=== PATIENT | female | born 1995 | race Caucasian/White ===

== ENCOUNTER 2019-11-26 15:18 | Emergency (ER) | payer OTHER, SELFPAY ==
--- NOTE | ~2019-11-26 | CT_ITS ---
EXAMINATION: CT abdomen pelvis wo con EXAM DATE: 11/26/2019 19:29 INDICATION: Right-sided abdominal pain, right flank pain radiating to back. TECHNIQUE: Spiral CT of the abdomen and pelvis was performed without contrast. Axial, coronal and sag ittal images were reviewed. The dose-length product (DLP) for this examination was 296.79 mGy-cm. T he exposure was tailored according to patient size (auto mA exposure control), and iterative reconstr uction (ASIR) was used as additional dose reduction technique. There is no prior study for compariso n. FINDINGS: There is no nephrolithiasis or hydronephrosis. The uterus is retroverted and morphologica lly normal. The bladder is unremarkable. The liver, spleen, adrenal glands and pancreas are unrema rkable. Gallbladder is unremarkable. No biliary obstruction. There is no retroperitoneal or pelvic lymphadenopathy. The appendix is normal. The stomach and small bowel are unremarkable. There is moderate amount of c olonic stool. No free intraperitoneal gas. The heart is normal in size. There are no pericardial or pleural effusions. The lung bases are unremarkable. The bones are unremarkable. IMPRESSION: 1. No nephrolithiasis, hydronephrosis or acute intra-abdominal findings. 2. Moderate colonic stool. Reviewed, dictated and finalized at location A.
[2019-11-26 15:46] VITALS: BP 114/74; PULSE 94; RESP 16; TEMP 37; O2SAT 100
[2019-11-26 16:03] LABS: Basophils Percent Auto 0.3 % (0.2-1.2); Eosinophils Absolute Auto 0.1 K/mm3 (0-0.3); Eosinophils Percent Auto 2.2 % (0-4.4); Hemoglobin 12.5 g/dL (12.0-15.0); Lymphocytes Absolute Auto 1.41 K/mm3 (0.9-3.2); Lymphocytes Percent Auto 23.7 % (18.3-44.2); Mean Corpuscular HGB Conc 33.8 g/dl (32-36); Mean Corpuscular Hemoglobin 28.8 pg (26-34); Mean Corpuscular Volume 85.3 fl (80-100); Mean Platelet Volume 11.8 fl (7.4-10.4); Monocytes Absolute Auto 0.5 K/mm3 (0.1-0.6); Monocytes Percent Auto 7.6 % (2.6-8.5); Neutrophils Percent Auto 66.2 % (45.5-73.1); Platelet Count Result 144 k/mm3 (150-375); Red Blood Count 4.34 M/mm3 (4.2-5.4); Red Cell Distribution Width 12.4 % (11.5-14.5)
[2019-11-26 16:14] LABS: Alanine Aminotransferase 15 U/L (4-35); Albumin Level 4.2 g/dL (3.5-5.1); Alkaline Phosphatase 37 U/L (38-126); Anion Gap 7 mmol/L (8-16); Aspartate Amino Transferase 23 U/L (14-36); Bilirubin,Total 0.4 mg/dL (0.2-1.3); Blood Urea Nitrogen 13 mg/dL (7-17); Calcium 8.8 mg/dL (8.4-10.2); Carbon Dioxide 27 mmol/L (22-30); Chloride 101 mmol/L (98-107); Estimated CRCL calculation 103 ml/min; Estimated Glomerular Filt Rate > 60; Glucose 90 mg/dL (65-105); Lipase 114 U/L (23-300); Potassium 3.8 mmol/L (3.4-5.0); Sodium 135 mmol/L (137-145)
[2019-11-26 16:25] LABS: Add Urine Microscopic? YES; Appearance Urine Clear (Clear); Bacteria Urine Trace /hpf; Bilirubin Urine Negative (Negative); Blood Urine Negative (Negative); Color Urine Yellow (Yellow); Glucose Urine UA Negative (Negative); Ketones Urine Negative (Negative); Leukocyte Esterase Ur 2+ LEU/UL (Negative); Mucus Urine Rare /lpf; Nitrate Urine Negative (Negative); Protein Urine Negative (Negative); Specific Grav Ur 1.015 (1.001-1.035); Squamous Epithelial Cell Urine Many /hpf (Few); Urobilinogen Urine Negative mg/dL (<2.0)
--- NOTE | 2019-11-26 18:38 | ED.ABDPAIN ---
HPI - Abdominal Pain General Chief Complaint: Abdominal Pain Stated Complaint: flank pain, on abx for uti Time Seen by Provider: 11/26/19 16:40 Source: patient Mode of arrival: ambulatory Limitations: no limitations History of Present Illness HPI narrative: Patient is a 24-year-old female who presents with right flank pain for the last 2 days as an intermittent aching pain and pressure was having urinary frequency and urgency over the weekend saw her primary care doctor Friday and was started on an antibiotic. Patient notes pain that intensifies throughout the day and resolves. Patient denies fever vomiting diarrhea vaginal complaints. Patient denies similar occurrence in the past and presents in no distress per private vehicle Related Data Home Medications Medication Instructions Recorded Confirmed levothyroxine 100 mcg PO DAILY 11/26/19 montelukast [Singulair] 10 mg PO HS 11/26/19 nitrofurantoin monohyd/m-cryst 100 mg 11/26/19 Allergies Allergy/AdvReac Type Severity Reaction Status Date / Time cefdinir Allergy Mild Hives / Verified 11/26/19 17:50 Red Face Review of Systems Review of Systems: All systems reviewed & are unremarkable except as noted in HPI and below PMFSH Social History Social History (Updated 11/26/19 @ 18:40 by Aly Barton PA-C) Smoking status: Never smoker Gender identity (if verbalized by the patient): Female Exam Narrative: Exam Narrative: GENERAL: Well-appearing, well-nourished, and in no acute distress. HEAD: Normocephalic, atraumatic. EYES: PERRLA and EOMI. ENT: Nares clear, no rhinorrhea or epistaxis. Mucous membranes moist. CHEST: Clear to auscultation. No respiratory distress. No wheezes rales or rhonchi HEART: Regular rate and rhythm. No murmur heard. Normal peripheral pulses. ABDOMEN: Soft, mild tenderness to the right side of the abdomen no rebound or guarding, nondistended EXTREMITIES: Normal range of motion. No edema. SKIN: Warm, dry, no rash. NEURO: No focal deficits. Alert and oriented x3. PSYCH: Normal mood and affect. Course Course Emergency Course: Patient in the room in no distress aware of case findings treatment plan and diagnosis agreeing to follow-up as directed with gynecology and primary care. Vital Signs Vital signs: Vital Signs Temperature 98.6 F 11/26/19 15:46 Pulse Rate 94 11/26/19 15:46 Respiratory Rate 16 11/26/19 15:46 Blood Pressure 114/74 11/26/19 15:46 Pulse Oximetry 100 11/26/19 15:46 Temperature 98.6 F 11/26/19 15:46 Pulse Rate 94 11/26/19 15:46 Respiratory Rate 16 11/26/19 15:46 Blood Pressure 114/74 11/26/19 15:46 Pulse Oximetry 100 11/26/19 15:46 MDM - Abdominal Pain MDM Narrative Medical decision making narrative: Patient with likely urinary tract infection and constipation as the etiology of her discomfort afebrile nontoxic-appearing no distress made aware of case findings treatment plan and diagnosis felt appropriate for outpatient reevaluation Lab Data Result diagrams: 11/26/19 15:53 11/26/19 15:53 Labs: Lab Results 11/26/19 11/26/19 11/26/19 Range/Units 15:53 15:53 16:02 WBC 6.0 (4.5-10.0) K/mm3 RBC 4.34 (4.2-5.4) M/mm3 Hgb 12.5 (12.0-15.0) g/dL Hct 37.0 (37.0-47.0) % MCV 85.3 (80-100) fl MCH 28.8 (26-34) pg MCHC 33.8 (32-36) g/dl RDW 12.4 (11.5-14.5) % Plt Count 144 L (150-375) k/mm3 MPV 11.8 H (7.4-10.4) fl Immature Gran % (Auto) 0.0 (0-0.5) % Neut % (Auto) 66.2 (45.5-73.1) % Lymph % (Auto) 23.7 (18.3-44.2) % [place] % (Auto) 7.6 (2.6-8.5) % Eos % (Auto) 2.2 (0-4.4) % Baso % (Auto) 0.3 (0.2-1.2) % Lymph # (Auto) 1.41 (0.9-3.2) K/mm3 [place] # (Auto) 0.5 (0.1-0.6) K/mm3 Eos # (Auto) 0.1 (0-0.3) K/mm3 Baso # (Auto) 0.0 (0.0-0.1) K/mm3 Abs Immat Gran (auto) 0.00 (0.00-0.031) K/mm3 Absolute Neuts (auto) 4.0 (1.3-6.7) K/mm3 Absolute Nu
[2019-11-26 20:04] VITALS: BP 110/59; PULSE 80; RESP 18; TEMP 36.6; O2SAT 100
== END 2019-11-26 20:05 | disposition home or self-care (01) ==
PROVIDERS: Emergency Provider Emergency Medicine; PCP Nurse Practitioner Adult Health
DX: N39.0 Urinary tract infection, site not specified (principal)
CPT/HCPCS: 36415; 74176; 80053; 81001; 81025; 83690; 85025; 99284

== ENCOUNTER → 2020-07-21 06:58 | Outpatient (CLI) | payer OTHER, SELFPAY ==
[2020-07-21 19:49] LABS: SARS-CoV-2 RNA PCR Negative
== END ==
PROVIDERS: PCP Nurse Practitioner Adult Health; Visit Provider Nurse Practitioner Adult Health
DX: Z20.822 Contact with and (suspected) exposure to COVID-19 (principal)
CPT/HCPCS: C9803; U0003; U0005

== ENCOUNTER → 2020-08-05 06:38 | Outpatient (CLI) | payer OTHER, SELFPAY ==
[2020-08-06 00:41] LABS: SARS-CoV-2 RNA PCR Negative
== END ==
PROVIDERS: PCP Nurse Practitioner Adult Health; Visit Provider Nurse Practitioner Adult Health
DX: Z20.822 Contact with and (suspected) exposure to COVID-19 (principal); R09.81 Nasal congestion
CPT/HCPCS: C9803; U0003; U0005

== ENCOUNTER 2020-09-07 08:54 | Emergency (ER) | payer OTHER, SELFPAY ==
[2020-09-07 08:56] VITALS: BP 109/66; PULSE 75; RESP 19; TEMP 36.3; O2SAT 100
[2020-09-07] MEDS: FAMOTIDINE 20 MG TABLET PO (09:15)
[2020-09-07] MEDS: diphenhydrAMINE HCl CAP 25 MG CAPSULE PO (09:15)
--- NOTE | 2020-09-07 09:47 | ED.ALLEREA ---
HPI - Allergic Reaction General Chief complaint: Allergic Reaction Stated complaint: allergic reaction Time Seen by Provider: 09/07/20 09:06 Source: patient Mode of arrival: ambulatory Limitations: no limitations History of Present Illness HPI narrative: This is a 24-year-old female that presents to the emergency department for itchy rash since this morning. Reports she recently finished nitrofurantoin for urinary tract infection. This was prescribed by her OB. She is currently about 19 weeks . Reports everything has been going well with the . Denies any pelvic cramping or vaginal bleeding currently. She is feeling baby moving. Denies fever, swelling in the mouth or throat, or shortness of breath. Related Data Home Medications Medication Instructions Recorded Confirmed levothyroxine 100 mcg PO DAILY 11/26/19 montelukast [Singulair] 10 mg PO HS 11/26/19 nitrofurantoin monohyd/m-cryst 100 mg 11/26/19 Allergies Allergy/AdvReac Type Severity Reaction Status Date / Time cefdinir Allergy Severe Hives / Verified 09/07/20 09:11 Red Face Review of Systems Review of Systems: Narrative: CONSTITUTIONAL: Denies fever SKIN: Reports rash and itching. All systems reviewed & are unremarkable except as noted in HPI and below PMFSH Past Medical History Medical History (Updated 09/07/20 @ 09:53 by Rose Marie Rdz PA-C) History of hypothyroidism Social History Social History (Updated 11/26/19 @ 18:40 by Aly Barton PA-C) Smoking status: Never smoker Gender identity (if verbalized by the patient): Female Exam Narrative: Exam Narrative: GENERAL: Well-appearing, well-nourished, and in no acute distress. HEAD: Normocephalic, atraumatic. EYES: EOMI. ENT: Nares clear, no rhinorrhea or epistaxis. Mucous membranes moist. Oropharynx without tonsillar hypertrophy exudate or other lesions. Bilateral TMs pearly piña non-bulging NECK: Supple. No adenopathy or masses. CHEST: Clear to auscultation. No respiratory distress. No wheezes rales or rhonchi HEART: Regular rate and rhythm. No murmur heard. Normal peripheral pulses. EXTREMITIES: Normal range of motion. No edema. SKIN: Warm, dry. Red, macular rash present diffusely NEURO: No focal deficits. Alert and oriented x3. PSYCH: Normal mood and affect Course Vital Signs Vital signs: Vital Signs Temperature 97.3 F L 09/07/20 08:56 Pulse Rate 75 09/07/20 08:56 Respiratory Rate 19 09/07/20 08:56 Blood Pressure 109/66 09/07/20 08:56 Pulse Oximetry 100 09/07/20 08:56 Temperature 97.3 F L 09/07/20 08:56 Pulse Rate 75 09/07/20 08:56 Respiratory Rate 19 09/07/20 08:56 Blood Pressure 109/66 09/07/20 08:56 Pulse Oximetry 100 09/07/20 08:56 MDM - Allergic Reaction MDM Narrative Medical decision making narrative: Patient presents the emergency department for itchy rash after recently finishing an antibiotic. Given dose of Decadron, Pepcid and Benadryl in the ED. Will be instructed on antihistamines for home as well. She was instructed to follow-up with her primary doctor. She was given warnings to return to the ER Patient is currently 19 weeks . Denies any problems with the . Is feeling baby moving. Has another follow-up visit next week Critical Care Time Critical Care Time Critical Care Time: No Discharge Plan Discharge Clinical Impression: Allergic reaction Qualifiers: Encounter type: initial encounter Qualified Code(s): T78.40XA - Allergy, unspecified, initial encounter Patient Disposition: Home, Self-Care Condition: Stable Instructions: Urticaria (ED) Additional Instructions: Return to the emergency department if you experience fever, difficulty breathing, trouble swallowing, or any other symptoms that are concerning to you Take a Pepcid and Zyrtec daily. Benadryl as needed for severe itching Follow-up with your primary care doctor and your OB at your next scheduled ap
== END 2020-09-07 10:03 | disposition home or self-care (01) ==
PROVIDERS: Emergency Provider Emergency Medicine; PCP Nurse Practitioner Adult Health
DX: O9A.212 Injury, poisoning and certain other consequences of external causes complicating pregnancy, second trimester (principal); T78.40XA Allergy, unspecified, initial encounter; Z3A.19 19 weeks gestation of pregnancy
CPT/HCPCS: 99283; A9270

== ENCOUNTER 2020-09-08 17:14 | Emergency (ER) | payer OTHER, SELFPAY ==
[2020-09-08 17:18] VITALS: BP 106/60; PULSE 76; RESP 18; TEMP 36.6; O2SAT 100
--- NOTE | 2020-09-08 17:25 | PC.NURSE ---
Patient tells me that she last took zyrtec and pepcid this AM and one benadryl at approximately 1430 today. She reports that hives have been worsening throughout the day and is uncomfortable with the itching at this time. No other concerns are reported by the patient at this time.
[2020-09-08] MEDS: predniSONE 20 MG TABLET 40 MG PO (18:45)
[2020-09-08 18:46] VITALS: BP 102/65; PULSE 88; RESP 19; TEMP 36.9; O2SAT 100
--- NOTE | 2020-09-08 19:04 | ED.GENADULT ---
HPI - General Adult General Chief complaint: Allergic Reaction Stated complaint: allergic reAction Time Seen by Provider: 09/08/20 17:22 Source: patient and RN notes reviewed Mode of arrival: ambulatory Limitations: no limitations History of Present Illness HPI narrative: Patient is a 24-year-old female who presents with recurrence of her hives patient was seen recently for this they began after taking antibiotics was started on antihistamines and had improvement but today had a reoccurrence patient presents noting itching and hives but denies other URI symptoms or complaints was nontoxic-appearing on arrival notes that her URI symptoms have resolved Related Data Home Medications Medication Instructions Recorded Confirmed levothyroxine 100 mcg PO DAILY 11/26/19 montelukast [Singulair] 10 mg PO HS 11/26/19 nitrofurantoin monohyd/m-cryst 100 mg 11/26/19 Allergies Allergy/AdvReac Type Severity Reaction Status Date / Time cefdinir Allergy Severe Hives / Verified 09/08/20 17:34 Red Face Review of Systems Review of Systems: All systems reviewed & are unremarkable except as noted in HPI and below PMFSH Past Medical History Medical History History of hypothyroidism Social History Social History Smoking status: Never smoker Gender identity (if verbalized by the patient): Female Exam Narrative: Exam Narrative: GENERAL: Well-appearing, well-nourished, and in no acute distress. HEAD: Normocephalic, atraumatic. EYES: PERRLA and EOMI. ENT: Nares clear, no rhinorrhea or epistaxis. Mucous membranes moist. Oropharynx without tonsillar hypertrophy exudate or other lesions. No angioedema in the oropharynx NECK: Supple. No adenopathy or masses. Stridor CHEST: Clear to auscultation. No respiratory distress. No wheezes rales or rhonchi HEART: Regular rate and rhythm. No murmur heard. Normal peripheral pulses. EXTREMITIES: Normal range of motion. No edema. SKIN: Warm, dry, patient with a few scattered hives on exam NEURO: No focal deficits. Alert and oriented x3. Cranial nerves II through XII grossly intact PSYCH: Normal mood and affect. Course Course Emergency Course: Patient with a urticaria will be discharged home with continued instructions for antihistamines she has discontinued the antibiotics is afebrile nontoxic-appearing felt appropriate for outpatient reevaluation by primary care Vital Signs Vital signs: Vital Signs Temperature 97.9 F 09/08/20 17:18 Pulse Rate 76 09/08/20 17:18 Respiratory Rate 18 09/08/20 17:18 Blood Pressure 106/60 09/08/20 17:18 Pulse Oximetry 100 09/08/20 17:18 Temperature 98.4 F 09/08/20 18:46 Pulse Rate 88 09/08/20 18:46 Respiratory Rate 19 09/08/20 18:46 Blood Pressure 102/65 09/08/20 18:46 Pulse Oximetry 100 09/08/20 18:46 Medical Decision Making MDM Narrative Medical decision making narrative: Patient in the room no distress aware of case findings treatment plan and diagnosis agreeing to follow-up as instructed or to return if symptoms worsen or concerns patient is afebrile nontoxic-appearing in no distress Vital Signs Vital Signs: Vital Signs Temperature 97.9 F 09/08/20 17:18 Pulse Rate 76 09/08/20 17:18 Respiratory Rate 18 09/08/20 17:18 Blood Pressure 106/60 09/08/20 17:18 Pulse Oximetry 100 09/08/20 17:18 Temperature 98.4 F 09/08/20 18:46 Pulse Rate 88 09/08/20 18:46 Respiratory Rate 19 09/08/20 18:46 Blood Pressure 102/65 09/08/20 18:46 Pulse Oximetry 100 09/08/20 18:46 Discharge Plan Discharge Clinical Impression: Urticaria Patient Disposition: Home, Self-Care Condition: Stable Instructions: Antibiotic Form, Urticaria (ED) Additional Instructions: Follow up with your primary care provider within 5-7 days. Go to ER for shortness of breath, difficulty breathi
[2020-09-08] MEDS: SODIUM CHLORIDE 0.9% IV 1,000 ML 999 ML IV CONT (20:44)
[2020-09-08] MEDS: FAMOTIDINE 20 MG/2 ML VIAL IV PUSH (20:45)
[2020-09-08] MEDS: diphenhydrAMINE HCl INJ 50 MG/ML VIAL 25 MG IV PUSH (20:45)
[2020-09-08 21:56] VITALS: BP 109/66; PULSE 72; RESP 16; TEMP 36.7; O2SAT 98
== END 2020-09-08 21:56 | disposition home or self-care (01) ==
PROVIDERS: Emergency Provider Emergency Medicine; PCP Nurse Practitioner Adult Health
DX: L50.9 Urticaria, unspecified (principal); E03.9 Hypothyroidism, unspecified
CPT/HCPCS: 96361; 96374; 96375; 99284; J1200; J7030; J7512

== ENCOUNTER 2021-04-19 14:51 | Outpatient (CLI) | payer OTHER, SELFPAY ==
--- NOTE | ~2021-04-19 | US_ITS ---
EXAMINATION: US pelvic complete w TV EXAM DATE: 04/19/2021 15:36 INDICATION: Menorrhagia. TECHNIQUE: Pelvic transabdominal and transvaginal sonogram was performed. There are multiple graysca le and Doppler images available for interpretation. There is no prior study for comparison. FINDINGS: Uterus measures 8.0 x 4.6 cm, and is morphologically normal. Endometrial stripe measures 5 mm, within normal limits. There is small free pelvic fluid. Right adnexa: The ovary measures 3.4 x 1.9 x 2.3 cm and is morphologically normal. Ovarian vascular f low confirmed. Left adnexa: The ovary measures 3.0 x 1.6 x 1.7 cm and is morphologically normal. Ovarian vascular fl ow confirmed. IMPRESSION: 1. Unremarkable pelvic ultrasound exam. Reviewed, dictated and finalized at location A. 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
== END 2021-04-19 14:52 | disposition home or self-care (01) ==
PROVIDERS: PCP Nurse Practitioner Adult Health; Visit Provider Nurse Practitioner Adult Health
DX: N92.0 Excessive and frequent menstruation with regular cycle (principal)
CPT/HCPCS: 76830; 76856

== ENCOUNTER → 2021-05-02 01:29 | Outpatient (CLI) | payer OTHER, SELFPAY ==
[2021-05-02 21:10] LABS: SARS-CoV-2 RNA PCR Positive
== END ==
PROVIDERS: PCP Nurse Practitioner Adult Health; Visit Provider Nurse Practitioner Adult Health
DX: U07.1 COVID-19 (principal)
CPT/HCPCS: C9803; U0003; U0005

== ENCOUNTER 2021-09-18 16:57 | Outpatient (CLI) | payer OTHER, SELFPAY ==
[2021-09-18 17:19] LABS: Basophils Percent Auto 0.2 % (0.2-1.2); Eosinophils Absolute Auto 0.2 K/mm3 (0-0.3); Eosinophils Percent Auto 2.4 % (0-4.4); Hematocrit 35.9 % (37.0-47.0); Hemoglobin 12.3 g/dL (12.0-15.0); Immature Granulocyte Absolute 0.02 K/mm3 (0.00-0.031); Immature Granulocyte Percent A 0.3 % (0-0.5); Immature Platelet Fraction Pct 9.1 % (0.9-11.2); Lymphocytes Absolute Auto 1.14 K/mm3 (0.9-3.2); Mean Corpuscular HGB Conc 34.3 g/dl (32-36); Mean Corpuscular Hemoglobin 30.7 pg (26-34); Mean Corpuscular Volume 89.5 fl (80-100); Mean Platelet Volume 11.2 fl (7.4-10.4); Monocytes Absolute Auto 0.5 K/mm3 (0.1-0.6); Monocytes Percent Auto 7.6 % (2.6-8.5); Neutrophils Absolute Auto 4.5 K/mm3 (1.3-6.7); Neutrophils Percent Auto 71.5 % (45.5-73.1); Platelet Count Result 144 k/mm3 (150-375); Red Blood Count 4.01 M/mm3 (4.2-5.4); Red Cell Distribution Width 13.7 % (11.5-14.5); White Blood Count 6.3 K/mm3 (4.5-10.0)
[2021-09-18 18:09] LABS: HIV 1/2 Ab P24 Ag Result Negative (Negative)
[2021-09-18 18:46] LABS: Hepatitis C Virus Antibody Negative (Negative)
[2021-09-18 18:54] LABS: Hepatitis B Surface Antigen Negative (Negative); Rubella IgG Antibody 79.5 IU/ML
[2021-09-20 07:29] LABS: Rapid Plasma Reagin Non-Reactive (NonReactive)
[2021-09-21 16:56] LABS: CMV IgG Antibody <0.60 U/mL (<0.60)
== END 2021-09-18 16:58 | disposition home or self-care (01) ==
LOC: ANHLAB 16:59
PROVIDERS: PCP Nurse Practitioner Adult Health; Visit Provider Obstetrics & Gynecology
DX: O09.891 Supervision of other high risk pregnancies, first trimester (principal); O99.280 Endocrine, nutritional and metabolic diseases complicating pregnancy, unspecified trimester; N94.89 Other specified conditions associated with female genital organs and menstrual cycle; E03.9 Hypothyroidism, unspecified; Z3A.00 Weeks of gestation of pregnancy not specified
CPT/HCPCS: 36415; 82105; 82677; 84443; 84702; 85025; 85055; 86336; 86592; 86644; 86703; 86747; 86762; 86787; 86803; 86850; 86900; 86901; 87086; 87340; G0432

== ENCOUNTER 2022-01-15 10:43 | Observation (INO) | payer OTHER, SELFPAY ==
--- NOTE | 2022-01-15 10:43 | OBADM ---
This patient, Millicent Centeno, admitted to the OB room OB Post [facility] for observation. Patient/family oriented to hospital policies and general routines including ID bracelet, bed and alarms, visiting hours, pain management, procedures, bathroom and other care routines, personal items, smoking policy, room service/diet, and visiting hours. Patient/Family are encouraged to report perceived risks to care and to ask questions if they do not understand what they are told or what they should do.
[2022-01-15 11:00] VITALS: BP 100/62; PULSE 95; BMI 24.8
[2022-01-15 11:01] VITALS: BP 98/61; PULSE 97
[2022-01-15 11:16] VITALS: BP 106/69; PULSE 96
[2022-01-15 11:31] VITALS: BP 104/69; PULSE 84
[2022-01-15 12:11] LABS: Appearance Urine Clear (Clear); Bilirubin Urine Negative (Negative); Blood Urine Negative (Negative); Color Urine Yellow (Yellow); Glucose Urine UA Negative (Negative); Ketones Urine Negative (Negative); Leukocyte Esterase Ur Trace LEU/UL (NEGATIVE); Nitrate Urine Negative (Negative); Protein Urine Negative (Negative)
[2022-01-15 12:55] LABS: Add Urine Microscopic? NO
--- NOTE | 2022-01-16 11:43 | PM.OBTRLD ---
OB - Triage/Final Diagnosis Visit Information Comments/Additional reasons for admission: I have assessed the risk for this patient, Millicent eCnteno, and determined that she would benefit from observation care. Evaluation Laboratory results: Laboratory Tests 01/15/22 11:50 Urine Color Yellow Urine Appearance Clear Urine pH 7.0 Ur Specific Thayer 1.020 Urine Protein Negative Urine Glucose (UA) Negative Urine Ketones Negative Ur Blood (Man) Negative Urine Nitrate Negative Urine Bilirubin Negative Urine Urobilinogen 1.0 Ur Leukocyte Esterase Trace H Final Diagnosis (1) Abdominal pain affecting : Code(s): O26.899 - Other specified related conditions, unspecified trimester; R10.9 - Unspecified abdominal pain Status: Acute
== END 2022-01-15 13:05 | disposition home or self-care (01) ==
PROVIDERS: Admitting Provider Obstetrics & Gynecology; Visit Provider Obstetrics & Gynecology
DX: O47.03 False labor before 37 completed weeks of gestation, third trimester (principal); Z3A.35 35 weeks gestation of pregnancy
CPT/HCPCS: 81003; 87086; G0378; G0379

== ENCOUNTER 2022-02-12 05:14 | Inpatient (IN) | payer OTHER, SELFPAY ==
[2022-02-12] VITALS (92 sets, daily range): BP systolic 82–120; BP diastolic 53–82; PULSE 51–101; RESP 16; TEMP 36.3–36.8; O2SAT 74–100; BMI 25.4
--- OUTSIDE RECORDS SUMMARY | 2022-02-12 05:22 | XMS_ITS ---
:1995 Author Care Team Providers Name Role Phone Valente Hoang Primary Care Provider Unavailable Allergies None recorded. Medications Name Status Start Date Stop Date ? ? Deb-D 24 Hour 180 mg-240 mg tablet,extended release Active ? Not available TAKE 1 TABLET BY MOUTH ONCE DAILY FOR 30 DAYS azithromycin 250 mg tablet Active ? Not a vailable Euthyrox 100 mcg tablet Active ? Not avai lable fluconazole 150 mg tablet Active ? Not av ailable TAKE 1 TABLET BY MOUTH DIRECTED FOR 1 DAY levothyroxine 75 mcg tablet Active ? Not available medroxyprogesterone 150 mg/mL intramuscular suspension Active ? Not available methylprednisolone 4 mg tablets in a dose pack Active ? Not available montelukast 10 mg tablet Active ? Not nicho ilable TAKE 1 TABLET BY MOUTH ONCE DAILY nitrofurantoin monohydrate/macrocrystals 100 mg capsule Active ? Not available TAKE 1 CAPSULE BY MOUTH EVERY 12 HOURS FOR 7 DAYS Problems None recorded. Procedures None recorded. Results Lab Results None recorded. Past Encounters None recorded. Social History None recorded. Vaccine List None recorded. Plan of Care Reminders Provider Appointments None recorded. ? ? Lab None recorded. ? ? Referral None recorded. ? ? Procedures None recorded. ? ? Surgeries None recorded. ? ? Imaging None recorded. ? ? Vitals None recorded.
--- OUTSIDE RECORDS SUMMARY | 2022-02-12 05:22 | XMS_ITS ---
:1995 Author Care Team Providers Name Role Phone JAVIER GARBER NP Primary Care Provider Unavailable Allergies Code Code System Name Reaction Severity Status Onset Omnicef Hives ? Active ? Penicillins ? ? Active ? Medications Name Status Start Date Stop Date ? ? Deb-D 24 Hour 180 mg-240 mg tablet,extended release Complete d ? 10/20/2019 TAKE 1 TABLET BY MOUTH ONCE DAILY FOR 30 DAYS amoxicillin 875 mg-potassium clavulanate 125 mg Unknown ? Not available tablet azithromycin 250 mg tablet Completed ? 04/18 [id number]-dqvbetwr 50 mg-300 Unknown ? Not available mg-40 mg capsule cefuroxime axetil 250 mg tablet Completed ? 08/22/2017 Depo-Provera 150 mg/mL intramuscular suspension Completed ? 08/04/2019 Inject 1 mL every 3 months by intramuscular route. Depo-Provera 150 mg/mL intramuscular syringe Completed ? 02/11/2019 Inject 1 mL every 3 months by intramuscular route. doxycycline hyclate 100 mg capsule Completed ? 09/01/2018 Take 1 capsule twice a day by oral route for 10 days. doxycycline monohydrate 100 mg tablet Completed ? 09/01/2018 Euthyrox 100 mcg tablet Active ? Not avai lable TAKE 1 TABLET BY MOUTH ONCE DAILY fluconazole 150 mg tablet Completed ? 2020 fluticasone propionate 50 mcg/actuation nasal Completed ? 09/15/2018 spray,suspension Kenalog 40 mg/mL suspension for injection Completed ? 09/01/2018 Take 1 mL every day by injection route for 1 day. levofloxacin 500 mg tablet Completed ? 08/22 levothyroxine 25 mcg tablet Unknown ? Not available levothyrox
--- OUTSIDE RECORDS SUMMARY | 2022-02-12 05:22 | XMS_ITS ---
:1995 Author Care Team Providers Name Role Phone JAVIER TALAVERAKP [facility] Primary Care Provider [phone] FLY PEREZ MD Pe Manager [phone] Allergies Code Code System Name Reaction Severity Status Onset 2230 RxNorm Cephalexin Itching ? Active ? Omnicef Hives ? Active ? Penicillins ? ? Active ? Medications Name Status Start Date Stop Date ? ? albuterol sulfate HFA 90 mcg/actuation aerosol inhaler Completed ? 04/03/2021 INHALE 2 PUFFS BY MOUTH EVERY 4 HOURS NEEDED Deb-D 24 Hour 180 mg-240 mg tablet,extended release Active ? Not available TAKE 1 TABLET BY MOUTH ONCE DAILY FOR 30 DAYS amoxicillin 875 mg-potassium clavulanate 125 mg Unknown ? Not available tablet aspirin 81 mg tablet,delayed release Active ? Not available TAKE 1 TABLET BY MOUTH ONCE DAILY azithromycin 250 mg tablet Completed ? 08/29 TAKE 2 TABLETS BY MOUTH ON DAY 1 AND EN TAKE 1 TABLET BY MOUTH ONCE A DAY ON DAY 2 THROUGH DAY 5 BinaxNOW COVID-19 Ag Self Test kit Active ? Not available Use as directed [id number]-[id number]-szjkurnd 50 mg-300 Unknown ? Not available mg-40 [...]
--- NOTE | 2022-02-12 05:50 | LDADM ---
This patient, Millicent Centeno, was admitted to Labor/Delivery/Recovery 103 on 02/12/22 at 05:14. Plans for labor, pain management and were discussed with patient. Patient/family oriented to hospital policies and general routines including ID bracelet, bed and alarms, visiting hours, pain management, procedures, bathroom and other care routines, personal items, smoking policy, room service/diet and guest tray routines, security routines, and visiting hours. Patient/Family are encouraged to report perceived risks to care and to ask questions if they do not understand what they are told or what they should do. See OBIX for further documentation.
[2022-02-12 06:18] LABS: Basophils Percent Auto 0.2 % (0.2-1.2); Eosinophils Absolute Auto 0.2 K/mm3 (0-0.3); Eosinophils Percent Auto 2.5 % (0-4.4); Hematocrit 37.6 % (37.0-47.0); Hemoglobin 12.9 g/dL (12.0-15.0); Immature Granulocyte Absolute 0.03 K/mm3 (0.00-0.031); Immature Granulocyte Percent A 0.5 % (0-0.5); Immature Platelet Fraction Pct 9.6 % (0.9-11.2); Lymphocytes Absolute Auto 1.61 K/mm3 (0.9-3.2); Lymphocytes Percent Auto 26.7 % (18.3-44.2); Mean Corpuscular HGB Conc 34.3 g/dl (32-36); Mean Corpuscular Hemoglobin 31.1 pg (26-34); Mean Corpuscular Volume 90.6 fl (80-100); Mean Platelet Volume 11.6 fl (7.4-10.4); Monocytes Absolute Auto 0.6 K/mm3 (0.1-0.6); Monocytes Percent Auto 9.8 % (2.6-8.5); Neutrophils Absolute Auto 3.6 K/mm3 (1.3-6.7); Neutrophils Percent Auto 60.3 % (45.5-73.1); Platelet Count Result 131 k/mm3 (150-375); Red Blood Count 4.15 M/mm3 (4.2-5.4); Red Cell Distribution Width 13.1 % (11.5-14.5)
[2022-02-12] MEDS: OXYTOCIN 30 UNITS/NS 500 ML 30 UNITS/500 ML BAG IV CONT (06:40)
[2022-02-12] MEDS: LACTATED RINGERS 1,000 ML 125 ML IV CONT ×2 (06:40→07:59)
--- NOTE | 2022-02-12 07:17 | WPDOBADMIT ---
Obstetrics - Admit Note Admission Note: record reviewed. No pertinent additions to the history and/or any subsequent changes in the physical findings that are not consistent with the expected course of the were found. Additions to the history and/or subsequent changes in the physical findings follow. Millicent is a 26yo @ 39.0wks admitted for elective IOL. GBS negative complicated by: - Short interval ; last delivery 03/2021 - Hypothyroidism on levothyroxine - Thrombocytopenia; plts 144 - 119- 141 -125 - 106 - 131 (on admission) - Possible HSV exposure? no outbreaks-- ppx @ 36wks FHT's: 120's/ mod tim/ + accels/ no decels - cat 1 TOCO: ctx's q2-4min Cervix: 4/70/-2 Membranes: AROM, clear 0715 Pitocin: 2mU Pitocin per protocol Continuous monitoring; currently reassuring Anesthesia consult for epidural
--- NOTE | 2022-02-12 07:23 | WPDHPUPDATE1 ---
History and Physical Update Update Date/Time: 02/12/22 07:23 History and Physical has been reviewed, including an updated exam of the patient. There are NO changes in the patient's condition. Risks, benefits, and alternatives have been discussed and questions answered. Patient agrees to proceed with procedure.
--- NOTE | 2022-02-12 07:26 | WPDANESEPP ---
Anes - Eval Pre Procedure Procedure: Labor Epidural Date/Time: 02/12/22 07:26 Surgeon: Brad Preop Diagnosis: Pain during labor Pre Op Diagnosis: IOL Patient Data Age: 26 Gender: F Height: 1.71 m Weight: 75 kg Last Vital Signs Pulse 71 02/12/22 07:15 BP 120/74 02/12/22 07:15 O2 Del Method Room Air 02/12/22 05:50 Allergies Allergy/AdvReac Type Severity Reaction Status Date / Time cefdinir Allergy Severe Hives / Verified 02/12/22 06:03 Red Face Home Medications Medication Instructions Recorded Confirmed Type cetirizine 10 mg capsule (Zyrtec) 10 mg PO DAILY PRN Allergy Symptoms 09/18/21 02/12/22 History vits no.10-ferrous 1 tablet PO DAILY 09/18/21 02/12/22 History fumarate 65 mg iron-folic acid 1 mg tablet levothyroxine 150 mcg capsule 150 mcg PO DAILY #90 caps 01/03/22 02/12/22 Rx Laboratory Tests 02/12/22 02/12/22 02/12/22 06:02 06:02 06:02 WBC 6.0 K/mm3 K/mm3 (4.5-10.0) RBC 4.15 M/mm3 L M/mm3 (4.2-5.4) Hgb 12.9 g/dL g/dL (12.0-15.0) Hct 37.6 % % (37.0-47.0) MCV 90.6 fl fl (80-100) MCH 31.1 pg pg (26-34) MCHC 34.3 g/dl g/dl (32-36) RDW 13.1 % % (11.5-14.5) Plt Count 131 k/mm3 L k/mm3 (150-375) MPV 11.6 fl H fl (7.4-10.4) Immature Gran % (Auto) 0.5 % % (0-0.5) Neut % (Auto) 60.3 % % (45.5-73.1) Lymph % (Auto) 26.7 % % (18.3-44.2) Dale % (Auto) 9.8 % H % (2.6-8.5) Eos % (Auto) 2.5 % % (0-4.4) Baso % (Auto) 0.2 % % (0.2-1.2) Lymph # (Auto) 1.61 K/mm3 K/mm3 (0.9-3.2) Dale # (Auto) 0.6 K/mm3 K/mm3 (0.1-0.6) Eos # (Auto) 0.2 K/mm3 K/mm3 (0-0.3) Baso # (Auto) 0.0 K/mm3 K/mm3 (0.0-0.1) Abs Immat Gran (auto) 0.03 K/mm3 K/mm3 (0.00-0.031) Absolute Neuts (auto) 3.6 K/mm3 K/mm3 (1.3-6.7) Absolute Nucleated RBC 0.0 K/mm3 K/mm3 (0.0-0.012) Nucleated RBC % 0.0 % % (0.0-0.2) % Immature Plt Fraction 9.6 % % (0.9-11.2) RPR Pending Blood Type A Positive Antibody Screen Negative Patient hx anesthesia problems: none Family hx anesthesia problems: none Results Review: All pre-operative results and documents have been reviewed as part of the pre-operative evaluation. [facility] Past Medical History Medical History Encounter for insertion of intrauterine contraceptive device 06/16/2018 Encounter for removal of intrauterine contraceptive device 10/22/2018 Encounter for screening examination for sexually transmitted disease History of hypothyroidism Family History Family History Other Arthritis Social History Social History Smoking status: Never smoker Second hand tobacco smoke exposure: No Alcohol intake: never Substance use: never Has the Lack of Transportation Kept You From Medical Appointments or From Getting Medications?: No Within the Past 12 Months, Were You Worried Whether Your Food Would Run Out Before You Got Money to Buy More?: Never True What is Your Housing Situation Today?: I Have Housing Are You Worried That in the Next 2 Months, You May Not Have Your Own Housing to Live In?: No Do You Have Trouble Paying Your Heating Or Electricity Bill?: No Do You Have Trouble Paying For Medicines?: No Are You Currently Unemployed and Looking for Work?: No Highest Level of Education Completed: High School Diploma/GED Do You Have Trouble With Childcare or the Care of a Family Member?: No Gender identity (if verbalized by the patient): Female Sexual Orientation (if Verbalized by the Patient): Straight or Heterosexual Exam Day of Procedure 02/12/
--- NOTE | 2022-02-12 11:54 | PM.OBPRVD ---
OB - Delivery Note Procedure Delivery date: 02/12/22 Events: Elective Induction of Labor Induction method: Per Pitocin Protocol Delivery augmentation: Rupture of Membranes Delivery monitor: External FHT and External Uterine Route of delivery: Laceration Description: Periurethral Delivery repair: vicryl Quantitative Blood Loss (ml): 350 Anesthesia type: Epidural Disposition: Floor [place] Baby Date of : 02/12/22 Time of : 11:34 Weeks of gestation at delivery: 39 gender: Male Weight (pounds): 9 Weight (ounces): 0 presentation: vertex position: Left Occiput Anterior Placenta delivery description: Expressed Cord Vessel Description: 3 Vessels score one minute: 5 score five minutes: 9 Narrative: Millicent rapidly progressed to complete dilation with strong desire to push. She pushed for approximately 3 contractions with good maternal effort. She delivered the 's head over intact perineum. She easily delivered the infant's shoulders and body without complication. The was immediately placed skin to skin. The umbilical cord was then clamped and cut. A segment of the cord was collected for cord gases. The remaining cord blood was collected for typing. With Pitocin running and gentle downward traction on the cord, the placenta delivered without complications. Brisk bleeding was noted and bimanual massage was performed where mild lower uterine segment atony was noted. The atony resolved with good bimanual massage. However, misoprostol 800 mcg was placed rectally to prevent further atony. She was examined and a periurethral laceration was noted. The laceration was repaired using 3-0 Vicryl in the normal fashion. Good hemostasis was noted. Good fundal tone with minimal bleeding was noted. Sponge, lap, instrument, and needle counts were correct at the end the procedure. Mom and baby were left bonding in the birthing suite in stable condition. [facility] Delivery Billing Delivery Delivery: Delivery Charge
[2022-02-12] MEDS: miSOPROStol 200 MCG TABLET 800 MCG (11:55)
[2022-02-12] MEDS: LORATADINE 10 MG TABLET PO (12:00)
--- NOTE | 2022-02-12 14:34 | PC.NURSE ---
Patient transferred to post room #277 via wheelchair. Support person present. Oriented to unit, room, information board, rooming in, admission packet and security measures. Patient verbalizes understanding.
[2022-02-12] MEDS: DOCUSATE SODIUM 100 MG CAPSULE PO (16:27)
[2022-02-12] MEDS: IBUPROFEN 600 MG TABLET PO (16:27)
[2022-02-12 16:28] LABS: Rapid Plasma Reagin Non-Reactive (NonReactive)
[2022-02-12] MEDS: ACETAMINOPHEN 325 MG TABLET 650 MG PO (20:02)
[2022-02-12] MEDS: SIMETHICONE 80 MG TAB.CHEW PO (20:25)
[2022-02-13 01:15] VITALS: BP 98/58; PULSE 74; RESP 16; TEMP 36.6; O2SAT 98
[2022-02-13] MEDS: IBUPROFEN 600 MG TABLET PO ×4 (01:28→22:37)
[2022-02-13] MEDS: SIMETHICONE 80 MG TAB.CHEW PO ×5 (01:28→22:42)
[2022-02-13 05:00] VITALS: BP 94/58; PULSE 60; RESP 16; TEMP 36.4; O2SAT 98
[2022-02-13] MEDS: LEVOTHYROXINE SODIUM 150 MCG TABLET PO (05:16)
[2022-02-13 06:11] LABS: Hematocrit 32.6 % (37.0-47.0); Mean Corpuscular HGB Conc 33.7 g/dl (32-36); Mean Corpuscular Hemoglobin 30.6 pg (26-34); Mean Corpuscular Volume 90.6 fl (80-100); Mean Platelet Volume 12.3 fl (7.4-10.4); Platelet Count Result 104 k/mm3 (150-375); White Blood Count 7.6 K/mm3 (4.5-10.0)
[2022-02-13 07:25] VITALS: BP 97/54; PULSE 66; RESP 16; TEMP 36.2; O2SAT 98
--- NOTE | 2022-02-13 07:30 | PC.NURSE ---
PT introductions made and plan of care discussed per post , pain management, breast feeding, daily care activities. PT sole recipient of such instructions and no barriers to learning identified at this time. PT received such instructions per one to one discussion, mom baby care guide and demonstrations this shift. PT verbalized understanding of such care.
--- NOTE | 2022-02-13 08:36 | WPDANLDPN2 ---
Anes-Prog Note L&D Date/Time: 02/13/22 08:36 Comfortable throughout: labor and delivery Neuraxial method: epidural Epidural/Spinal procedure site: clean & non-tender Neuro status: Neuro function grossly intact. Cardiovascular status: normal Respiratory status: normal Airway patency: baseline Mental status: baseline Post-Op hydration status: normal Vital Signs: Last Vital Signs Temp 97.1 F L 02/13/22 07:25 Pulse 66 02/13/22 07:25 Resp 16 02/13/22 07:25 BP 97/54 L 02/13/22 07:25 Pulse Ox 98 02/13/22 07:25 O2 Del Method Room Air 02/12/22 21:15 Pain score (VAS): 0 Post-procedural complaints: none Patient feedback: Patient satisfied with anesthetic care.
[2022-02-13 09:00] VITALS: PULSE 66; RESP 16; O2SAT 98
[2022-02-13] MEDS: ACETAMINOPHEN 325 MG TABLET 650 MG PO ×2 (09:01→17:44)
[2022-02-13] MEDS: DOCUSATE SODIUM 100 MG CAPSULE PO ×2 (09:02→17:45)
[2022-02-13] MEDS: MULTIVIT/MIN/PREN/FOL AC/IRON TABLET 1 TAB PO (09:02)
[2022-02-13] MEDS: LORATADINE 10 MG TABLET PO (09:03)
--- NOTE | 2022-02-13 12:13 | PC.NURSE ---
Addendum entered by Melody Rogers RN 02/13/22 12:17: RN also addressed the nipple shield in the room. Mother states she was using it because her intermittently bites instead of sucks like her last baby in 2020. Mother is demonstrating latching infant without the shield at this time to the left breast in a dangling cradle position. Mother denies pain with latching and when she experiences pain she detaches and latches more effectively. Original Note: [id number] Introductions were made, then consulted with patient to assess needs related to . Mother led the conversation with her?plans to feed?her and pumping for a freezer supply. Cautioned over stimulating and mother voiced understanding, then states that is her intention to breastfeed and pump her breast so she can stop but have a supply of breast milk for her . Resources provided for inpatient and outpatient services using a resource guide and mom/baby guide. Mother voiced understanding of information, will call if there is a request for assistance. Reported to primary RN.
--- NOTE | 2022-02-13 12:47 | P.PNOB_ITS ---
OB - PN: Subj Subjective Date/time seen: 02/13/22 11:53 Narrative: PPD#1 Millicent reports doing well today. Her bleeding is light. Her pain is controlled. She is tolerating regular diet, voiding, passing gas, and ambulating without issues. She is breast feeding. She would like her son circumcised. She would like to go home tomorrow. OB - PN: Obj Data Labs CBC & Chem 7: 02/13/22 05:12 Labs: Laboratory Results - last 24 hr 02/12/22 02/13/22 06:02 05:12 WBC 7.6 RBC 3.60 L Hgb 11.0 L Hct 32.6 L MCV 90.6 MCH 30.6 MCHC 33.7 RDW 13.0 Plt Count 104 L MPV 12.3 H RPR Non-reactive OB - PN A/P Assessment and Plan (1) Normal vaginal delivery of third : Code(s): O80 - Encounter for full-term uncomplicated delivery Status: Acute Plan day: 1 Plan: routine care and discharge home (tomorrow) Comments: - Pelvic rest; take meds as prescribed - ER return precautions: fever, n/v/abd pain, bleeding, HTN Time Spent With Patient Time: Total time spent is greater than 50% in coordination of care (as documented) at patient's floor/unit and/or counseling patient: Review of Systems Constitutional: Constitutional: Denies chills, Denies fever(s) and Denies headache(s) Eyes: Eyes: Denies change in vision ENT: Denies dizziness and Denies headache(s) Cardiovascular: Cardiovascular: Denies chest pain, Denies palpitations and Denies dyspnea Respiratory: Respiratory: Denies cough and Denies dyspnea Gastrointestinal: Gastrointestinal: Denies nausea and Denies vomiting Neurologic: Denies dizziness and Denies headache(s) Endocrine: Endocrine: Denies palpitations Exam Const: General: cooperative, comfortable and no acute distress Orie ntation/consciousness: patient oriented x3 Resp: Effort & Inspection: normal respiratory effort Auscultation: clear to auscultation bilaterally Cardio: Rate: regular rate GI: Inspection: non-distended GI Palp: No abdominal tenderness and Yes Soft to palpation Auscultation: normal bowel sounds : Other: fundus firm Skin: General skin exam: normal color Neuro: General: patient oriented x3 Extrem: General: normal to inspection Psych: Appearance: grossly normal Affect: normal affect Attitude: medication coordinator perative
[2022-02-13 20:15] VITALS: BP 95/61; PULSE 68; RESP 16; TEMP 36.6; O2SAT 97
[2022-02-14] MEDS: ACETAMINOPHEN 325 MG TABLET 650 MG PO (03:42)
[2022-02-14 07:40] VITALS: BP 99/51; PULSE 71; RESP 16; TEMP 36.2; O2SAT 99
[2022-02-14] MEDS: LEVOTHYROXINE SODIUM 150 MCG TABLET PO (08:27)
[2022-02-14] MEDS: IBUPROFEN 600 MG TABLET PO (08:27)
[2022-02-14] MEDS: MULTIVIT/MIN/PREN/FOL AC/IRON TABLET 1 TAB PO (08:28)
[2022-02-14] MEDS: DOCUSATE SODIUM 100 MG CAPSULE PO (11:07)
--- NOTE | 2022-02-15 09:41 | PM.OBDSVD ---
DS: Admitting Diagnosis Discharge Date 02/14/22 Admitting Diagnosis Elective induction of labor DS: Discharge Diagnosis Discharge Diagnosis (1) Normal vaginal delivery of third : Code(s): O80 - Encounter for full-term uncomplicated delivery Status: Acute OB - DS: Summary OB Procedures : Ultrasound OB Procedures Intrapartum: Spontaneous Vag Delivery OB Procedures: : None Peripartum Data Infant Delivery Method: Natural Vaginal Laceration Description: Periurethral complications: none 1: Gender: Male Disposition of : home Status at Discharge Functional status at discharge: independent ambulation Overall status at discharge: patient is back to baseline Time Spent with Patient Time attestation: Total time spent providing and/or coordinating discharge services: Time spent: Less than 30 minutes Exam Const: General: cooperative, healthy appearing, comfortable and no acute distress Orientation/consciousness: patient oriented x3 Resp: Effort & Inspection: normal respiratory effort Auscultation: clear to auscultation bilaterally Cardio: Rate: regular rate GI: Inspection: non-distended GI Palp: No abdominal tenderness and Yes Soft to palpation Auscultation: normal bowel sounds : Other: fundus firm Skin: General skin exam: normal color Neuro: General: patient oriented x3 Extrem: General: normal to inspection Psych: Appearance: grossly normal Affect: normal affect Attitude: cooperative Discharge Plan Discharge Attending physician on discharge: Nisha Salinas Discharging Clinician: Nisha Salinas Anticipated Discharge Date/Time: 02/14/22 10:00 Patient Disposition: Home, Self-Care Activity: pelvic rest Diet: regular Discharge Instructions: Education: Mom and Baby Guide Given to: Mother Follow-Up: Call your delivering provider's office for an appointment to be seen in: 4 Weeks Mom and baby should come to the [facility] for the follow-up appointment. Appointment Date/Time: February 15, 2022 at 11:00 am What to expect at your follow-up visit: Physical Assessment Call [phone] if you are unable to keep your appointment time. BREAST CARE: * Wear a snug supportive bra. * For engorgement discomfort: Breast Feeding: * Apply warm moist washcloths * Express milk as needed to relieve engorgement * Wear loose clothing * For sore nipples: * Identify correct latch-on * Apply warm moist washcloths before and after nursing * Air dry nipples after nursing * May apply Lansinoh cream to nipples PERINEAL CARE: * Until bleeding stops, use your marivel bottle after urinating * Change your pad frequently throughout the day * You may take sitz baths several times a day (fill your bathtub with warm water and soak for 20 minutes.) Do NOT bathe in the water * No tub baths until seen by your physician - You may shower ACTIVITY: * Rest as much as possible. * Do not exercise or lift anything heavier than your baby (such as laundry or other children.) * Avoid stairs or driving as much as possible. * Do not put anything into the vagina. No douching, tampons, or sexual activity until seen by physician. NOTIFY PHYSICIAN IF YOU HAVE ANY QUESTIONS OR IF ANY OF THE FOLLOWING SYMPTOMS OCCUR: * If your perineum becomes red, swollen, or more painful than what you have experienced in the hospital. * If your vaginal bleeding becomes foul smelling. * If your vaginal bleeding becomes more heavy than a period or if your bleeding changes from pink to bright red. However, you may pass an occasional walnut-sized clot once or twice for the first week . * If you experience a sharp, shooting pain in you calves. * If you discover a hard, reddened area on your breast or if you experience flu-like symptoms. DIET: * Eat regular, well-balanced meals. * Drink pl
[2022-02-15 11:37] VITALS: BP 112/67; PULSE 98; RESP 20; TEMP 36.7; O2SAT 98
== END 2022-02-14 13:40 | disposition home or self-care (01) | DRG 560 ==
LOC: ANHLDR 05:20 → ANHOB2 14:36
PROVIDERS: Admitting Provider Obstetrics & Gynecology; Visit Provider Obstetrics & Gynecology
DX: O99.284 Endocrine, nutritional and metabolic diseases complicating childbirth (principal); D69.6 Thrombocytopenia, unspecified; Z37.0 Single live birth; Z3A.39 39 weeks gestation of pregnancy; E03.9 Hypothyroidism, unspecified; O99.12 Other diseases of the blood and blood-forming organs and certain disorders involving the immune mechanism complicating childbirth; O71.82 Other specified trauma to perineum and vulva; O75.89 Other specified complications of labor and delivery
CPT/HCPCS: 36415; 85025; 85027; 85055; 86592; 86850; 86900; 86901; A9270; J2590; J2795; J7120

== ENCOUNTER 2022-07-16 16:33 | Outpatient (CLI) | payer OTHER, SELFPAY ==
[2022-07-16 17:28] LABS: Basophils Percent Auto 0.2 % (0.2-1.2); Eosinophils Percent Auto 0.2 % (0-4.4); Hematocrit 41.6 % (37.0-47.0); Hemoglobin 13.8 g/dL (12.0-15.0); Immature Granulocyte Absolute 0.02 K/mm3 (0.00-0.031); Immature Granulocyte Percent A 0.2 % (0-0.5); Lymphocytes Absolute Auto 0.87 K/mm3 (0.9-3.2); Lymphocytes Percent Auto 10.7 % (18.3-44.2); Mean Corpuscular HGB Conc 33.2 g/dl (32-36); Mean Corpuscular Hemoglobin 29.7 pg (26-34); Mean Corpuscular Volume 89.7 fl (80-100); Mean Platelet Volume 11.2 fl (7.4-10.4); Monocytes Absolute Auto 0.2 K/mm3 (0.1-0.6); Monocytes Percent Auto 2.6 % (2.6-8.5); Neutrophils Percent Auto 86.1 % (45.5-73.1); Platelet Count Result 193 k/mm3 (150-375); Red Blood Count 4.64 M/mm3 (4.2-5.4); Red Cell Distribution Width 13.2 % (11.5-14.5); White Blood Count 8.1 K/mm3 (4.5-10.0)
[2022-07-16 17:41] LABS: Alanine Aminotransferase 27 U/L (6-35); Albumin Level 4.6 g/dL (3.5-5.1); Alkaline Phosphatase 54 U/L (38-126); Anion Gap 8 mmol/L (8-16); Aspartate Amino Transferase 23 U/L (14-36); Bilirubin,Total 0.5 mg/dL (0.2-1.3); Blood Urea Nitrogen 18 mg/dL (7-17); Calcium 8.8 mg/dL (8.4-10.2); Carbon Dioxide 28 mmol/L (22-30); Chloride 101 mmol/L (98-107); Cholesterol 194 mg/dL (0-200); Estimated Glomerular Filt Rate > 60; Glucose 115 mg/dL (65-110); HDL Direct 60 mg/dL; Potassium 4.1 mmol/L (3.4-5.0); Sodium 137 mmol/L (137-145); Triglycerides 91 mg/dL (<150)
[2022-07-16 17:53] LABS: LDL Cholesterol Direct 99 mg/dL
[2022-07-16 17:56] LABS: Beta HCG Quantitative < 2.39 mIU/ML
[2022-07-16 18:10] LABS: Free T4 Free Thyroxine 1.29 ng/mL (0.78-2.19); Hemoglobin A1C 5.4 % (<5.7); Vitamin D 25 Hydroxy 40.3 ng/mL
[2022-07-19 02:59] LABS: Thyroid Peroxidase Antibodies 1551 IU/mL (<9)
[2022-07-22 11:28] LABS: Gliadin AB, IgG <1.0 U/mL (<15.0); TTG IGA AB <1.0 U/mL (<15.0)
== END 2022-07-16 16:34 | disposition home or self-care (01) ==
PROVIDERS: Visit Provider Obstetrics & Gynecology
DX: N92.6 Irregular menstruation, unspecified (principal); E03.9 Hypothyroidism, unspecified; Z13.9 Encounter for screening, unspecified; T78.1XXA Other adverse food reactions, not elsewhere classified, initial encounter
CPT/HCPCS: 36415; 80053; 80061; 82306; 83036; 84439; 84443; 84702; 85025; 86003; 86255; 86364; 86376

== ENCOUNTER 2022-11-28 15:50 | Emergency (ER) | payer OTHER, SELFPAY ==
[2022-11-28 15:59] VITALS: BP 110/68; PULSE 79; RESP 18; TEMP 36.6; O2SAT 98
--- NOTE | 2022-11-28 16:05 | ED.FEMALEGU ---
HPI - Female Genitourinary General Chief complaint: Urogenital-Female Stated complaint: Female Urogenital Source: patient and RN notes reviewed Mode of arrival: ambulatory Limitations: no limitations History of Present Illness HPI Narrative: 27-year-old female presenting for concern for yeast infection. Endorses vaginal itching, white discharge and burning with urination. Also reports occasional saw our odor. She has recently changed feminine products. LMP ended about a week ago, but she reports spotting. Denies concern for STD or new sexual partner. She denies hematuria, dysuria, frequency or urgency, nausea vomiting diarrhea, fevers or chills. Related Data Allergies Allergy/AdvReac Type Severity Reaction Status Date / Time cefdinir Allergy Severe Hives / Verified 11/28/22 16:10 Red Face Review of Systems Review of Systems: CONSTITUTIONAL: Denies body aches, fever, chills, or sweats. CARDIOVASCULAR: Denies chest pain, palpitations, or edema. RESPIRATORY: Denies cough or dyspnea. GASTROINTESTINAL: Denies abdominal pain, nausea, vomiting, or diarrhea. GENITOURINARY: Reports vaginal itching denies dysuria, frequency, urgency, hematuria, flank pain SKIN: Denies rash, itching, or wounds. MUSCULOSKELETAL: Denies back pain or myalgia. [facility] Past Medical History Medical History Encounter for insertion of intrauterine contraceptive device 06/16/2018 Encounter for removal of intrauterine contraceptive device 10/22/2018 Encounter for screening examination for sexually transmitted disease History of hypothyroidism Family History Family History Other Arthritis Social History Social History Smoking status: Never smoker Second hand tobacco smoke exposure: No Alcohol intake: never Substance use: never Lack of Transportation: No Lack of Food: Never True Current Housing: I Have Housing Concerned About Future Housing: No Difficulty Paying Gas/Electric Bills: No Difficulty Paying for Meds: No Currently Unemployed: No Education: High School Diploma/GED Difficulty w/ Childcare or Family Care: No Living arrangements: with family Occupation/Education: unemployed Gender identity (if verbalized by the patient): Female Sexual Orientation (if Verbalized by the Patient): Straight or Heterosexual Comments At time of signature, I have reviewed and agree with nursing past medical, surgical, social and family history unless otherwise noted. Please see nursing chart for further information. There is no relevant family history pertinent to the presenting complaint Exam Narrative: GENERAL: Well-appearing and in no acute distress. ENT: Mucous membranes pink and moist. NECK: Normal AROM. Supple. CHEST: No respiratory distress. Clear to auscultation. HEART: Regular rate and rhythm. ABDOMEN: Soft, nontender, nondistended, normal active bowel sounds. No CVA tenderness MUSCULOSKELETAL: No bony tenderness. SKIN: Warm, dry, no rash. NEURO: No focal deficits. Alert and oriented x3. Gait steady. PSYCH: Normal affect. Course Course Emergency Course: Patient is aware of diagnosis, understands and agrees to treatment plan. Anticipatory guidance given. Patient agrees to follow-up as directed and is aware of reasons to seek care at the emergency department. Portions of this record may have been created with voice recognition software Level of Care: Express Care Visit Vital Signs Vital signs: Vital Signs Temperature 97.8 F 11/28/22 15:59 Pulse Rate 79 11/28/22 15:59 Respiratory Rate 18 11/28/22 15:59 Blood Pressure 110/68 11/28/22 15:59 Pulse Oximetry 98 11/28/22 15:59 Oxygen Delivery Room Air 11/28/22 15:59 Temperature 97.8 F 11/28/22 15:59 Pulse Rate 79 11/28/22 15:59 Respirato
== END 2022-11-28 16:40 | disposition home or self-care (01) ==
PROVIDERS: Emergency Provider Nurse Practitioner Family; PCP Nurse Practitioner Family
DX: N76.0 Acute vaginitis (principal); E03.9 Hypothyroidism, unspecified
CPT/HCPCS: 81003; 87086; 87088; 87147; 99213; G0463

== ENCOUNTER 2022-12-04 16:03 | Outpatient (CLI) | payer OTHER, SELFPAY ==
--- NOTE | ~2022-12-04 | CT_ITS ---
EXAMINATION: CT sinus wo con DATE: 12/04/2022 16:23 INDICATION: Sinusitis TECHNIQUE: Computed tomography (CT) of the paranasal sinuses was performed without intravenous contra st. The dose-length product was 339.79 mGy-cm. COMPARISON: None FINDINGS: There is mild mucosal thickening of the left maxillary sinus. No air-fluid levels. No signi ficant mucosal thickening otherwise. No mucoperiosteal reaction. Ostiomeatal units are patent. IMPRESSION: 1. Mild left maxillary sinusitis. Reviewed, dictated and finalized at location L.
== END 2022-12-04 16:04 | disposition home or self-care (01) ==
PROVIDERS: PCP Nurse Practitioner Family; Visit Provider Otolaryngology
DX: J32.4 Chronic pansinusitis (principal); J01.00 Acute maxillary sinusitis, unspecified
CPT/HCPCS: 70486

== ENCOUNTER 2022-12-06 12:02 | Outpatient (CLI) | payer OTHER, SELFPAY | END 2022-12-06 12:03 | disposition home or self-care (01) | LOC: ANHLAB 12:04 | PROVIDERS: PCP Nurse Practitioner Family; Visit Provider Student in an Organized Health Care Education/Training Program | DX: R10.2 Pelvic and perineal pain (principal) | CPT/HCPCS: 87086; 87088; 87147 ==

== ENCOUNTER 2023-02-19 16:46 | Outpatient (CLI) | payer OTHER, SELFPAY ==
[2023-02-19 19:11] LABS: Hepatitis B Surface Antigen Negative (Negative)
[2023-02-19 19:16] LABS: HAV RESULT Negative (Negative); Hepatitis B Core IgM Result Negative (Negative)
[2023-02-19 19:28] LABS: Hepatitis C Virus Antibody Negative (Negative)
[2023-02-20 14:27] LABS: Rapid Plasma Reagin Non-Reactive (NonReactive)
[2023-02-21 11:32] LABS: HIV 1 2 Ag Ab 4th Gen w Rflxs Nonreactive (Nonreactive)
== END 2023-02-19 16:47 | disposition home or self-care (01) ==
LOC: ANHLAB 16:47
PROVIDERS: PCP Nurse Practitioner Family; Visit Provider Student in an Organized Health Care Education/Training Program
DX: Z11.3 Encounter for screening for infections with a predominantly sexual mode of transmission (principal)
CPT/HCPCS: 36415; 80074; 86592; 86695; 86696; 87389

== ENCOUNTER 2023-02-20 16:48 | Emergency (ER) | payer OTHER, SELFPAY ==
--- NOTE | 2023-02-20 16:56 | ED.URI ---
HPI - URI/Sore Throat General Chief Complaint: Upper Respiratory Infection Stated Complaint: SORE THROAT/STOMACH Time Seen by Provider: 02/20/23 17:00 History of Present Illness HPI Narrative: 27 y/o female presented for c/o sore throat since yesterday, and lower abdominal pain for one week. Reports painful swallow, stating it makes her feel nauseated. Pt was seen by OBgyn today regarding low abdominal pain, std testing was performed, awaiting results. States strep is going around her son's class. Denies cough, sob, wheezing, fever. Related Data Home Medications Medication Instructions Recorded Confirmed levothyroxine 125 mcg tablet 125 mcg PO DAILY 01/06/23 02/20/23 Allergies Allergy/AdvReac Type Severity Reaction Status Date / Time cefdinir Allergy Severe Hives / Verified 02/20/23 16:55 Red Face cephalexin Allergy Intermediate Itching Verified 02/20/23 16:55 Penicillins Allergy Intermediate Nausea Verified 02/20/23 16:55 Review of Systems Review of Systems: CONSTITUTIONAL: Denies body aches, fever, chills, or sweats. EYES: Denies visual changes, redness, or discharge. ENT: reports sore throat Denies rhinorrhea, congestion, or otalgia. CARDIOVASCULAR: Denies chest pain, palpitations, or edema. RESPIRATORY: Denies dyspnea. GASTROINTESTINAL: Reports abdominal pain, nausea, Denies vomiting, or diarrhea. SKIN: Denies rash, itching, or wounds. MUSCULOSKELETAL: Denies back pain, joint pain, or myalgia. NEUROLOGIC: Denies headache PMFSH Past Medical History Medical History Encounter for insertion of intrauterine contraceptive device 06/16/2018 Encounter for removal of intrauterine contraceptive device 10/22/2018 Encounter for screening examination for sexually transmitted disease History of hypothyroidism Vaginal discharge Family History Family History Other Arthritis Social History Social History Smoking status: Never smoker Second hand tobacco smoke exposure: No Alcohol intake: never Substance use: never Lack of Transportation: No Lack of Food: Never True Current Housing: I Have Housing Concerned About Future Housing: No Difficulty Paying Gas/Electric Bills: No Difficulty Paying for Meds: No Currently Unemployed: No Education: High School Diploma/GED Difficulty w/ Childcare or Family Care: No Living arrangements: with family Occupation/Education: unemployed Gender identity (if verbalized by the patient): Female Sexual Orientation (if Verbalized by the Patient): Straight or Heterosexual Exam Narrative: GENERAL: mildly Ill-appearing, no acute distress. EYES: conjunctivae clear ENT: Mucous membranes moist. TMs pearly piña with normal light reflex bilaterally; no tragal tenderness. Oropharynx severely erythematous Tonsils enlarged and without exudate. No drooling, no hoarseness, no trismus, uvula midline. No tripod positioning, hot potato voice, or soft palate swelling. NECK: Supple. No lymphadenopathy CHEST: Clear to auscultation, breath sounds equal. No respiratory distress, speaks in full sentences. ABD: soft flat nontender HEART: Regular rate and rhythm. No murmur heard. SKIN: Warm, dry, no rash. NEURO: Alert and oriented x3. Course Course Emergency Course: Patient is aware of diagnosis, understands and agrees to treatment plan. Anticipatory guidance given. Patient agrees to follow-up as directed and is aware of reasons to seek care at the emergency department. Portions of this record may have been created with voice recognition software Level of Care: Express Care Visit MDM - URI/Sore Throat MDM Narrative Medical decision making narrative: POS strep result reviewed with pt. PCN allergy Advise supportive treatments and s/s to go to the ER. Patient is appropriate for outpati
[2023-02-20 17:03] VITALS: BP 118/74; PULSE 89; RESP 16; TEMP 37.1; O2SAT 99
== END 2023-02-20 17:18 | disposition home or self-care (01) ==
PROVIDERS: Emergency Provider Nurse Practitioner Family
DX: J02.0 Streptococcal pharyngitis (principal); E03.9 Hypothyroidism, unspecified
CPT/HCPCS: 87880; 99213; G0463

== ENCOUNTER 2023-03-03 11:59 | Emergency (ER) | payer OTHER, SELFPAY ==
[2023-03-03 12:11] VITALS: BP 99/61; PULSE 88; RESP 18; TEMP 36.6; O2SAT 97
--- NOTE | 2023-03-03 12:24 | ED.SKABFB ---
HPI - Skin/Abscess/Foreign Bdy General Chief complaint: Skin/Abscess/Foreign Body Stated complaint: RASH S/P + STREP Time Seen by Provider: 03/03/23 12:11 Source: patient, RN notes reviewed and old records reviewed Mode of arrival: ambulatory Limitations: no limitations History of Present Illness HPI narrative: Patient presents today complaining of a pruritic rash to the face, neck, hands that started 2 days ago. She has been applying topical castor oil with some improvement. Patient was started on clindamycin 10 days ago for strep throat and took her last dose yesterday at 3:00 p.m. she denies shortness of breath, difficulty swallowing, swelling in her mouth her tongue. Related Data Home Medications Medication Instructions Recorded Confirmed levothyroxine 125 mcg tablet 125 mcg PO DAILY 01/06/23 03/03/23 Allergies Allergy/AdvReac Type Severity Reaction Status Date / Time cefdinir Allergy Severe Hives / Verified 03/03/23 12:12 Red Face cephalexin Allergy Intermediate Itching Verified 03/03/23 12:12 Penicillins Allergy Intermediate Nausea Verified 03/03/23 12:12 clindamycin Allergy Rash Verified 03/03/23 12:24 Review of Systems Review of Systems: CONSTITUTIONAL: Denies body aches, fever, chills, or sweats. EYES: Denies visual changes, redness, or discharge. ENT: Denies rhinorrhea, congestion, sore throat, or otalgia. CARDIOVASCULAR: Denies chest pain, palpitations, or edema. RESPIRATORY: Denies cough or dyspnea. GASTROINTESTINAL: Denies abdominal pain, nausea, vomiting, or diarrhea. GENITOURINARY: Denies dysuria or hematuria. SKIN: + pruritic rash MUSCULOSKELETAL: Denies back pain, joint pain, or myalgia. NEUROLOGIC: Denies headache, numbness, tingling, or weakness. PSYCH: Denies depression or anxiety. [facility] Past Medical History Medical History Encounter for insertion of intrauterine contraceptive device 06/16/2018 Encounter for removal of intrauterine contraceptive device 10/22/2018 Encounter for screening examination for sexually transmitted disease History of hypothyroidism Vaginal discharge Family History Family History Other Arthritis Social History Social History Smoking status: Never smoker Second hand tobacco smoke exposure: No Alcohol intake: never Substance use: never Lack of Transportation: No Lack of Food: Never True Current Housing: I Have Housing Concerned About Future Housing: No Difficulty Paying Gas/Electric Bills: No Difficulty Paying for Meds: No Currently Unemployed: No Education: High School Diploma/GED Difficulty w/ Childcare or Family Care: No Living arrangements: with family Occupation/Education: unemployed Gender identity (if verbalized by the patient): Female Sexual Orientation (if Verbalized by the Patient): Straight or Heterosexual Comments At time of signature, I have reviewed and agree with nursing past medical, surgical, social and family history unless otherwise noted. Please see nursing chart for further information. There is no relevant family history pertinent to the presenting complaint Exam Narrative: GENERAL: Well-appearing, well-nourished, and in no acute distress. HEAD: Normocephalic, atraumatic. EYES: EOMI. No redness or drainage. Conjunctivae normal. ENT: Mucous membranes pink and moist. Nares clear. No rhinorrhea. Throat normal. Uvula midline. No swelling of the face NECK: Normal AROM. CHEST: No respiratory distress. Clear to auscultation. HEART: Regular rate and rhythm. No murmur appreciated. EXTREMITIES: Normal range of motion. No edema. SKIN: Warm, dry. Capillary refill normal. Normal skin turgor. Erythematous papular rash to the face, neck, chest, and dorsums of the hands. NEURO: No focal deficits. Alert and oriented x3
== END 2023-03-03 12:27 | disposition home or self-care (01) ==
PROVIDERS: Emergency Provider Nurse Practitioner
DX: L27.0 Generalized skin eruption due to drugs and medicaments taken internally (principal); T36.8X5A Adverse effect of other systemic antibiotics, initial encounter; E03.9 Hypothyroidism, unspecified; Z79.899 Other long term (current) drug therapy
CPT/HCPCS: 99211; G0463

== ENCOUNTER 2023-04-24 13:36 | Outpatient (CLI) | payer OTHER, SELFPAY ==
[2023-04-24 17:42] LABS: Hepatitis B Surface Antigen Negative (Negative)
[2023-04-24 17:48] LABS: HAV RESULT Negative (Negative); Hepatitis B Core IgM Result Negative (Negative)
[2023-04-24 17:51] LABS: HIV 1/2 Ab P24 Ag Result Negative (Negative)
[2023-04-24 18:00] LABS: Hepatitis C Virus Antibody Negative (Negative)
[2023-04-25 10:59] LABS: Rapid Plasma Reagin Non-Reactive (NonReactive)
== END 2023-04-24 13:37 | disposition home or self-care (01) ==
LOC: ANHLAB 13:38
PROVIDERS: Visit Provider Student in an Organized Health Care Education/Training Program
DX: Z11.3 Encounter for screening for infections with a predominantly sexual mode of transmission (principal)
CPT/HCPCS: 36415; 80074; 86592; 86695; 86696; 86703; G0432

== ENCOUNTER 2023-04-26 11:08 | Emergency (ER) | payer OTHER, SELFPAY ==
[2023-04-26 11:20] VITALS: BP 111/70; PULSE 117; RESP 16; TEMP 36.8; O2SAT 100
--- NOTE | 2023-04-26 11:41 | ED.URI ---
HPI - URI/Sore Throat General Chief Complaint: Upper Respiratory Infection Stated Complaint: SOB/RUNNY NOSE/COUGH/CONGESTIONFLU EXPOSURE Time Seen by Provider: 04/26/23 11:35 Source: patient and RN notes reviewed Mode of arrival: ambulatory Limitations: no limitations History of Present Illness HPI Narrative: Patient presents today complaining of cough, body aches, congestion, rhinorrhea since yesterday. She also reports some shortness of breath symptoms when she is out in the cold. Denies known fever. Child is home with influenza A. She has been taking Tylenol cold and flu with some relief. Related Data Home Medications Medication Instructions Recorded Confirmed levothyroxine 125 mcg tablet 125 mcg PO DAILY 01/06/23 04/26/23 Allergies Allergy/AdvReac Type Severity Reaction Status Date / Time cefdinir Allergy Severe Hives / Verified 04/26/23 11:16 Red Face cephalexin Allergy Intermediate Itching Verified 04/26/23 11:16 Penicillins Allergy Intermediate Nausea Verified 04/26/23 11:16 clindamycin Allergy Rash Verified 04/26/23 11:16 Review of Systems Review of Systems: CONSTITUTIONAL: Denies fever, chills, or sweats.+ body aches EYES: Denies visual changes, redness, or discharge. ENT: Denies sore throat, or otalgia.+ congestion, rhinorrhea CARDIOVASCULAR: Denies chest pain, palpitations, or edema. RESPIRATORY: + cough, shortness of breath GASTROINTESTINAL: Denies abdominal pain, nausea, vomiting, or diarrhea. GENITOURINARY: Denies dysuria or hematuria. SKIN: Denies rash, itching, or wounds. MUSCULOSKELETAL: Denies back pain, joint pain, or myalgia. NEUROLOGIC: Denies headache, numbness, tingling, or weakness. PSYCH: Denies depression or anxiety. [facility] Past Medical History Medical History Encounter for insertion of intrauterine contraceptive device 06/16/2018 Encounter for removal of intrauterine contraceptive device 10/22/2018 Encounter for screening examination for sexually transmitted disease History of hypothyroidism Vaginal discharge Family History Family History Other Arthritis Social History Social History Smoking status: Never smoker Second hand tobacco smoke exposure: No Alcohol intake: never Substance use: never Lack of Transportation: No Lack of Food: Never True Current Housing: I Have Housing Concerned About Future Housing: No Difficulty Paying Gas/Electric Bills: No Difficulty Paying for Meds: No Currently Unemployed: No Education: High School Diploma/GED Difficulty w/ Childcare or Family Care: No Living arrangements: with family Occupation/Education: unemployed Gender identity (if verbalized by the patient): Female Sexual Orientation (if Verbalized by the Patient): Straight or Heterosexual Comments At time of signature, I have reviewed and agree with nursing past medical, surgical, social and family history unless otherwise noted. Please see nursing chart for further information. There is no relevant family history pertinent to the presenting complaint Exam Narrative: GENERAL: Mildly ill-appearing, well-nourished, and in no acute distress. HEAD: Normocephalic, atraumatic. EYES: EOMI. No redness or drainage. Conjunctivae normal. ENT: Mucous membranes pink and moist. Nares clear. No rhinorrhea. TMs normal bilaterally. Throat normal. Uvula midline. NECK: Normal AROM. Supple. No lymphadenopathy. CHEST: No respiratory distress. Clear to auscultation. HEART: Regular rate and rhythm. No murmur appreciated. EXTREMITIES: Normal range of motion. No edema. SKIN: Warm, dry, no rash. Capillary refill normal. Normal skin turgor. NEURO: No focal deficits. Alert and oriented x3. Gait steady. PSYCH: Normal affect. No signs of depression or anxiety. Course C
== END 2023-04-26 11:55 | disposition home or self-care (01) ==
PROVIDERS: Emergency Provider Nurse Practitioner
DX: J10.1 Influenza due to other identified influenza virus with other respiratory manifestations (principal); Z20.822 Contact with and (suspected) exposure to COVID-19; E03.9 Hypothyroidism, unspecified
CPT/HCPCS: 87426; 87804; 99213; G0463

== ENCOUNTER 2023-04-29 10:41 | Emergency (ER) | payer OTHER, SELFPAY ==
[2023-04-29 10:47] VITALS: BP 102/73; PULSE 93; RESP 16; TEMP 36.6; O2SAT 99
--- NOTE | 2023-04-29 10:53 | ED.URI ---
HPI - URI/Sore Throat General Chief Complaint: Upper Respiratory Infection Stated Complaint: Eye probelms;Sore throat;Ear pain Time Seen by Provider: 04/29/23 10:48 Source: patient Mode of arrival: ambulatory Limitations: no limitations History of Present Illness HPI Narrative: Millicent is a 27-year-old female patient presenting to the clinic today with complaints left eye drainage, sore throat, cough,ear pain, and sinus pressure. She reports she is blowing out some brown nasal discharge. Denies any fever or chills. MD elicited complaint: sore throat and nasal congestion Related Data Home Medications Medication Instructions Recorded Confirmed levothyroxine 125 mcg tablet 125 mcg PO DAILY 01/06/23 04/26/23 Allergies Allergy/AdvReac Type Severity Reaction Status Date / Time cefdinir Allergy Severe Hives / Verified 04/29/23 10:53 Red Face cephalexin Allergy Intermediate Itching Verified 04/29/23 10:53 Penicillins Allergy Intermediate Nausea Verified 04/29/23 10:53 clindamycin Allergy Rash Verified 04/29/23 10:53 Review of Systems Review of Systems: Pertinent positives per HPI. Patient denies any fever, chills, rash, headache, visual changes, dizziness, shortness of breath, chest pain, palpitations, nausea, vomiting, diarrhea, constipation, abdominal pain, or any urinary issues. [facility] Past Medical History Medical History Encounter for insertion of intrauterine contraceptive device 06/16/2018 Encounter for removal of intrauterine contraceptive device 10/22/2018 Encounter for screening examination for sexually transmitted disease History of hypothyroidism Vaginal discharge Family History Family History Other Arthritis Social History Social History Smoking status: Never smoker Second hand tobacco smoke exposure: No Alcohol intake: never Substance use: never Lack of Transportation: No Lack of Food: Never True Current Housing: I Have Housing Concerned About Future Housing: No Difficulty Paying Gas/Electric Bills: No Difficulty Paying for Meds: No Currently Unemployed: No Education: High School Diploma/GED Difficulty w/ Childcare or Family Care: No Living arrangements: with family Occupation/Education: unemployed Gender identity (if verbalized by the patient): Female Sexual Orientation (if Verbalized by the Patient): Straight or Heterosexual Comments At the time of my signature, I reviewed and agree with the nursing past medical, surgical, social, and family history. There is no relevant family history pertinent to the patient complaint. Exam Narrative: General: Well-developed, well nourished, in no apparent distress Head: Normocephalic, atraumatic Eyes: Pupils equally round and reactive to light bilaterally, EOM intact, sclera and conjunctive clear, no discharge, lids normal Ears: TMs intact and congested, ear canals clear, no drainage, grossly hearing normal. Nose: Nares patent, brown nasal discharge, moderate inflammation, ethmoid, maxillary, and frontal sinus tenderness. Mouth: Oral pharynx without lesions or masses, good dentition, MMM. Postnasal drip Neck: Supple, trachea midline, no enlargement of anterior or posterior cervical nodes, no thyroid masses or goiter palpable. Cardio: Regular rate and rhythm, s1 and s2 normal, no murmur appreciated. Resp: Clear to auscultation bilaterally, no rhonchi, rales, wheezing or rubs Course Course Emergency Course: Portions of this record may have been created with voice recognition software. Level of Care: Express Care Visit Vital Signs Vital signs: Vital Signs Temperature 36.6 C 04/29/23 10:47 Pulse Rate 93 04/29/23 10:47 Respiratory Rate 16 04/29/23 10:47 Blood Pressure 102/73 04/29/23 10:47 Pulse Oximetry
== END 2023-04-29 11:00 | disposition home or self-care (01) ==
PROVIDERS: Emergency Provider Nurse Practitioner Family
DX: J01.90 Acute sinusitis, unspecified (principal); H10.32 Unspecified acute conjunctivitis, left eye; E03.9 Hypothyroidism, unspecified
CPT/HCPCS: 99213; G0463

== ENCOUNTER 2023-05-11 12:34 | Emergency (ER) | payer OTHER, SELFPAY ==
--- NOTE | 2023-05-11 12:40 | ED.URI ---
HPI - URI/Sore Throat General Chief Complaint: Upper Respiratory Infection Stated Complaint: SORE THROAT/HEADACHE/SINUS Time Seen by Provider: 05/11/23 13:12 Source: patient and RN notes reviewed Mode of arrival: ambulatory Limitations: no limitations History of Present Illness HPI Narrative: 27-year-old female presents concern for sore throat, headache, sinus congestion. She reports symptoms started in Thanksgiving. Reports since then she has been on 2 rounds of antibiotics and steroids. She reports she has an appointment with a new primary doctor in 2 weeks. She reports she has been taking Mucinex cold medicine without relief. She denies fever. MD elicited complaint: sore throat and nasal congestion Related Data Home Medications Medication Instructions Recorded Confirmed levothyroxine 125 mcg tablet 125 mcg PO DAILY 01/06/23 05/11/23 Allergies Allergy/AdvReac Type Severity Reaction Status Date / Time cefdinir Allergy Severe Hives / Verified 05/11/23 12:50 Red Face cephalexin Allergy Intermediate Itching Verified 05/11/23 12:50 Penicillins Allergy Intermediate Nausea Verified 05/11/23 12:50 clindamycin Allergy Rash Verified 05/11/23 12:50 Review of Systems Review of Systems: CONSTITUTIONAL: Denies malaise, chills, sweats, or fever. EYES: Denies visual changes, redness, or discharge. ENT: Reports rhinorrhea, congestion, and sore throat. CARDIOVASCULAR: Denies chest pain, palpitations, or edema. RESPIRATORY: Denies cough. Denies dyspnea. GASTROINTESTINAL: Denies abdominal pain, nausea, vomiting, diarrhea SKIN: Denies rash or itching. MUSCULOSKELETAL: Denies myalgia. NEUROLOGIC: Reports headache. All systems reviewed & are unremarkable except as noted in HPI and below PMFSH Past Medical History Medical History Encounter for insertion of intrauterine contraceptive device 06/16/2018 Encounter for removal of intrauterine contraceptive device 10/22/2018 Encounter for screening examination for sexually transmitted disease History of hypothyroidism Vaginal discharge Family History Family History Other Arthritis Social History Social History Smoking status: Never smoker Second hand tobacco smoke exposure: No Alcohol intake: never Substance use: never Lack of Transportation: No Lack of Food: Never True Current Housing: I Have Housing Concerned About Future Housing: No Difficulty Paying Gas/Electric Bills: No Difficulty Paying for Meds: No Currently Unemployed: No Education: High School Diploma/GED Difficulty w/ Childcare or Family Care: No Living arrangements: with family Occupation/Education: unemployed Gender identity (if verbalized by the patient): Female Sexual Orientation (if Verbalized by the Patient): Straight or Heterosexual Comments At time of signature, agree with nursing past medical, surgical, social and family history. There is no relevant family history pertinent to the presenting complaint Exam Narrative: GENERAL: Well-appearing, well-nourished, and in no acute distress. HEAD: Normocephalic EYES: PERRLA, conjunctivae clear ENT: Nares clear, turbinates edematous and erythematous. Mucous membranes moist. TM pearly piña with sharp light reflex bilaterally; no tragal tenderness. Oropharynx not erythematous without lesions. Tonsils not enlarged and without exudate, no drooling, no hoarseness, no trismus, uvula midline. NECK: Supple. No lymphadenopathy CHEST: Clear to auscultation, breath sounds equal. No wheezing, rhonchi, rales, or stridor. No respiratory distress, speaks in full sentences. HEART: Regular rate and rhythm. No murmur heard. SKIN: Warm, dry, no rash. NEURO: Alert and oriented x3. PSYCH: Normal mood and affect Course Course Emergency Course: Patient
[2023-05-11 13:01] VITALS: BP 99/71; PULSE 81; RESP 16; TEMP 36.8; O2SAT 100
== END 2023-05-11 13:35 | disposition home or self-care (01) ==
PROVIDERS: Emergency Provider Nurse Practitioner
DX: J01.90 Acute sinusitis, unspecified (principal); E03.9 Hypothyroidism, unspecified
CPT/HCPCS: 87081; 87880; 99213; G0463

== ENCOUNTER 2023-05-20 17:36 | Emergency (ER) | payer OTHER, SELFPAY ==
--- NOTE | 2023-05-20 17:46 | ED.URI ---
HPI - URI/Sore Throat General Chief Complaint: Upper Respiratory Infection Stated Complaint: WHITE SPOTS ON THROAT Time Seen by Provider: 05/20/23 17:46 Source: patient Mode of arrival: ambulatory Limitations: no limitations History of Present Illness HPI Narrative: Cecille is a 27-year-old female patient presenting to the clinic today with complaints of white spots on her throat for the past few days. She reports no known fever or chills. Son was positive for strep on May 10 MD elicited complaint: sore throat and nasal congestion Related Data Home Medications Medication Instructions Recorded Confirmed levothyroxine 125 mcg tablet 125 mcg PO DAILY 01/06/23 05/20/23 Allergies Allergy/AdvReac Type Severity Reaction Status Date / Time cefdinir Allergy Severe Hives / Verified 05/20/23 17:50 Red Face cephalexin Allergy Intermediate Itching Verified 05/20/23 17:50 Penicillins Allergy Intermediate Nausea Verified 05/20/23 17:50 clindamycin Allergy Rash Verified 05/20/23 17:50 Review of Systems Review of Systems: Pertinent positives per HPI. Patient denies any fever, chills, rash, headache, visual changes, dizziness, cough, runny nose,shortness of breath, chest pain, palpitations, nausea, vomiting, diarrhea, constipation, abdominal pain, or any urinary issues. [facility] Past Medical History Medical History Encounter for insertion of intrauterine contraceptive device 06/16/2018 Encounter for removal of intrauterine contraceptive device 10/22/2018 Encounter for screening examination for sexually transmitted disease History of hypothyroidism Vaginal discharge Family History Family History Other Arthritis Social History Social History Smoking status: Never smoker Second hand tobacco smoke exposure: No Alcohol intake: never Substance use: never Lack of Transportation: No Lack of Food: Never True Current Housing: I Have Housing Concerned About Future Housing: No Difficulty Paying Gas/Electric Bills: No Difficulty Paying for Meds: No Currently Unemployed: No Education: High School Diploma/GED Difficulty w/ Childcare or Family Care: No Living arrangements: with family Occupation/Education: unemployed Gender identity (if verbalized by the patient): Female Sexual Orientation (if Verbalized by the Patient): Straight or Heterosexual Comments At the time of my signature, I reviewed and agree with the nursing past medical, surgical, social, and family history. There is no relevant family history pertinent to the patient complaint. Exam Narrative: General: Well-developed, well nourished, in no apparent distress Head: Normocephalic, atraumatic Eyes: Pupils equally round and reactive to light bilaterally, EOM intact, sclera and conjunctive clear, no discharge, lids normal Ears: TMs intact and clear, ear canals clear, no drainage, grossly hearing normal. Nose: Nares patent, no discharge, no inflammation, no sinus tenderness. Mouth: Oropharynx red without lesions or masses, good dentition, MMM. Neck: Supple, trachea midline, no enlargement of anterior or posterior cervical nodes, no thyroid masses or goiter palpable. Cardio: Regular rate and rhythm, s1 and s2 normal, no murmur appreciated. Resp: Clear to auscultation bilaterally anteriorly and posteriorly, no rhonchi, rales, wheezing or rubs Course Course Emergency Course: Portions of this record may have been created with voice recognition software. Level of Care: Express Care Visit Vital Signs Vital signs: Vital signs reviewed MDM - URI/Sore Throat MDM Narrative Medical decision making narrative: At the time of visit patient is resting comfortably on the exam table. Patient appears to be nontoxic. Labs: Strep test was negative in t
[2023-05-20 17:51] VITALS: BP 99/81; PULSE 96; RESP 18; TEMP 36.9; O2SAT 100
== END 2023-05-20 18:11 | disposition home or self-care (01) ==
PROVIDERS: Emergency Provider Nurse Practitioner Family; PCP Family Medicine
DX: J02.9 Acute pharyngitis, unspecified (principal); E03.9 Hypothyroidism, unspecified
CPT/HCPCS: 87081; 87880; 99213; G0463

== ENCOUNTER 2023-06-17 11:27 | Outpatient (CLI) | payer OTHER, SELFPAY | END 2023-06-17 11:28 | disposition home or self-care (01) | PROVIDERS: PCP Family Medicine | DX: E03.9 Hypothyroidism, unspecified (principal) | CPT/HCPCS: 36415; 84443 ==

== ENCOUNTER 2023-07-28 11:29 | Emergency (ER) | payer OTHER, SELFPAY ==
[2023-07-28 11:38] VITALS: BP 113/77; PULSE 87; RESP 18; TEMP 36.7; O2SAT 100
--- NOTE | 2023-07-28 11:53 | ED.URI ---
HPI - URI/Sore Throat General Chief Complaint: Upper Respiratory Infection Stated Complaint: Cold Symptoms Time Seen by Provider: 07/28/23 11:53 Source: patient, RN notes reviewed and old records reviewed Mode of arrival: ambulatory Limitations: no limitations History of Present Illness HPI Narrative: 27-year-old female presents to the [facility] with complaints of sinus congestion and a runny nose since yesterday. Patient states that she took 1 Deb D today. Onset (ago): day(s) (1) Related Data Home Medications Medication Instructions Recorded Confirmed levothyroxine 125 mcg tablet 125 mcg PO DAILY 01/06/23 07/21/23 fexofenadine 60 mg tablet (Deb 60 mg PO Q12H 06/27/23 07/21/23 Allergy) Allergies Allergy/AdvReac Type Severity Reaction Status Date / Time cefdinir Allergy Severe Hives / Verified 07/21/23 14:40 Red Face cephalexin Allergy Intermediate Itching Verified 07/21/23 14:40 Penicillins Allergy Intermediate Nausea Verified 07/21/23 14:40 clindamycin Allergy Rash Verified 07/21/23 14:40 Review of Systems Review of Systems: All systems reviewed & are unremarkable except as noted in HPI and below Constitutional: Constitutional: Reports no additional constitutional complaints Eyes: Eyes: Reports no additional eye complaints ENT: Reports as per HPI, Reports nasal congestion and Reports nasal discharge Cardiovascular: Cardiovascular: Reports no additional cardiovascular complaints, Denies chest pain and Denies dyspnea Respiratory: Respiratory: Reports no additional respiratory complaints, Denies chest congestion, Denies cough and Denies dyspnea Gastrointestinal: Gastrointestinal: Reports no additional gastrointestinal complaints, Denies abdominal pain, Denies nausea and Denies vomiting Musculoskeletal: Musculoskeletal: Reports no additional musculoskeletal complaints Integumentary/Breasts: Skin/Breast: Reports system reviewed and no additional complaints, except as docu Neurologic: Reports system reviewed and no additional complaints, except as documented Psychiatric: Psychiatric: Reports no additional psychiatric complaints Allergic/Immunologic: Allergic/Immunologic: Reports no additional allergic/immunologic complaints PMFSH Past Medical History Medical History Encounter for insertion of intrauterine contraceptive device 06/16/2018 Encounter for removal of intrauterine contraceptive device 10/22/2018 Encounter for screening examination for sexually transmitted disease History of hypothyroidism Vaginal discharge Family History Family History Other Arthritis Social History Social History Smoking status: Never smoker Second hand tobacco smoke exposure: No Alcohol intake: never Substance use: never Lack of Transportation: No Lack of Food: Never True Current Housing: I Have Housing Concerned About Future Housing: No Difficulty Paying Gas/Electric Bills: No Difficulty Paying for Meds: No Currently Unemployed: No Education: High School Diploma/GED Difficulty w/ Childcare or Family Care: No Living arrangements: with family Occupation/Education: unemployed Gender identity (if verbalized by the patient): Female Sexual Orientation (if Verbalized by the Patient): Straight or Heterosexual Comments At the time of my signature, I reviewed and agree with the nursing past medical, surgical, social, and family history. There is no relevant family history pertinent to the patient complaint. Exam Const: General: cooperative, healthy appearing, comfortable, no acute distress, well developed, alert and well nourished Nutritional Appearance: well nourished Orientation/consciousness: patient oriented x3 Limitations: no limitations HENMT: Head: normal to inspection Ears: hearing grossly normal bilate
== END 2023-07-28 12:33 | disposition home or self-care (01) ==
PROVIDERS: Emergency Provider Nurse Practitioner
DX: J06.9 Acute upper respiratory infection, unspecified (principal); J34.89 Other specified disorders of nose and nasal sinuses; Z20.822 Contact with and (suspected) exposure to COVID-19; E03.9 Hypothyroidism, unspecified
CPT/HCPCS: 87426; 87804; 99213; G0463

== ENCOUNTER 2023-09-24 00:25 | Emergency (ER) | payer OTHER, SELFPAY ==
--- NOTE | ~2023-09-24 | CT_ITS ---
Non-contrast CT scan of the Abdomen and Pelvis Clinical indication: Left flank pain Technique: 2.5 mm axial scans were obtained through the abdomen and pelvis without intravenous or or al contrast. Dose reduction technique was used on this scan by utilizing automated exposure control a nd iterative reconstruction technique. The dose-length product (DLP) was 329.17 mGy-cm. COMPARISON: 11/26/2019 Findings: Images through the lung bases reveal no abnormalities. There is no evidence of renal or ureteral calculi. The kidneys and the ureters are nondilated. The liver, spleen, pancreas, gallbladder, and adrenals appear normal. There is no aortic aneurysm. There is no evidence of bowel obstruction. Images through the pelvis were performed. There is no evidence of ascites or lymphadenopathy. Urinary bladder unremarkable. Probable 3.5 cm adnexal cyst. Impression: Probable 3.5 cm left ovarian cyst. No other significant findings. Reviewed, dictated and finalized at [facility]. Impression: Probable 3.5 cm left ovarian cyst. No other significant findings.
[2023-09-24 00:34] VITALS: BP 116/80; PULSE 79; RESP 17; TEMP 36.9; O2SAT 100
[2023-09-24 00:44] VITALS: BP 116/80; PULSE 84; RESP 20; O2SAT 100
--- NOTE | 2023-09-24 00:45 | ED.ABDPAIN ---
HPI - Abdominal Pain General Chief Complaint: Abdominal Pain Stated Complaint: abd pain Time Seen by Provider: 09/24/23 00:27 Source: patient Mode of arrival: ambulatory Limitations: no limitations History of Present Illness HPI narrative: This is a 28-year-old female, with history of hypothyroidism, who presents emergency department complaining of abdominal pain for the past day. The patient states yesterday, she with loose stools, myalgias and subjective fevers consistent with viral infection. Today, she felt cramping suprapubic abdominal pain, left flank pain and abdominal fullness, rated 5-6/10. Patient states her symptoms worsened approximately 30 minutes prior to arrival, prompting her evaluation here today. She states her symptoms are associated with increased urinary frequency. She has no other complaints at this time. Related Data Home Medications Medication Instructions Recorded Confirmed levothyroxine 125 mcg tablet 125 mcg PO DAILY 01/06/23 09/03/23 Allergies Allergy/AdvReac Type Severity Reaction Status Date / Time cefdinir Allergy Severe Hives / Verified 09/24/23 00:44 Red Face cephalexin Allergy Intermediate Itching Verified 09/24/23 00:44 Penicillins Allergy Intermediate Nausea Verified 09/24/23 00:44 clindamycin Allergy Rash Verified 09/24/23 00:44 Review of Systems Review of Systems: Last menstrual period 5 weeks ago All systems reviewed & are unremarkable except as noted in HPI and below PMFSH Past Medical History Medical History Encounter for insertion of intrauterine contraceptive device 06/16/2018 Encounter for removal of intrauterine contraceptive device 10/22/2018 Encounter for screening examination for sexually transmitted disease History of hypothyroidism Vaginal discharge Family History Family History Other Arthritis Social History Social History Smoking status: Never smoker Second hand tobacco smoke exposure: No Alcohol intake: never Substance use: never Lack of Transportation: No Lack of Food: Never True Current Housing: I Have Housing Concerned About Future Housing: No Difficulty Paying Gas/Electric Bills: No Difficulty Paying for Meds: No Currently Unemployed: No Education: High School Diploma/GED Difficulty w/ Childcare or Family Care: No Living arrangements: with family Occupation/Education: unemployed Gender identity (if verbalized by the patient): Female Sexual Orientation (if Verbalized by the Patient): Straight or Heterosexual Exam Narrative: GENERAL: Well-developed, well-nourished, and in no acute distress. HEAD: Normocephalic, atraumatic. EYES: PERRLA and EOMI. CHEST: Clear to auscultation. No respiratory distress. No wheezes rales or rhonchi HEART: Regular rate and rhythm. No murmur heard. Normal peripheral pulses. ABDOMEN: Soft, mild tenderness to palpation in the suprapubic region without rebound or guarding, nondistended, normal active bowel sounds. No CVA tenderness. EXTREMITIES: Normal range of motion. No edema. SKIN: Warm, dry, no rash. NEURO: Alert and oriented x3. No focal deficit. Moving all 4 limbs spontaneously PSYCH: Normal mood and affect. Course Course Emergency Course: 02:48 - CBC demonstrates mild anemia with hemoglobin 11.9 and thrombocytopenia with platelets of 115 (the patient has been thrombocytopenic to 109 previously). Chemistries unremarkable. UA demonstrates 2+ leukocyte esterase and 11-20 wbc's. Stat rad interpretation of CT abdomen pelvis demonstrates ?normal appendix, no acute bowel findings, no hydronephrosis or nephrolithiasis, bladder is unremarkable, 4.2 cm left ovarian cyst. Trace pelvic free fluid recommend ultrasound. ? The patient's pain improved with GI cocktail. I have a low suspicion for ovarian torsion. I s
[2023-09-24] MEDS: BELLADONNA ALK/PHENOB ELIX 10 ML, MAG HYDROX/ALUMINUM HYD/SIMETH 30 ML, LIDOCAINE HCL 2... PO (00:55)
[2023-09-24 00:56] LABS: Appearance Urine Clear (Clear); Bacteria Urine None Seen /hpf; Bilirubin Urine Negative (Negative); Blood Urine Negative (Negative); Color Urine Yellow (Yellow); Glucose Urine UA Negative (Negative); Ketones Urine Negative (Negative); Leukocyte Esterase Ur 2+ LEU/UL (Negative); Nitrate Urine Negative (Negative); Non Pathogenic Casts 0-2; Protein Urine Negative (Negative); RBC Urine 0-2 /hpf (0-2); Specific Grav Ur 1.005 (1.001-1.035); Squamous Epithelial Cell Urine Few /hpf (Few); Urobilinogen Urine 0.2 mg/dL (<2.0)
[2023-09-24 01:00] LABS: Add Urine Microscopic? YES
[2023-09-24 01:25] LABS: Alanine Aminotransferase 16 U/L (6-35); Albumin Level 4.2 g/dL (3.5-5.1); Alkaline Phosphatase 42 U/L (38-126); Anion Gap 7 mmol/L (4-12); Aspartate Amino Transferase 28 U/L (14-36); Bilirubin,Total 0.5 mg/dL (0.2-1.3); Blood Urea Nitrogen 13 mg/dL (7-17); Carbon Dioxide 27 mmol/L (22-30); Chloride 102 mmol/L (98-107); Estimated CRCL calculation 88 ml/min; Estimated Glomerular Filt Rate > 60; Glucose 110 mg/dL (65-110); Lipase 138 U/L (23-300); Potassium 3.8 mmol/L (3.4-5.0); Sodium 136 mmol/L (137-145)
[2023-09-24 01:29] LABS: Basophils Percent Auto 0.2 % (0.2-1.2); Eosinophils Absolute Auto 0.2 K/mm3 (0-0.3); Eosinophils Percent Auto 3.9 % (0-4.4); Hematocrit 35.9 % (37.0-47.0); Hemoglobin 11.9 g/dL (12.0-15.0); Immature Granulocyte Absolute 0.01 K/mm3 (0.00-0.031); Immature Granulocyte Percent A 0.2 % (0-0.5); Immature Platelet Fraction Pct 11.5 % (0.9-11.2); Lymphocytes Absolute Auto 1.32 K/mm3 (0.9-3.2); Lymphocytes Percent Auto 21.2 % (18.3-44.2); Mean Corpuscular HGB Conc 33.1 g/dl (32-36); Mean Corpuscular Hemoglobin 28.4 pg (26-34); Mean Corpuscular Volume 85.7 fl (80-100); Mean Platelet Volume 12.4 fl (7.4-10.4); Monocytes Absolute Auto 0.6 K/mm3 (0.1-0.6); Monocytes Percent Auto 9.6 % (2.6-8.5); Neutrophils Absolute Auto 4.1 K/mm3 (1.3-6.7); Neutrophils Percent Auto 64.9 % (45.5-73.1); Platelet Count Result 115 k/mm3 (150-375); Red Blood Count 4.19 M/mm3 (4.2-5.4); White Blood Count 6.2 K/mm3 (4.5-10.0)
[2023-09-24] MEDS: NITROFURANTOIN MONOHYD MACROCR 100 MG CAP PO (01:40)
[2023-09-24 02:49] VITALS: BP 122/86; PULSE 60; RESP 18; O2SAT 100
== END 2023-09-24 03:00 | disposition home or self-care (01) ==
PROVIDERS: Emergency Provider Preventive Medicine Aerospace Medicine
DX: N39.0 Urinary tract infection, site not specified (principal); K29.70 Gastritis, unspecified, without bleeding; N83.202 Unspecified ovarian cyst, left side; E03.9 Hypothyroidism, unspecified; Z79.899 Other long term (current) drug therapy; Z79.3 Long term (current) use of hormonal contraceptives
CPT/HCPCS: 36415; 74176; 80053; 80074; 81001; 81025; 83690; 85025; 85055; 86592; 86695; 86696; 86703; 87086; 99284; A9270; G0432

== ENCOUNTER 2023-09-24 12:33 | Outpatient (CLI) | payer OTHER, SELFPAY ==
[2023-09-24 14:13] LABS: Hepatitis B Surface Antigen Negative (Negative)
[2023-09-24 14:17] LABS: HIV 1/2 Ab P24 Ag Result Negative (Negative)
[2023-09-24 14:18] LABS: HAV RESULT Negative (Negative); Hepatitis B Core IgM Result Negative (Negative)
[2023-09-24 14:30] LABS: Hepatitis C Virus Antibody Negative (Negative)
[2023-09-25 13:15] LABS: Rapid Plasma Reagin Non-Reactive (NonReactive)
== END 2023-09-24 12:34 | disposition home or self-care (01) ==
LOC: ANHLAB 12:34
PROVIDERS: Visit Provider Student in an Organized Health Care Education/Training Program
DX: Z11.3 Encounter for screening for infections with a predominantly sexual mode of transmission (principal)
CPT/HCPCS: 36415; 80074; 86592; 86695; 86696; 86703; G0432

== ENCOUNTER 2023-09-30 08:04 | Emergency (ER) | payer OTHER, SELFPAY ==
--- NOTE | 2023-09-30 08:07 | ED.URI ---
HPI - URI/Sore Throat General Chief Complaint: Upper Respiratory Infection Stated Complaint: Strep Symptoms Time Seen by Provider: 09/30/23 08:07 Source: patient Mode of arrival: ambulatory Limitations: no limitations History of Present Illness HPI Narrative: Patient is a 28-year-old female who presents with 2 days of sore throat. Patient took allergy medicine thinking it was allergies with no relief. Has not taken anything else for symptoms. Denies any fever, chills, nausea, vomiting, diarrhea. Finished Macrobid today. Related Data Home Medications Medication Instructions Recorded Confirmed levothyroxine 125 mcg tablet 125 mcg PO DAILY 01/06/23 09/30/23 Allergies Allergy/AdvReac Type Severity Reaction Status Date / Time cefdinir Allergy Severe Hives / Verified 09/30/23 08:18 Red Face cephalexin Allergy Intermediate Itching Verified 09/30/23 08:18 Penicillins Allergy Intermediate Nausea Verified 09/30/23 08:18 clindamycin Allergy Rash Verified 09/30/23 08:18 Review of Systems Review of Systems: All systems reviewed & are unremarkable except as noted in HPI and below Constitutional: Constitutional: Denies body ache(s), Denies fever(s), Denies headache(s), Denies malaise and Denies weakness Eyes: Eyes: Denies loss of vision ENT: Denies otalgia, Denies headache(s), Denies nasal congestion, Denies sinus pain and Reports sore throat Cardiovascular: Cardiovascular: Denies chest pain, Denies irregular heart rhythm and Denies dyspnea Respiratory: Respiratory: Denies cough and Denies dyspnea Gastrointestinal: Gastrointestinal: Denies abdominal pain, Denies melena, Denies hematochezia, Denies diarrhea, Denies nausea and Denies vomiting Musculoskeletal: Musculoskeletal: Denies back pain, Denies myalgias and Denies arthralgias Integumentary/Breasts: Skin/Breast: Denies pruritus and Denies rash Neurologic: Denies headache(s), Denies loss of vision and Denies weakness Psychiatric: Psychiatric: Reports no additional psychiatric complaints PMFSH Past Medical History Medical History Encounter for insertion of intrauterine contraceptive device 06/16/2018 Encounter for removal of intrauterine contraceptive device 10/22/2018 Encounter for screening examination for sexually transmitted disease History of hypothyroidism Vaginal discharge Family History Family History Other Arthritis Social History Social History Smoking status: Never smoker Second hand tobacco smoke exposure: No Alcohol intake: never Substance use: never Lack of Transportation: No Lack of Food: Never True Current Housing: I Have Housing Concerned About Future Housing: No Difficulty Paying Gas/Electric Bills: No Difficulty Paying for Meds: No Currently Unemployed: No Education: High School Diploma/GED Difficulty w/ Childcare or Family Care: No Living arrangements: with family Occupation/Education: unemployed Gender identity (if verbalized by the patient): Female Sexual Orientation (if Verbalized by the Patient): Straight or Heterosexual Comments At time of signature, agree with nursing past medical, surgical, social and family history. There is no relevant family history pertinent to the presenting complaint. Exam Const: General: cooperative, healthy appearing, comfortable, no acute distress and well nourished Nutritional Appearance: well nourished Orientation/consciousness: patient oriented x3 Limitations: no limitations HENMT: Head: normal to inspection, normocephalic and atraumatic Ears: hearing grossly normal bilaterally, external ears normal, TM's normal bilaterally and EAC's normal Face/Nose/Sinus: Normal external nose present, Normal nares present, Normal nasal mucous membranes and turbinates present, Normal septum present, normal fa
[2023-09-30 08:18] VITALS: BP 102/64; PULSE 87; RESP 16; TEMP 36.8; O2SAT 100
[2023-09-30 08:19] VITALS: BP 102/64; PULSE 87; RESP 16; TEMP 36.8; O2SAT 100
== END 2023-09-30 09:02 | disposition home or self-care (01) ==
PROVIDERS: Emergency Provider Nurse Practitioner Family
DX: J02.0 Streptococcal pharyngitis (principal); E03.9 Hypothyroidism, unspecified
CPT/HCPCS: 87880; 99213; G0463

== ENCOUNTER 2023-11-18 17:32 | Emergency (ER) | payer OTHER, SELFPAY ==
--- NOTE | 2023-11-18 17:36 | ED.URI ---
HPI - URI/Sore Throat General Chief Complaint: Upper Respiratory Infection Stated Complaint: poss strep Time Seen by Provider: 11/18/23 18:00 Source: patient Mode of arrival: ambulatory Limitations: no limitations History of Present Illness HPI Narrative: Millicent is a 28-year-old female patient presenting to the clinic today with complaints of sore throat. She reports that she thinks she may have strep. Symptoms started yesterday. She reports she was right ear pain yesterday with some nasal congestion and mild cough. She denies any fever or chills. MD elicited complaint: cough, sore throat and nasal congestion Related Data Home Medications Medication Instructions Recorded Confirmed levothyroxine 125 mcg tablet 125 mcg PO DAILY 01/06/23 09/30/23 Allergies Allergy/AdvReac Type Severity Reaction Status Date / Time cefdinir Allergy Severe Hives / Verified 09/30/23 08:18 Red Face cephalexin Allergy Intermediate Itching Verified 09/30/23 08:18 Penicillins Allergy Intermediate Nausea Verified 09/30/23 08:18 clindamycin Allergy Rash Verified 09/30/23 08:18 Review of Systems Review of Systems: Pertinent positives per HPI. Patient denies any fever, chills, rash, headache, visual changes, dizziness, cough, shortness of breath, chest pain, palpitations, nausea, vomiting, diarrhea, constipation, abdominal pain, or any urinary issues. [facility] Past Medical History Medical History Encounter for insertion of intrauterine contraceptive device 06/16/2018 Encounter for removal of intrauterine contraceptive device 10/22/2018 Encounter for screening examination for sexually transmitted disease History of hypothyroidism Vaginal discharge Family History Family History Other Arthritis Social History Social History Smoking status: Never smoker Second hand tobacco smoke exposure: No Alcohol intake: never Substance use: never Lack of Transportation: No Lack of Food: Never True Current Housing: I Have Housing Concerned About Future Housing: No Difficulty Paying Gas/Electric Bills: No Difficulty Paying for Meds: No Currently Unemployed: No Education: High School Diploma/GED Difficulty w/ Childcare or Family Care: No Living arrangements: with family Occupation/Education: unemployed Gender identity (if verbalized by the patient): Female Sexual Orientation (if Verbalized by the Patient): Straight or Heterosexual Comments At the time of my signature, I reviewed and agree with the nursing past medical, surgical, social, and family history. There is no relevant family history pertinent to the patient complaint. Exam Narrative: General: Well-developed, well nourished, in no apparent distress Head: Normocephalic, atraumatic Eyes: Pupils equally round and reactive to light bilaterally, EOM intact, sclera and conjunctive clear, no discharge, lids normal Ears: Left TMs intact and clear, right TM intact, bulging, red, ear canals clear, no drainage, grossly hearing normal. Nose: Nares patent, clear nasal discharge, no inflammation, no sinus tenderness. Mouth: Oral pharynx red without lesions or masses, good dentition, MMM. Neck: Supple, trachea midline, no enlargement of anterior or posterior cervical nodes, no thyroid masses or goiter palpable. Cardio: Regular rate and rhythm, s1 and s2 normal, no murmur appreciated. Resp: Clear to auscultation bilaterally, no rhonchi, rales, wheezing or rubs Course Course Emergency Course: Portions of this record may have been created with voice recognition software. Level of Care: Express Care Visit Vital Signs Vital signs: Vital Signs Temperature 36.8 C 11/18/23 17:52 Pulse Rate 74 11/18/23 17:52 Respiratory Rate 16 11/18/23 17:52 Blood Pressure 105/68
[2023-11-18 17:52] VITALS: BP 105/68; PULSE 74; RESP 16; TEMP 36.8; O2SAT 100
[2023-11-18 18:07] LABS: EDSTREPNEGPOS1 Presumptive Negative
== END 2023-11-18 18:33 | disposition home or self-care (01) ==
PROVIDERS: Emergency Provider Nurse Practitioner Family
DX: H66.91 Otitis media, unspecified, right ear (principal); J06.9 Acute upper respiratory infection, unspecified; J02.9 Acute pharyngitis, unspecified; E03.9 Hypothyroidism, unspecified
CPT/HCPCS: 87081; 87880; 99213; G0463

== ENCOUNTER 2024-01-28 15:42 | Emergency (ER) | payer OTHER, SELFPAY ==
[2024-01-28 15:51] VITALS: BP 129/87; PULSE 85; RESP 16; TEMP 36.6; O2SAT 100
--- NOTE | 2024-01-28 16:08 | ED.URI ---
HPI - URI/Sore Throat General Chief Complaint: Upper Respiratory Infection Stated Complaint: congestion,cough Time Seen by Provider: 01/28/24 16:02 Source: patient, RN notes reviewed and old records reviewed Mode of arrival: ambulatory Limitations: no limitations History of Present Illness HPI Narrative: 28 year old female presents to [facility] care with complaints of 2 week duration of sinus pressure, drainage and congestion with some cough which has increased this week. Patient reports that she has some nausea but denies any vomiting or diarrhea, Patient reports no known fevers, chills or sweats, denies any body aches. Patient reports since pressure and some headache discomfort. Patient has been taking Deb and Deb D for her symptoms. Patient reports past history of sinus infections. MD elicited complaint: cough, rhinorrhea, nasal congestion, sinus pain and other (headache) Onset (ago): week(s) (2) Pain scale (0-10): 5 Able to tolerate fluids by mouth: Yes Treatments prior to arrival: other (Deb, and Deb D) Related Data Home Medications Medication Instructions Recorded Confirmed levothyroxine 125 mcg tablet 125 mcg PO DAILY 01/06/23 01/28/24 Allergies Allergy/AdvReac Type Severity Reaction Status Date / Time cefdinir Allergy Severe Hives / Verified 01/28/24 16:06 Red Face cephalexin Allergy Intermediate Itching Verified 01/28/24 16:06 Penicillins Allergy Intermediate Nausea Verified 01/28/24 16:06 clindamycin Allergy Rash Verified 01/28/24 16:06 Review of Systems Review of Systems: CONSTITUTIONAL: Reports malaise, no chills, sweats, or fever. EYES: Denies visual changes, redness, or discharge. ENT: Reports rhinorrhea, congestion, sinus pain, no otalgia and no sore throat. CARDIOVASCULAR: Denies chest pain, palpitations, or edema. RESPIRATORY: Reports cough.? Denies dyspnea. GASTROINTESTINAL: Denies abdominal pain, reports some nausea, no vomiting, diarrhea SKIN: Denies rash or itching. MUSCULOSKELETAL: Denies myalgia. NEUROLOGIC: reports headache. All systems reviewed & are unremarkable except as noted in HPI and below PMFSH Past Medical History Medical History Encounter for insertion of intrauterine contraceptive device 06/16/2018 Encounter for removal of intrauterine contraceptive device 10/22/2018 Encounter for screening examination for sexually transmitted disease History of hypothyroidism Vaginal discharge Family History Family History Other Arthritis Social History Social History Smoking status: Never smoker Second hand tobacco smoke exposure: No Alcohol intake: never Substance use: never Lack of Transportation: No Lack of Food: Never True Current Housing: I Have Housing Concerned About Future Housing: No Difficulty Paying Gas/Electric Bills: No Difficulty Paying for Meds: No Currently Unemployed: No Education: High School Diploma/GED Difficulty w/ Childcare or Family Care: No Living arrangements: with family Occupation/Education: unemployed Gender identity (if verbalized by the patient): Female Sexual Orientation (if Verbalized by the Patient): Straight or Heterosexual Comments At time of signature, agree with nursing past medical, surgical, social and family history. There is no relevant family history pertinent to the presenting complaint Exam Narrative: GENERAL: Well-appearing, well-nourished, and in no acute distress. HEAD: Normocephalic EYES: PERRLA, conjunctivae clear ENT: Nares clear, turbinates edematous and erythematous, clear discharge, sinus pressure and headache discomfort.. Mucous membranes moist. TM pearly piña with dull light reflex bilaterally; no tragal tenderness. Oropharynx erythematous without lesions. Tonsils not enlarged and withou
== END 2024-01-28 16:24 | disposition home or self-care (01) ==
PROVIDERS: Emergency Provider Registered Nurse
DX: J32.9 Chronic sinusitis, unspecified (principal); R05.9 Cough, unspecified; E03.9 Hypothyroidism, unspecified
CPT/HCPCS: 99213; G0463

== ENCOUNTER 2024-03-19 11:34 | Outpatient (CLI) | payer OTHER, SELFPAY ==
[2024-03-19 12:12] LABS: Basophils Percent Auto 0.2 % (0.2-1.2); Eosinophils Absolute Auto 0.1 K/mm3 (0-0.3); Eosinophils Percent Auto 1.9 % (0-4.4); Hematocrit 36.7 % (37.0-47.0); Hemoglobin 12.2 g/dL (12.0-15.0); Immature Granulocyte Absolute 0.01 K/mm3 (0.00-0.031); Immature Granulocyte Percent A 0.2 % (0-0.5); Lymphocytes Absolute Auto 0.99 K/mm3 (0.9-3.2); Mean Corpuscular HGB Conc 33.2 g/dl (32-36); Mean Corpuscular Hemoglobin 29.5 pg (26-34); Mean Corpuscular Volume 88.6 fl (80-100); Mean Platelet Volume 11.8 fl (7.4-10.4); Monocytes Absolute Auto 0.4 K/mm3 (0.1-0.6); Monocytes Percent Auto 6.7 % (2.6-8.5); Neutrophils Absolute Auto 4.3 K/mm3 (1.3-6.7); Platelet Count Result 123 k/mm3 (150-375); Red Blood Count 4.14 M/mm3 (4.2-5.4); White Blood Count 5.8 K/mm3 (4.5-10.0)
[2024-03-19 13:03] LABS: HIV 1/2 Ab P24 Ag Result Negative (Negative); T4 Thyroxine 8.39 ug/dL (5.53-11.0)
[2024-03-19 13:19] LABS: Hepatitis B Surface Antigen Negative (Negative)
[2024-03-19 13:31] LABS: Rapid Plasma Reagin Non-Reactive (NonReactive)
[2024-03-19 13:48] LABS: Rubella IgG Antibody > 110.0 IU/ML
[2024-03-23 09:14] LABS: CMV IgG Antibody <0.60 U/mL
== END 2024-03-19 11:35 | disposition home or self-care (01) ==
LOC: ANHLAB 11:36
PROVIDERS: Visit Provider Student in an Organized Health Care Education/Training Program
DX: O99.280 Endocrine, nutritional and metabolic diseases complicating pregnancy, unspecified trimester (principal); E03.9 Hypothyroidism, unspecified
CPT/HCPCS: 36415; 84436; 84443; 84702; 85025; 85055; 86592; 86644; 86703; 86747; 86762; 86787; 86850; 86900; 86901; 87086; 87340; G0432

== ENCOUNTER 2024-06-08 19:30 | Emergency (ER) | payer MEDICAID, SELFPAY ==
[2024-06-08 19:38] VITALS: BP 112/73; PULSE 110; RESP 16; TEMP 37.3; O2SAT 100
--- NOTE | 2024-06-08 19:45 | ED_ITS ---
HPI - URI/Sore Throat General Chief Complaint: Upper Respiratory Infection Stated Complaint: Flu Symptoms Source: patient and RN notes reviewed Mode of arrival: ambulatory Limitations: no limitations History of Present Illness HPI Narrative: 28 year old female presented for complaint of headache, body aches, sinus pressure/congestion, cough, fever/chills. Onset yesterday. Says cough is productive. Also reports left ear pain. Taking ibuprofen and Deb for symptoms. Denies sob, wheezing, n/v/d. MD elicited complaint: cough Related Data Home Medications ?Medication ?Instructions ?Recorded ?Confirmed ?Last Taken ?Type levothyroxine 125 mcg tablet 125 mcg PO DAILY 01/06/23 05/25/24 Unknown History Allergies Allergy/AdvReac Type Severity Reaction Status Date / Time cefdinir Allergy Severe Hives / Verified 06/08/24 19:44 Red Face cephalexin Allergy Intermediate Itching Verified 06/08/24 19:44 Penicillins Allergy Intermediate Nausea Verified 06/08/24 19:44 clindamycin Allergy Rash Verified 06/08/24 19:44 Review of Systems Review of Systems: Per [facility] Past Medical History Medical History Vaginal discharge Encounter for screening examination for sexually transmitted disease Encounter for removal of intrauterine contraceptive device 10/22/2018 Encounter for insertion of intrauterine contraceptive device 06/16/2018 History of hypothyroidism Family History Family History Other Arthritis Social History Social History Smoking status: Never smoker Second hand tobacco smoke exposure: No Alcohol intake: never Substance use: never Do You Feel Safe in your Home?: Yes Lack of Transportation: No Lack of Food: Sometimes True Current Housing: I Have Housing Concerned About Future Housing: No Difficulty Paying Gas/Electric Bills: YES Difficulty Paying for Meds: No Currently Unemployed: No Education: High School Diploma/GED Difficulty w/ Childcare or Family Care: No Living arrangements: with family Occupation/Education: unemployed Gender identity (if verbalized by the patient): Female Sexual Orientation (if Verbalized by the Patient): Straight or Heterosexual Exam Narrative: GENERAL: Ill-appearing, nontoxic no acute distress. EYES: PERRLA, conjunctivae clear ENT: Mucous membranes moist. Right TM pearly piña with dull light reflex left hand slightly erythematous with dull light reflex and clear effusion; no tragal tenderness. Oropharynx erythematous without lesions or exudate, no drooling, no hoarseness, no trismus, uvula midline. No tripod positioning, muffled voice, soft palate or pharyngeal wall bulging NECK: Supple. No lymphadenopathy CHEST: Clear to auscultation, breath sounds equal. No wheezing, rhonchi, rales, or stridor. No respiratory distress, speaks in full sentences. HEART: Regular rate and rhythm. No murmur heard. SKIN: Warm, dry, no rash. NEURO: Alert and oriented x3. PSYCH: Normal mood and affect Course Course Emergency Course: Patient is aware of diagnosis, understands and agrees to treatment plan. Anticipatory guidance given. Patient agrees to follow-up as directed and is aware of reasons to seek care at the emergency department. Portions of this record may have been created with voice recognition software Level of Care: Express Care Visit Vital Signs Vital signs: Vital Signs Temperature 99.1 F 06/08/24 19:38 Pulse Rate 110 H 06/08/24 19:38 Respiratory Rate 16 06/08/24 19:38 Blood Pressure 112/73 06/08/24 19:38 Pulse Oximetry 100 06/08/24 19:38 Temperature 99.1 F 06/08/24 19:38 Pulse Rate 110 H 06/08/24 19:38 Respiratory Rate 16 06/08/24 19:38 Blood Pressure 112/73 06/08/24 19:38 Pulse Oximetry 100 06/08/24 19:38 reviewed MDM - URI/Sore Throat MDM Narrative Medical decision making narrative: Positive flu Discussed physical exam findings. Will start abx for left ear if pain persists. Advised supportive measures and signs/symptoms to go to the ER. Pt is appropriate for outpt treatment and f/u. Differential Diagnosis Differential diagnosis: Likely upper respiratory infection, sinusitis, viral infection, bronchitis, influenza and pharyngitis Discharge Plan Discharge Clinical Impression: Influenza Patient Disposition: Home, Self-Care Condition: Stable Instructions: Influenza (ED) Additional Instructions: Influenza positive You should avoid crowds until you are fever free for 24 hours without the use of fever reducing medications, or the symptoms are improved Rest. Drink plenty of fluids. Tylenol 1000mg every 8 hours as needed for pain/fever Flonase spray and Zyrtec (or Claritin/Deb) for sinus pressure/congestion over the counter Cough syrup may cause drowsiness; avoid driving or take it at night time. Talk with your Obgyn before starting any over the counter medication. Follow up with your primary care provider as needed Go to the ER for worsening symptoms or concerns Patient Language: [place]anian Prescriptions: New azithromycin [Zithromax Z-Ryan] 250 mg tablet See Rx Instructions .ROUTE .COMPLEX Qty: 6 0RF Rx Instructions: For 250 mg dose pack: take 500 mg today (day 1), then 250 mg for 4 days (days 2-5) No Action levothyroxine 125 mcg tablet 125 mcg PO DAILY Classic 28 mg iron- 800 mcg tablet 1 tablet PO DAILY Qty: 60 2RF Rx Instructions: any vitamin covered by insurance is ok to fill Follow-up/Referrals: PHYSICIAN,TRAVEL DIRECTOR [Primary Care Provider] - Stand Alone Forms: Work/School Release IP Time of Disposition: 19:54
[2024-06-08 19:58] LABS: EDCOVIDSCREEN Negative (Negative); EDINFLUASCREEN Positive (Negative); EDINFLUBSCREEN Negative (Negative)
== END 2024-06-08 19:55 | disposition home or self-care (01) ==
PROVIDERS: Emergency Provider Nurse Practitioner Family
DX: J10.1 Influenza due to other identified influenza virus with other respiratory manifestations (principal); Z20.822 Contact with and (suspected) exposure to COVID-19
CPT/HCPCS: 87426; 87804; 99213; G0463

== ENCOUNTER 2024-06-30 12:04 | Outpatient (CLI) | payer MEDICAID, SELFPAY ==
[2024-06-30 13:17] LABS: Free T4 Free Thyroxine 1.59 ng/dL (0.78-2.19)
--- OUTSIDE RECORDS SUMMARY | 2024-06-30 13:38 | XMS_ITS | Clinical Summary ---
Author Organization [facility] [employer] Address [address] [place] [address] Care Team Providers Care Switchboard Wirer Name Role Phone Shelbi Perez MD Primary Care Provider [phone] Source Comments [facility],non-Critical access hospitalates and Associated Physician Practices is amultiple site organization consisting of ambulatory clinics and hospital sitesin [place], [place], [place] and [place]. This disclosure is being madepursuant to the Care Everywhere program and may not contain all information available regarding this patient. Last updated 18.[facility] [employer] Allergies Active Allergy Reactions Criticality Noted Date Comments Cefdinir Rash,Other Low 05/07/2012 Cephalexin Itching 01/01/2021 Penicillins Urticaria Medium 08/23/2020 Medications * Be aware that medications may not be up to date on this document. Alwaysverify current medications with the patient. Medication Sig Dispensed Refills Start Date End Date Status fluticasone propionate (FLONASE) 50 MCG/ACT nasal sprayIndications:Nasa l Signs and Symptoms [place] 2 (two) sprays into each nostril once daily Reasons: Signs and Symptoms of Nose Diseases Active Vit-Fe Fumarate-FA ( VITAMIN) 28-0.8 MG tabletIndications:Pre gnancy Take 1 (one) tablet by mouth once daily Reasons: Active fexofenadine-pseudoep hedrine ER 12hr (Deb-D) 60-120 MG tablet Take 1 (one) tablet by mouth 2 times daily Active albuterol HFA (ProAir HFA) 108 (90 Base) MCG/ACT inhalerIndications:Mi ld intermittent reactive airway disease (HCC) Inhale 2 (two) puffs by mouth every 4 hours as needed for Shortness of Breath or Wheezing 8.5 g 3 05/29/2023 Active Additional Information Patient not taking.Reported on 05/12/2024 levothyroxine (Synthroid) 125 MCG tabletIndications:Acq uired hypothyroidism Take 1 (one) tablet by mouth once daily 30 tablet 3 03/24/2024 Active Active Problems Problem Noted Date Diagnosed Date Indigestion 05/12/2024 Joint pain 05/12/2024 Low back pain 05/12/2024 Mass of left breast 05/12/2024 Numbness 05/12/2024 Shoulder pain 05/12/2024 Suppression of menstruation 05/12/2024 Urinary tract obstruction 05/12/2024 Vaginal discharge 05/12/2024 Normocytic anemia 09/20/2023 Papular rash, localized 06/01/2023 Acne vulgaris 06/01/2023 Primary thrombocytopenia 10/03/2022 Chronic recurrent sinusitis 09/30/2022 COVID-19 05/02/2021 Drug reaction 11/27/2020 Mild intermittent reactive airway disease 2020 Chronic rhinitis 11/27/2020 Abnormal ultrasound 11/15/2020 Overview (11/29/2020): Mild dilation of bowel noted 11/15. Patient has not had CF screening. AGA growth today. Analyte screening: CF screen: negative for 32 mutations screened. SMA screen: negative Fragile X: negative Assessment & Plan (11/15/2020 11:15 AM CDT): Mild dilation of bowel noted 11/15. Patient has not had CF screening. AGA growth today. [facility] recommendations: 1. Ultrasound results reviewed with patient by Dr. Weaver today at office visit including recommendations for patient to [facility] which we will help to coordinate today. Questions answered and patient denied concerns. 2. Sent today with lab req.for CF screen. 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 Recommendations 1. Referral to Physical Therapy for assessment 2. medicated heat strip to the back as needed Hypothyroidism 07/25/2020 Overview (11/27/2020): (06/16/20) TSH: 5.020 (08/04/20) TSH: 5.85; FT3: 2.5; FT4: 1.1 (09/12/20) TSH 1.91, FT4 1.3,Thyroid Peroxidase Antibodies 684 (10/18/20) TSH 1.63; FT4 1.2 (11/27/20) TSH: 1.68, FT4: 1.1 Assessment & Plan (11/15/2020 11:14 AM CDT): Clinically euthyroid, last checked 10/18. Elevated TPO ab may confer risk of flare of thyroid dysfunction. [facility] Recommendations: 1. Continue levothyroxine at dose of 150 mcg daily 2. Continue aspirin 3. Repeat thyroid studies--requisition provided again; if again stable can re- check late in the 3rd trimester 4. Serial growth every 4 weeks 5. Warrants evaluation by Ems Driver or PCP in first 3 months ; scheduled with endocrinology 11/28. Reviewed this with patient today. Assessment & Plan (10/18/2020 3:03 PM CDT): Clinically euthyroid. Elevated TPO ab may confer risk of flare of thyroid dysfunction. Recommendations: 1. Continue levothyroxine at dose of 150 mcg daily 1. No recent lab results to review 2. Continue aspirin 3. Repeat thyroid studies--requisition provided again 4. Serial growth every 4 weeks 5. Warrants evaluation by Ems Driver or PCP in first 3 months Assessment & Plan (09/20/2020 3:11 PM CDT): Euthyroid. Elevated TPO ab may confer risk of flare of thyroid dysfunction. She did not report whether she had a visit with an Ems Driver today--previously initiated attempts to refer her. Recommendations: 1. Continue levothyroxine at dose of 150 mcg daily 2. Continue aspirin 3. Repeat thyroid studies in 4 weeks--requisition provided 4. Serial growth every 4 weeks 5. Warrants evaluation by Ems Driver or PCP in first 3 months Assessment & Plan (08/23/2020 5:07 PM CDT): Millicent does not believe she has ever seen an Ems Driver. Her primary care physician is managing her thyroid disorder. Untreated hypothyroidism is associated with an increased risk of preeclampsia, placental abruption, nonreassuring heart rate tracings, delivery, delivery, post- hemorrhage and childhood cognitive impairment. Neuropsychological impairment has also been observed in the children of women with subclinical hypothyroidism. Levothyroxine requirements increase 30 to 45%, on average, beginning as early as 5 weeks gestation, with almost all of the increase by 20 weeks'gestation. The goal of treatment is normalization of the TSH level with free T4 in the upper normal range. The last TSH reflects a need for increased levothyroxine replacement. Maternal Medicine recommendations: 1. increase levothyroxine by 25 micrograms daily (new total daily dose 150 mcg daily)--prescription provided 2. repeat TSH and free T4--to be drawn prior to the next follow-up consultation 3. labs also given for thyroid peroxidase antibodies--to be performed prior to our next follow-up consultation 4. Referral to Endocrinology I increased the levothyroxine to History of prior with IUGR Assessment & Plan (11/15/2020 11:14 AM CDT): AGA growth with completed anatomy. At increased risk for recurrent growth restriction. Maternal Medicine recommendations: 1. continue aspirin for hypertensive disorder risk reduction 2. serial growth every 4 weeks after 20 to 24 weeks Assessment & Plan (10/18/2020 3:00 PM CDT): At increased risk for recurrent growth restriction. Maternal Medicine recommendations: 1. continue aspirin for hypertensive disorder risk reduction 2. serial growth every 4 weeks after 20 to 24 weeks Assessment & Plan (08/23/2020 5:08 PM CDT): At increased risk for recurrent growth restriction. Maternal Medicine recommendations: 1. continue aspirin for hypertensive disorder risk reduction 2. serial growth every 4 weeks after 20 to 24 weeks 06/22/2020 Neuropathy Overview (09/20/2020): affecting legs and feet but sometimes the hands--improves with rest. Diagnosed with EMG. Assessment & Plan (10/18/2020 3:00 PM CDT): Still having lower extremity neuropathy. Recommendations 1. Referral to Neurology--assistance provided today Assessment & Plan (09/20/2020 3:08 PM CDT): Recommendations 1. Encouraged to contact her Neurologist for reevaluation Resolved Problems Problem Noted Date Diagnosed Date Resolved Date Acute urinary tract infection 05/12/2024 05/26/2024 Upper respiratory infection 07/10/2022 05/26/2024 Depression screening-Initial 12/04/2020 12/04/2020 01/26/2021 Overview (01/01/2021): 12/04/2020 Millicent Centeno was screened for depression using the [place] Depression Scale (EPDS) at her [facility] initial evaluation on 12/04/2020. Her initial score at baseline was 0. Based off of her score of 0, Millicent does not warrant follow up. Patient will continue to be screened throughout , at intervals no closer than two weeks, for continued surveillance and early identification of depression until delivery. Patient reports mental health history. Diagnoses includes depression. 01/01/2021-Follow up EPDS score=0. [facility], abnormality in pr egnancy, bowel dilation 11/22/2020 01/26/2021 Overview (01/03/2021): Images from the original note were not included. [facility] PATIENT--PLEASE CALL [phone] (ex 2) IF TRIAGED OR ADMITTED Care Provider: Dr. Nisha Salinas [facility] consultants involved: Nurse coordinator-Alem Tee; [facility]-Drs. Montana/Owen; Neonatology-Dr. Hager; Pediatric Surgery-Alem Garcia APRN-[employer]ER Diagnosis: Bowel dilation Planned surveillance: Routine OB care; Weekly BPP/NST; Released from [facility] on 01/01/2021 Delivery location: [facility] Delivery mode: No contraindication to vaginal delivery Desired Delivery GA: [id number] scheduled for January 22 at 9:00 am follow up: Per neonatology on 01/01/2021: Recommend evaluation after delivery for abdominal distention and obstructive series. If exam and x-ray are unremarkable, would allow to breast feed ad brianna demand and monitor tolerance. may be able to stay in mother's room in this case. If initial exam or films are abnormal, or if not tolerating feeds, would admit to NICU for IVF and abdominal ultrasound. We discussed the possibility of needing transfer to for further radiologic evaluation (ie LGI), or for surgical evaluation if concerns for obstruction. [place]: Undecided as of 01/01/2021 Autopsy indicated: Genetics note: [employer] Concerns: 12/04/2020-Patient reports a history of depression-no medications Care plan based on evaluation and is subject to change based on assessment. See Images or Cardiac under Chart Review for US/ ECHO/ MRI reports. Frequent headaches 09/20/2020 Assessment & Plan (11/15/2020 11:17 AM CDT): Returned over the past month, improve with snacking. Has a prescription for Magnesium that she has not picked up. Normotensive. [facility] recommendations: 1. Encouraged to tow picker magnesium and take daily, discussed it works as a preventative. 2. Alert OB if headache unrelieved with intervention. We reviewed preeclampsia symptoms in detail, patient aware her blood pressure is low-normal and without proteinuria at this time. 3. Encouraged adequate hydration. Assessment & Plan (10/18/2020 3:00 PM CDT): Resolved spontaneously. Has a prescription for Magnesium that she has not picked up. Assessment & Plan (09/20/2020 3:09 PM CDT): Recommendations: 1. approved the use of Claritin or Zyrtec for allergy component 2. Magnesium for headache prevention--prescription provided Supervision of high-risk pre gnancy of young multigravida 07/25/2020 01/25/2021 Assessment & Plan (11/15/2020 11:19 AM CDT): Reports prior to pre-syncopal episodes. Denies any with her . Reports continued sciatica, has referral for PT with OB that she has not picked up. Has done some yoga. [facility] recommendations: 1. I encouraged her to alert us or OB if occur during . I further instructed her to follow up with her primary medical doctor should they begin to occur again following delivery. 2. We reviewed PTL warnings and kick counts. 3. I encouraged her to tow picker her PT referral from her primary OB. I also reviewed home interventions for sciatica to try for relief. Encounters Date Type Department Care Team Description 06/17/2024 Telephone [facility] - Centralized Scheduling [address] [place] [id number] Jack Johnson MD Appointment (06/17--Spoke to patient-aware of Taha's 5/1 EOV appt- reach out to patient when there is [id number]) 06/17/2024 Telephone [facility] - Centralized Scheduling [address] [place] [phone] Jack Johnson MD Reschedule Appointment (06/17-Spoke to patient-aware of [facility]'s 5/1 EOV cancellatiion-advised of no availability-telephon e encounter to the Dept to reach out. [id number]) 05/28/2024 Orders Only [facility] - Endocrinology [address] [place] [phone] Ian Castillo MD Hypothyroidism, unspecified type 05/12/2024 9:30 AM DIRECTOR TRANSLATION Office Visit [facility] - Internal Med [address] [place] [phone] Papular rash, localized (Primary Dx) 05/12/2024 Travel 05/12/2024 Orders Only [facility] INTERNAL MED [address] [place] [phone] Jack Johnson MD Hypothyroidism, unspecified type 05/11/2024 Telephone [facility] - Internal Med [address] [place] [address] Alfred Blackburn MD Referral 05/11/2024 Travel 04/02/2024 Orders Only [facility] - Endocrinology [address] [facility] [place] [address] Ian Castillo MD Hypothyroidism, unspecified type from Last 3 Months Immunizations Name Administration Dates Next Due Covid Pfizer primary monoval ent 12+ yr 0.3mL Purple cap 01/22/2021(Deferred: Patient Condition - pt may take it PP) MMR 01/24/2021(Deferred: See Comments - patient is documented in H&P as being rubella IMMUNE) TDAP (7yrs+) 01/24/2021 Family History Medical History Relation Name Comments Diabetes; unknown type Father Hypertension Father Arrhthymia Mother Cancer - Breast Paternal Grandmother Relation Name Status Comments Father Alive Maternal Grandfather Maternal Grandmother Alive Mother Alive Paternal Grandfather Paternal Grandmother Social History Tobacco Use Types Packs/Day Years Used Date Smoking Tobacco: Never Smokeless Tobacco: Never Tobacco Cessation:Counseling Given: Not Answered Alcohol Use Standard Drinks/Week Comments Not Currently 0 (1 standard drink = 0.6 oz pur e alcohol) PHQ-2 Answer Date Recorded Patient Health Questionnaire-2 Score 0 09/18/2023 Sex and Gender Information Value Date Recorded Sex Assigned at Female 10/08/2022 8:13 AM CDT Gender Identity Female 10/08/2022 8:13 AM CDT Sexual Orientation Not on file Last Filed Vital Signs Vital Sign Reading Time Taken Comments Blood Pressure 100/54 05/12/2024 9:30 AM DIRECTOR TRANSLATION Pulse 91 05/12/2024 9:30 AM DIRECTOR TRANSLATION Temperature 36.6 C (97.8 F) 09/18/2023 3:07 PM CDT Respiratory Rate 16 05/29/2023 3:26 PM DIRECTOR TRANSLATION Oxygen Saturation 96% 05/12/2024 9:30 AM DIRECTOR TRANSLATION Inhaled Oxygen Concentration - - Weight 68 kg (150 lb) 05/12/2024 9:30 AM DIRECTOR TRANSLATION Height 170.2 cm (5' 7 ) 05/12/2024 9:30 AM DIRECTOR TRANSLATION Body Mass Index 23.49 05/12/2024 9:30 AM DIRECTOR TRANSLATION Plan of Treatment Upcoming Encounters Date Type Department Care Team (Late st Contact Info) Description 08/03/2024 8:20 AM CDT Office Visit [facility] - Endocrinology [address] [facility] [place] [address] Ian Castillo MD [address] [place] [phone] Health Maintenance Due Date Last Done Comments HEPATITIS B VACCINE (1 of 3 - 19+ 3-dose series) 2013 PNEUMOCOCCAL VACCINE (1 of 2 - PCV) 2013 COVID-19 VACCINE (1 - 2023-2 5 season) 2023 INFLUENZA VACCINE (#1) 2023 03/14/2017 PAP SMEAR 03/13/2024 03/13/2021 (Done Outside Per Patient) DEPRESSION SCREENING 04/14/2024 05/29/2023 DTAP/TDAP/TD VACCINES (2 - T d or Tdap) 01/24/2031 01/24/2021 ZOSTER VACCINE (1 of 2) 2044 HEPATITIS C SCREENING Completed 05/14/2022 (Done Outside Per Report) HIV SCREENING Completed 05/23/2022 (Done Outside Per Report) HIB VACCINE Aged Out No longer eligi ble based on patient's age to complete this topic HPV VACCINE Aged Out No longer eligi ble based on patient's age to complete this topic MENINGOCOCCAL (Group B) VACCINE SHARED DECISION-MAKING Aged Out No longer eligible based on patient's age to complete this topic MENINGOCOCCAL GROUPS A/C/Y/W VACCINE Aged Out No longer eligible based on patient's age to complete this topic Advance Directives * Full Code (Latest Code Status on File) Date Activated Date Inactivated Comments 01/22/2021 10:29 AM 01/25/2021 2:48 PM Care Teams Switchboard Wirer Relationship Specialty Start Date End Date Shelbi Perez MD [address] [facility] [place] [id number] PCP - General Internal Medicine 06/21/24
[2024-06-30 18:18] LABS: Free T3 2.89 pg/mL (2.32-6.09)
== END 2024-06-30 12:05 | disposition home or self-care (01) ==
LOC: ANHLAB 12:06
PROVIDERS: Visit Provider Obstetrics & Gynecology
DX: O99.281 Endocrine, nutritional and metabolic diseases complicating pregnancy, first trimester (principal); E03.9 Hypothyroidism, unspecified
CPT/HCPCS: 36415; 84439; 84443; 84481

== ENCOUNTER 2024-08-10 11:41 | Outpatient (CLI) | payer OTHER, SELFPAY ==
--- OUTSIDE RECORDS SUMMARY | 2024-08-10 13:04 | XMS_ITS | Clinical Summary ---
Author Organization [facility] [employer] Address [address] [place] [address] Care Team Providers Care Quantitative Strategy Analyst Name Role Phone Shelbi Perez MD Primary Care Provider [phone] [facility],non-Replaced by [facility] and Associated Physician Practices is amultiple site organization consisting of ambulatory clinics and hospital sitesin [place], [place], [place] and [place]. This disclosure is being madepursuant to the Care Everywhere program and may not contain all information available regarding this patient. Last updated 18.[facility] [employer] Allergies Active Allergy Reactions Criticality Noted Date Comments Cefdinir Rash,Other Low 05/07/2012 Cephalexin Itching 01/01/2021 Penicillins Urticaria Medium 08/23/2020 Medications * Be aware that medications may not be up to date on this document. Alwaysverify current medications with the patient. Vit-Fe Fumarate-FA ( VITAMIN) 28-0.8 MG tabletIndications: Take 1 (one) tablet by mouth once daily Reasons: Active levothyroxine (Synthroid) 150 MCG tabletIndications: Acquired hypothyroidism Take 1 (one) tablet by mouth once daily Double the dose every Friday 35 tablet 11 08/04/19 25 Active fluticasone propionate (FLONASE) 50 MCG/ACT nasal sprayIndications:N zelalem Signs and Symptoms Senatobia 2 (two) sprays into each nostril once daily Reasons: Signs and Symptoms of Nose Diseases 025 Discontin ued(List Clean-Up) fexofenadine-pseud oephedrine ER 12hr (Deb-D) 60-120 MG tablet Take 1 (one) tablet by mouth 2 times daily 025 Discontin ued(List Clean-Up) albuterol HFA (ProAir HFA) 108 (90 Base) MCG/ACT inhalerIndications :Mild intermittent reactive airway disease (HCC) Inhale 2 (two) puffs by mouth every 4 hours as needed for Shortness of Breath or Wheezing 8.5 g 3 05/29/19 24 025 Discontin ued(List Clean-Up) levothyroxine (Synthroid) 125 MCG tabletIndications: Acquired hypothyroidism Take 1 (one) tablet by mouth once daily 30 tablet 3 03/24/20 24 025 Discontin ued(Reord er) levothyroxine (Synthroid) 125 MCG tabletIndications: Acquired hypothyroidism Take 1 (one) tablet by mouth once daily 30 tablet 11 07/31/19 25 025 Discontin ued(Reord er) Active Problems Problem Noted Date Diagnosed Date [...] not had CF screening. AGA growth today. [facility] recommendations: 1. Ultrasound results reviewed with patient [...] confer risk of flare of thyroid dysfunction. [facility] Recommendations: 1. Continue levothyroxine at dose of 150 mcg daily 2. Continue aspirin 3. Repeat thyroid studies--requisition provided again; if again stable can re- check late in the 3rd trimester 4. Serial growth every 4 weeks 5. Warrants evaluation by Burnisher or PCP in first 3 months ; [...] every 4 weeks 5. Warrants evaluation by Burnisher or PCP in first 3 months Assessment & Plan (09/20/2020 3:11 PM CDT): Euthyroid. Elevated TPO ab may confer risk of flare of thyroid dysfunction. She did not report whether she had a visit with an Burnisher today--previously initiated attempts to refer her. Recommendations: 1. Continue levothyroxine at dose of 150 mcg daily 2. Continue aspirin 3. Repeat thyroid studies in 4 weeks--requisition provided 4. Serial growth every 4 weeks 5. Warrants evaluation by Burnisher or PCP in first 3 months Assessment & Plan (08/23/2020 5:07 PM CDT): Millicent does not believe she has ever seen an Burnisher. Her primary care physician is managing her [...] 12/04/2020 12/04/2020 01/26/2021 Overview (01/01/2021): 12/04/2020 Millicent Fernando was screened for depression using the [place] Depression Scale (EPDS) at her [facility] initial evaluation on 12/04/2020. Her initial score at baseline was 0. Based off of her score of 0, Millicent does not warrant follow up. Patient will continue to be screened throughout , at intervals no closer than two weeks, for continued surveillance and early identification of depression until delivery. Patient reports mental health history. Diagnoses includes depression. 01/01/2021-Follow up EPDS score=0. [facility], abnormality in pr egnancy, bowel dilation 11/22/2020 01/26/2021 Overview (01/03/2021): Images from the original note were not included. [facility] PATIENT--PLEASE CALL [phone] (ex 2) IF TRIAGED OR ADMITTED Care Provider: Dr. Nisha Salinas [facility] [place] consultants involved: Nurse coordinator-Alem Tee; MFM-Drs. Montana/Owen; Neonatology-Dr. Hager; Pediatric Surgery-Alem Garcia APRN-SHIPPING TECHNICIAN Diagnosis: Bowel dilation Planned surveillance: Routine OB care; Weekly BPP/NST; Released from [facility] on 01/01/2021 Delivery location: [facility] Delivery mode: No contraindication to vaginal delivery Desired Delivery GA: [id number] scheduled for January 22 at 9:00 am follow up: Per neonatology on 01/01/2021: Recommend evaluation after delivery for abdominal distention and obstructive series. If exam and x-ray are unremarkable, would allow to breast feed ad brianna demand and monitor tolerance. Infant may be able to stay in mother's room in this case. If initial exam or films are abnormal, or if not tolerating feeds, would admit to NICU for IVF and abdominal ultrasound. We discussed the possibility of needing transfer to for further radiologic evaluation (ie LGI), or for surgical evaluation if concerns for obstruction. Table Saw Operator: Undecided as of 01/01/2021 Autopsy indicated: Genetics note: Regulatory Leader Concerns: 12/04/2020-Patient reports a history of depression-no medications Care plan based on evaluation and is subject to change based on assessment. See Images or Cardiac under Chart Review for US/ ECHO/ MRI reports. Frequent headaches 09/20/2020 Assessment & Plan (11/15/2020 11:17 AM CDT): Returned over the past month, improve with snacking. Has a prescription for Magnesium that she has not picked up. Normotensive. [facility] recommendations: 1. Encouraged to picker/puller magnesium and take daily, discussed it works [...] not picked up. Has done some yoga. [facility] recommendations: 1. I encouraged her to alert us or OB if occur during . I further instructed her to follow up with her primary medical doctor should they begin to occur again following delivery. 2. We reviewed PTL warnings and kick counts. 3. I encouraged her to picker/puller her PT referral from her primary OB. I also reviewed home interventions for sciatica to try for relief. Encounters Date Type Department Care Team Description 08/03/2024 9:42 AM CDT - 08/03/2024 11:59 PM CDT Hospital Encounter [facility] LAB OP DRAW STATION [address] [place] [address] Discharge Disposition: Home or Self Care 08/03/2024 8:20 AM CDT Office Visit [facility] - Endocrinology [address] [place] [phone] Ian Castillo MD Hypothyroidism, unspecified type (Primary Dx); Acquired hypothyroidism 08/03/2024 Travel 07/27/2024 Refill [facility] - Endocrinology [address] [place] [phone] Ian Castillo MD MEDICATION REFILL 06/17/2024 Telephone [facility] - Centralized Scheduling [facility] [place] [phone] Jack Johnson MD Appointment (06/17--Spoke to patient-aware of Taha's 08/12 EOV appt- reach out to patient when there is [id number]) 06/17/2024 Telephone [facility] - Centralized Scheduling [address] [place] [address] Jack Johnson MD Reschedule Appointment (06/17-Spoke to patient-aware of [facility]'s 08/12 EOV cancellatiion-advised of no availability-telephone encounter to the Dept to reach out. [id number]) 05/28/2024 Orders Only [facility] - Endocrinology [address] [place] [phone] Ian Castillo MD Hypothyroidism, unspecified type 05/12/2024 9:30 AM COOK CHILL TECHNICIAN Office Visit [facility] - Internal Med [address] [place] [phone] Papular rash, localized (Primary Dx) 05/12/2024 Travel 05/12/2024 Orders Only [facility] INTERNAL MED [address] [place] [address] Jack Johnson MD Hypothyroidism, unspecified type from Last 3 Months Immunizations Immunization Administration Dates Next Due Covid Pfizer primary [...] Date Recorded Patient Health Questionnaire-2 Score 0 08/03/2024 Comments No Sex and Gender Information Value Date Recorded Sex Assigned at Female 10/08/2022 8:13 AM CDT Legal Sex Female 4:29 PM COOK CHILL TECHNICIAN Gender Identity Female 10/08/2022 8:13 AM CDT Sexual Orientation Not on file Occupation Industry Job Start Date Job End Date Not on file Not on file Not on file Not on file Last Filed Vital Signs Vital Sign Reading Time Taken Comments Blood Pressure 98/63 08/03/2024 8:43 AM CDT Pulse 88 08/03/2024 8:43 AM CDT Temperature 36.6 C (97.8 F) 09/18/2023 3:07 PM CDT Respiratory Rate 16 05/29/2023 3:26 PM COOK CHILL TECHNICIAN Oxygen Saturation 98% 08/03/2024 8:43 AM CDT Inhaled Oxygen Concentration - - Weight 73 kg (161 lb) 08/03/2024 8:43 AM CDT Height 170.2 cm (5' 7 ) 05/12/2024 9:30 AM COOK CHILL TECHNICIAN Body Mass Index 25.22 05/12/2024 9:30 AM COOK CHILL TECHNICIAN Plan of Treatment Upcoming Encounters Date Type Department Care Team (Late st Contact Info) Description 12/14/2024 9:00 AM CDT Office Visit [facility] - Endocrinology [address] [place] [address], [facility] [place] [address] Ian Castillo MD [address] [place] [address] [place] [phone] Health Maintenance Due Date Last Done Comments HEPATITIS B VACCINE (1 of 3 - 19+ 3-dose series) 2013 PNEUMOCOCCAL VACCINE (1 of 2 - PCV) 2013 COVID-19 VACCINE (1 - 2023-2 5 season) 2023 PAP SMEAR 03/13/2024 03/13/2021 (Done Outside Per Patient) INFLUENZA VACCINE (Season Ended) 2024 03/14/2017 DTAP/TDAP/TD VACCINES (2 - T d or Tdap) 01/24/2031 01/24/2021 ZOSTER VACCINE (1 of 2) 2044 HEPATITIS C SCREENING Completed 05/14/2022 (Done Outside Per Report) HIV SCREENING Completed 05/23/2022 (Done Outside Per Report) DEPRESSION SCREENING Completed 08/03/2024, 05/29/19 24 HIB VACCINE Aged Out No longer eligi [...] on patient's age to complete this topic Procedures Procedure Name Priority Date/Time Associated Diagnosis Comments T4 TOTAL Routine 08/03/2024 11:02 AM CDT Hypothyroidism, unspecified type TSH Routine 08/03/2024 11:02 AM CDT Hypothyroidism, unspecified type from Last 3 Months Results * (ABNORMAL) TSH (08/03/2024 11:02 AM CDT) TSH 7.348(H) 0.350 - 4.940 uIU/mL 08/03/2024 12:31 PM CDT [facility] Blood BLOOD SPECIMEN / Unknown Lab Venipuncture / Unknown 08/03/2024 11:02 AM CDT 08/03/2024 11:21 AM CDT Ian Castillo MD LAB - CHEMISTRY ORDERABLES Final Result Performing Organization Address [facility]/State/ZIP Co de Phone Number [address] [address], [facility] [phone] * T4 TOTAL (08/03/2024 11:02 AM CDT) T4 Total 11.50 4.50 - 11.70 ug/dL 08/05/2024 6:01 PM CDT [employer] ([facility]) Comment: Performed By: [employer] [address] [place] [id number] Pneumatic Tester Mechanic: Ricco Thompson MD, PhD CLIA Number: [id number] Blood BLOOD SPECIMEN / Unknown Lab Venipuncture / Unknown 08/03/2024 11:02 AM CDT 08/03/2024 11:09 AM CDT Ian Castillo MD LAB - CHEMISTRY ORDERABLES Final Result JANINE ALVARADO ([facility]) [address] [place] [address], [facility] from Last 3 Months Insurance [facility] Advance Directives * Full Code (Latest Code Status on File) Date Activated Date Inactivated Comments 01/22/2021 10:29 AM 01/25/2021 2:48 PM Care Teams Quantitative Strategy Analyst Relationship Specialty Start Date End Date Shelbi Perez MD [address] [facility] INT MED [place] [phone] PCP - General Internal Medicine 06/21/24
[2024-08-10 13:40] LABS: Glucose 1 Hour PP 50gm Dose 111 mg/dL
[2024-08-10 13:47] LABS: Hematocrit 36.5 % (37.0-47.0); Hemoglobin 11.7 g/dL (12.0-15.0); Mean Corpuscular HGB Conc 32.1 g/dl (32-36); Mean Corpuscular Hemoglobin 29.5 pg (26-34); Mean Corpuscular Volume 92.2 fl (80-100); Mean Platelet Volume 11.8 fl (7.4-10.4); Platelet Count Result 122 k/mm3 (150-375); Red Blood Count 3.96 M/mm3 (4.2-5.4); Red Cell Distribution Width 13.2 % (11.5-14.5); White Blood Count 6.2 K/mm3 (4.5-10.0)
[2024-08-10 14:08] LABS: Syphilis IgG/IgM Antibody Negative (Negative)
[2024-08-10 14:19] LABS: HIV 1/2 Ab P24 Ag Result Negative (Negative)
== END 2024-08-10 11:42 | disposition home or self-care (01) ==
LOC: ANHLAB 11:43
PROVIDERS: Visit Provider Student in an Organized Health Care Education/Training Program
DX: O99.281 Endocrine, nutritional and metabolic diseases complicating pregnancy, first trimester (principal); E03.9 Hypothyroidism, unspecified; Z3A.00 Weeks of gestation of pregnancy not specified
CPT/HCPCS: 36415; 82947; 84443; 85027; 86593; 86703; G0432

== ENCOUNTER 2024-09-28 13:43 | Outpatient (CLI) | payer OTHER, SELFPAY ==
--- OUTSIDE RECORDS SUMMARY | 2024-09-28 14:28 | XMS_ITS | Encounter Summary ---
Author Organization [facility] Address [address] [facility] [place] [address] Care Team Providers Care Health Therapist Name Role Phone Shelbi Perez MD Primary Care Provider Encounter Details Date Type Department Care Team (Late st Contact Info) Description 09/24/2024 Orders Only [facility] - Endocrinology [address] [place] [address], [place] [address] Ian Castillo MD [address] [place] [address] [place] [phone] Hypothyroidism, unspecified type Social History Tobacco Use Types Packs/Day Years Used Date Smoking Tobacco: Never Smokeless Tobacco: Never Alcohol Use Standard Drinks/Week Comments Not Currently 0 (1 standard drink = 0.6 oz pur e alcohol) PHQ-2 Answer Date Recorded Patient Health Questionnaire-2 Score 0 08/03/2024 Comments No Sex and Gender Information Value Date Recorded Sex Assigned at Female 10/08/2022 8:13 AM CDT Legal Sex Female 4:29 PM MANAGER SMALL BUSINESS Gender Identity Female 10/08/2022 8:13 AM CDT Sexual Orientation Not on file Occupation Industry Job Start Date Job End Date Not on file Not on file Not on file Not on file documented as of this encounter Functional Status * Is person deaf or have serious hearing difficulty? Answer Date of Assessment Author No 01/23/2021 2:15 AM CDT Nisha Myrick RN * Is person blind or have serious difficulty seeing? Answer Date of Assessment Author No 01/23/2021 2:15 AM CDT Nisha Myrick RN * Does person have serious difficulty walking/climbing stairs? Answer Date of Assessment Author No 01/23/2021 2:15 AM CDT Nisha Myrick RN * Does person have difficulty dressing/bathing? Answer Date of Assessment Author No 01/23/2021 2:15 AM CDT Nisha Myrick RN * Does person have difficulty doing errands alone? Answer Date of Assessment Author No 01/23/2021 2:15 AM CDT Nisha Myrick RN documented as of this encounter Mental Status * Does person have difficulty concentrating/remembering/making decisions? Answer Entry Date Author No 01/23/2021 2:15 AM CDT Nisha Myrick RN documented in this encounter Plan of Treatment Upcoming Encounters Date Type Department Care Team (Late st Contact Info) Description 12/14/2024 9:00 AM CDT Office Visit [facility] - Endocrinology [address] [facility], [place] [phone] Ian Castillo MD [address] [place] [address] [address] [place] [phone] documented as of this encounter Visit Diagnoses Diagnosis Hypothyroidism, unspecified type documented in this encounter Care Teams Health Therapist Relationship Specialty Start Date End Date Shelbi Perez MD [address] [facility] DIV OF INT MED [address] [place] [phone] PCP - General Internal Medicine 06/21/24 documented as of this encounter
--- OUTSIDE RECORDS SUMMARY | 2024-09-28 14:28 | XMS_ITS | Clinical Summary ---
Author Organization [facility] [employer] Address [address] [facility] [place] [address] Care Team Providers Care Husbandry Technician Name Role Phone Shelbi Perez MD Primary Care Provider [phone] Source Comments [facility] and Associated Physician Practices is amultiple site organization consisting of ambulatory clinics and hospital sitesin [place], [place], [place] and [place]. This disclosure is being madepursuant to the Care Everywhere program and may not contain all information available regarding this patient. Last updated 18.[facility] [employer] Allergies Active Allergy Reactions Criticality Noted Date [...] the dose every Friday 35 tablet 11 Active Active Problems Problem Noted Date Diagnosed [...] not had CF screening. AGA growth today. [facility] recommendations: 1. Ultrasound results reviewed with patient [...] risk of flare of thyroid dysfunction. [facility] Recommendations: 1. Continue levothyroxine at dose of 150 mcg daily 2. Continue aspirin 3. Repeat thyroid studies--requisition provided again; if again stable can re- check late in the 3rd trimester 4. Serial growth every 4 weeks 5. Warrants evaluation by Eye Care Professional or PCP in first 3 months ; [...] every 4 weeks 5. Warrants evaluation by Eye Care Professional or PCP in first 3 months Assessment & Plan (09/20/2020 3:11 PM CDT): Euthyroid. Elevated TPO ab may confer risk of flare of thyroid dysfunction. She did not report whether she had a visit with an Eye Care Professional today--previously initiated attempts to refer her. Recommendations: 1. Continue levothyroxine at dose of 150 mcg daily 2. Continue aspirin 3. Repeat thyroid studies in 4 weeks--requisition provided 4. Serial growth every 4 weeks 5. Warrants evaluation by Eye Care Professional or PCP in first 3 months Assessment & Plan (08/23/2020 5:07 PM CDT): Millicent does not believe she has ever seen an Eye Care Professional. Her primary care physician is managing her [...] Fernando was screened for depression using the [place] Depression Scale (EPDS) at her [facility] initial evaluation on 12/04/2020. Her initial score at baseline was 0. Based off of her score of 0, Millicent does not warrant follow up. Patient will continue to be screened throughout , at intervals no closer than two weeks, for continued surveillance and early identification of depression until delivery. Patient reports mental health history. Diagnoses includes depression. 01/01/2021-Follow up EPDS score=0. [facility], abnormality in pr egnancy, bowel dilation 11/22/2020 01/26/2021 Overview (01/03/2021): Images from the original note were not included. [facility] PATIENT--PLEASE CALL [phone] (ex 2) IF TRIAGED OR ADMITTED Care Provider: Dr. Nisha Salinas [facility] consultants involved: Nurse coordinator-Alem Tee; [facility]-Drs. Montana/Owen; Neonatology-Dr. Hager; Pediatric Surgery-Alem Garcia APRN-LUCIE Diagnosis: Bowel dilation Planned surveillance: Routine OB care; Weekly BPP/NST; Released from [facility] on 01/01/2021 Delivery location: [facility] Delivery mode: No contraindication to vaginal delivery Desired Delivery GA: [id number] scheduled for Friday, January 22 at 9:00 am follow up: [...] for surgical evaluation if concerns for obstruction. Senior Architectural Designer: Undecided as of 01/01/2021 Autopsy indicated: Genetics note: Sword Swallower Concerns: 12/04/2020-Patient reports a history of depression-no [...] she has not picked up. Normotensive. [facility] recommendations: 1. Encouraged to sampler pickup magnesium and take daily, discussed it works [...] picked up. Has done some yoga. [facility] recommendations: 1. I encouraged her to alert us or OB if occur during . I further instructed her to follow up with her primary medical doctor should they begin to occur again following delivery. 2. We reviewed PTL warnings and kick counts. 3. I encouraged her to sampler pickup her PT referral from her primary OB. I also reviewed home interventions for sciatica to try for relief. Encounters Date Type Department Care Team Description 09/24/2024 Orders Only [facility] - Endocrinology [address] [place] [address], [place] [address] Ian Castillo MD Hypothyroidism, unspecified type 08/27/2024 Orders Only [facility] - Endocrinology [address] [place] [phone] Ian Castillo MD Hypothyroidism, unspecified type 08/03/2024 9:42 AM CDT - 08/03/2024 11:59 PM CDT Hospital Encounter [facility] LAB OP DRAW STATION [address] [place] [address] Discharge Disposition: Home or Self Care 08/03/2024 8:20 AM CDT Office Visit [facility] - Endocrinology [address] [place] [phone] Ian Castillo MD Hypothyroidism, unspecified type (Primary Dx); Acquired hypothyroidism 08/03/2024 Travel 07/27/2024 Refill [facility] - Endocrinology [address] [place] [phone] Ian Castillo MD MEDICATION REFILL from Last 3 Months Immunizations Immunization Administration Dates Next Due [employer] primary monoval ent 12+ yr 0.3mL Purple [...] AM CDT Legal Sex Female 4:29 PM CONTINUOUS IMPROVEMENT ENGINEER Gender Identity Female 10/08/2022 8:13 AM CDT [...] CDT Respiratory Rate 16 05/29/2023 3:26 PM CONTINUOUS IMPROVEMENT ENGINEER Oxygen Saturation 98% 08/03/2024 8:43 AM CDT Inhaled Oxygen Concentration - - Weight 73 kg (161 lb) 08/03/2024 8:43 AM CDT Height 170.2 cm (5' 7) 05/12/2024 9:30 AM CONTINUOUS IMPROVEMENT ENGINEER Body Mass Index 25.22 05/12/2024 9:30 AM CONTINUOUS IMPROVEMENT ENGINEER Plan of Treatment Upcoming Encounters Date Type Department Care Team (Late st Contact Info) Description 12/14/2024 9:00 AM CDT Office Visit [facility] - Endocrinology [address] [place] [address], [place] [address] Ian Castillo MD [address] [place] [address] [place] [phone] Health Maintenance Due Date Last Done Comments [...] - 4.940 uIU/mL 08/03/2024 12:31 PM CDT [facility] Blood BLOOD SPECIMEN / Unknown Lab Venipuncture / Unknown 08/03/2024 11:02 AM CDT 08/03/2024 11:21 AM CDT us Ian Castillo MD LAB - CHEMISTRY ORDERABLES Final Result Performing Organization Address [facility]/State/ZIP Co de Phone Number [address] [address], [facility] [phone] * T4 TOTAL (08/03/2024 11:02 AM CDT) T4 Total 11.50 4.50 - 11.70 ug/dL 08/05/2024 6:01 PM CDT [employer] ([facility]) Comment: Performed By: [employer] [address] [place] [address] Criminal Justice Social Worker: Ricco Thompson MD, PhD CLIA Number: [id number] Blood BLOOD SPECIMEN / Unknown Lab Venipuncture / Unknown 08/03/2024 11:02 AM CDT 08/03/2024 11:09 AM CDT us Ian Castillo MD LAB - CHEMISTRY ORDERABLES Final Result JANINE ALVARADO ([facility]) [place] [address], [facility] from Last 3 Months Insurance [facility] Advance Directives * Full Code (Latest Code Status on File) Date Activated Date Inactivated Comments 01/22/2021 10:29 AM 01/25/2021 2:48 PM Care Teams Husbandry Technician Relationship Specialty Start Date End Date Shelbi Perez MD [address] [place] [phone] PCP - General Internal Medicine 06/21/24
[2024-09-28 14:53] LABS: Basophils Percent Auto 0.3 % (0.2-1.2); Eosinophils Absolute Auto 0.1 K/mm3 (0-0.3); Eosinophils Percent Auto 1.4 % (0-4.4); Hematocrit 38.2 % (37.0-47.0); Hemoglobin 12.8 g/dL (12.0-15.0); Immature Granulocyte Absolute 0.02 K/mm3 (0.00-0.031); Immature Granulocyte Percent A 0.3 % (0-0.5); Lymphocytes Absolute Auto 1.34 K/mm3 (0.9-3.2); Lymphocytes Percent Auto 20.4 % (18.3-44.2); Mean Corpuscular HGB Conc 33.5 g/dl (32-36); Mean Corpuscular Hemoglobin 29.4 pg (26-34); Mean Corpuscular Volume 87.8 fl (80-100); Mean Platelet Volume 12.4 fl (7.4-10.4); Monocytes Absolute Auto 0.7 K/mm3 (0.1-0.6); Monocytes Percent Auto 10.6 % (2.6-8.5); Neutrophils Absolute Auto 4.4 K/mm3 (1.3-6.7); Platelet Count Result 129 k/mm3 (150-375); Red Blood Count 4.35 M/mm3 (4.2-5.4); Red Cell Distribution Width 13.4 % (11.5-14.5); White Blood Count 6.6 K/mm3 (4.5-10.0)
== END 2024-09-28 13:44 | disposition home or self-care (01) ==
PROVIDERS: Visit Provider Obstetrics & Gynecology
DX: Z34.90 Encounter for supervision of normal pregnancy, unspecified, unspecified trimester (principal)
CPT/HCPCS: 36415; 85025

== ENCOUNTER 2024-10-07 18:25 | Outpatient (CLI) | payer OTHER, SELFPAY ==
[2024-10-07 18:45] VITALS: BP 112/80; PULSE 80
[2024-10-07 19:00] VITALS: BP 118/68; PULSE 71
[2024-10-07 19:15] VITALS: BP 113/77; PULSE 84
[2024-10-07 19:30] VITALS: BP 107/71; PULSE 84
[2024-10-07 19:45] VITALS: BP 108/76; PULSE 81
== END 2024-10-07 20:15 | disposition home or self-care (01) ==
LOC: ANHOBOP 19:53 → ANHLDR 19:54
PROVIDERS: Visit Provider Obstetrics & Gynecology
DX: Z34.90 Encounter for supervision of normal pregnancy, unspecified, unspecified trimester (principal); Z3A.00 Weeks of gestation of pregnancy not specified
CPT/HCPCS: 99199

== ENCOUNTER 2024-10-22 06:16 | Inpatient (IN) | payer OTHER, SELFPAY ==
[2024-10-22] VITALS (140 sets, daily range): BP systolic 95–135; BP diastolic 46–94; PULSE 36–81; RESP 18; TEMP 36.1–36.7; O2SAT 89–100; BMI 22.1
--- OUTSIDE RECORDS SUMMARY | 2024-10-22 06:21 | XMS_ITS | Encounter Summary ---
Author Organization [facility] Address [address] [facility] [place] [address] Care Team Providers Care Casting Machine Operator Automatic Name Role Phone Shelbi Perez MD Primary Care Provider [phone] Encounter Details Date Type Department Care Team (Late st Contact Info) Description 10/22/2024 Orders Only [facility] - Endocrinology [address] [place] [address], [place] [address] Ian Castillo MD [address] [place] [address] [place] [phone] Hypothyroidism, unspecified type Social History Tobacco Use [...] AM CDT Legal Sex Female 4:29 PM EPIDEMIOLOGIST Gender Identity Female 10/08/2022 8:13 AM CDT [...] Visit [facility] - Endocrinology [address] [facility], [place] [phone] Ian Castillo MD [address] [place] [address] 2L [place] [phone] documented as of this encounter Visit Diagnoses Diagnosis Hypothyroidism, unspecified type documented in this encounter Care Teams Casting Machine Operator Automatic Relationship Specialty Start Date End Date Shelbi Perez MD [address] [facility] DIV OF INT MED [address] [place] [phone] PCP - General Internal Medicine 06/21/24 documented as of this encounter
--- OUTSIDE RECORDS SUMMARY | 2024-10-22 06:21 | XMS_ITS | Clinical Summary ---
Author Organization [facility] Address [address] [facility] [place] [address] Care Team Providers Care Manager Transition Name Role Phone Shelbi Perez MD Primary Care Provider [phone] Source Comments [facility] and Associated [facility]ician Practices is amultiple site organization consisting of ambulatory clinics and hospital sitesin [place], [place], [place] and [place]. This disclosure is being madepursuant to the Care Everywhere program and may not contain all information available regarding this patient. Last updated 18.[facility] Allergies Active Allergy Reactions Criticality Noted Date [...] not had CF screening. AGA growth today. [facility] recommendations: 1. Ultrasound results reviewed with [...] confer risk of flare of thyroid dysfunction. [facility] Recommendations: 1. Continue levothyroxine at dose of 150 mcg daily 2. Continue aspirin 3. Repeat thyroid studies--requisition provided again; if again stable can re- check late in the 3rd trimester 4. Serial growth every 4 weeks 5. Warrants evaluation by Sales Special Agent or PCP in first 3 months ; [...] every 4 weeks 5. Warrants evaluation by Sales Special Agent or PCP in first 3 months Assessment & Plan (09/20/2020 3:11 PM CDT): Euthyroid. Elevated TPO ab may confer risk of flare of thyroid dysfunction. She did not report whether she had a visit with an Sales Special Agent today--previously initiated attempts to refer her. Recommendations: 1. Continue levothyroxine at dose of 150 mcg daily 2. Continue aspirin 3. Repeat thyroid studies in 4 weeks--requisition provided 4. Serial growth every 4 weeks 5. Warrants evaluation by Sales Special Agent or PCP in first 3 months Assessment & Plan (08/23/2020 5:07 PM CDT): Millicent does not believe she has ever seen an Sales Special Agent. Her primary care physician is managing her [...] Fernando was screened for depression using the [place] Depression Scale (EPDS) at her [facility] initial evaluation on 12/04/2020. Her initial score at baseline was 0. Based off of her score of 0, Millicent does not warrant follow up. Patient will continue to be screened throughout , at intervals no closer than two weeks, for continued surveillance and early identification of depression until delivery. Patient reports mental health history. Diagnoses includes depression. 01/01/2021-Follow up EPDS score=0. [facility], abnormality in pr egnancy, bowel dilation 11/22/2020 01/26/2021 Overview (01/03/2021): Images from the original note were not included. [facility] PATIENT--PLEASE CALL [phone] (ex 2) IF TRIAGED OR ADMITTED Care Provider: Dr. Nisha Salinas [facility] consultants involved: Nurse coordinator-Alem Tee; [facility]-Drs. Montana/Owen; Neonatology-Dr. Hager; Pediatric Surgery-Alem Garcia APRN-LUCIE Diagnosis: Bowel dilation Planned surveillance: Routine OB care; Weekly BPP/NST; Released from [facility] on 01/01/2021 Delivery location: [facility] Delivery mode: No contraindication to vaginal delivery Desired Delivery GA: [id number] scheduled for Friday, January 22 at 9:00 [...] for surgical evaluation if concerns for obstruction. 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 See Images or Cardiac under Chart Review for US/ ECHO/ MRI reports. Frequent headaches 09/20/2020 Assessment & Plan (11/15/2020 11:17 AM CDT): Returned over the past month, improve with snacking. Has a prescription for Magnesium that she has not picked up. Normotensive. [facility] recommendations: 1. Encouraged to filler picker magnesium and take daily, discussed it [...] not picked up. Has done some yoga. [facility] recommendations: 1. I encouraged her to alert us or OB if occur during . I further instructed her to follow up with her primary medical doctor should they begin to occur again following delivery. 2. We reviewed PTL warnings and kick counts. 3. I encouraged her to filler picker her PT referral from her primary OB. I also reviewed home interventions for sciatica to try for relief. Encounters Date Type Department Care Team Description 10/22/2024 Orders Only [facility] - Endocrinology [address] [place] [phone] Ian Castillo MD Hypothyroidism, unspecified type 09/24/2024 Orders Only [facility] - Endocrinology [address] [place] [phone] aIn Castillo MD Hypothyroidism, unspecified type 08/27/2024 Orders Only [facility] - Endocrinology [address] [place] [phone] Ian Castillo MD Hypothyroidism, unspecified type 08/03/2024 9:42 AM CDT - 08/03/2024 11:59 PM CDT Hospital Encounter [facility] OP [facility]RAW [facility]ATION [address] [place] [address] Discharge Disposition: Home or Self Care 08/03/2024 8:20 AM CDT Office Visit [facility] - Endocrinology [address] [place] [phone] Ian Castillo MD Hypothyroidism, unspecified type (Primary Dx); Acquired hypothyroidism 08/03/2024 Travel 07/27/2024 Refill [facility] - Endocrinology [address] [place] [phone] Ian Castillo MD MEDICATION REFILL from Last 3 Months Immunizations Immunization Administration Dates Next Due [employer] 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 Gender Identity Female 10/08/2022 8:13 AM CDT [...] CDT Respiratory Rate 16 05/29/2023 3:26 PM TROLLEY COLLECTOR Oxygen Saturation 98% 08/03/2024 8:43 AM CDT Inhaled Oxygen Concentration - - Weight 73 kg (161 lb) 08/03/2024 8:43 AM CDT Height 170.2 cm (5' 7) 05/12/2024 9:30 AM TROLLEY COLLECTOR Body Mass Index 25.22 05/12/2024 9:30 AM TROLLEY COLLECTOR Plan of Treatment Upcoming Encounters Date Type Department Care Team (Late st Contact Info) Description 12/14/2024 9:00 AM CDT Office Visit [facility] - Endocrinology [address] [place] [address], [place] [phone] Ian Castillo MD [address] [place] [address] [place] [phone] Health Maintenance Due Date Last Done Comments HEPATITIS B VACCINE (1 of 3 - 19+ 3-dose series) 2013 PNEUMOCOCCAL VACCINE (1 of 2 - PCV) 2013 HPV VACCINE (1 - 3-dose SCDM series) 2021 COVID-19 VACCINE (1 - 2023-2 5 season) 2023 PAP SMEAR 03/13/2024 03/13/2021 (Done Outside Per Patient) INFLUENZA VACCINE (#1) 2024 03/14/2017 DTAP/TDAP/TD VACCINES (2 - T d or Tdap) 01/24/2031 01/24/2021 ZOSTER VACCINE (1 of 2) 2044 HEPATITIS C SCREENING Completed 05/14/2022 (Done Outside Per Report) HIV SCREENING Completed 05/23/2022 (Done Outside Per Report) DEPRESSION SCREENING Completed 08/03/2024, 05/29/19 HIB VACCINE Aged Out No longer eligi [...] - 4.940 uIU/mL 08/03/2024 12:31 PM CDT [facility] Blood BLOOD SPECIMEN / Unknown Lab Venipuncture / Unknown 08/03/2024 11:02 AM CDT 08/03/2024 11:21 AM CDT us Ian Castillo MD LAB - CHEMISTRY ORDERABLES Final Result [facility] [address] [place] [phone], [facility] [phone] * T4 TOTAL (08/03/2024 11:02 AM CDT) T4 Total 11.50 4.50 - 11.70 ug/dL 08/05/2024 6:01 PM CDT [employer] ([facility]) Comment: Performed By: [employer] [address] [place] [id number] Sports Photographer: Ricco Thompson MD, PhD CLIA Number: [id number] Blood BLOOD SPECIMEN / Unknown Lab Venipuncture / Unknown 08/03/2024 11:02 AM CDT 08/03/2024 11:09 AM CDT Ian Castillo MD LAB - CHEMISTRY ORDERABLES Final Result [facility] [employer] ([facility]) [address] [place] [address], [facility] from Last 3 Months Insurance [facility] Advance Directives * Full Code (Latest Code Status on File) Date Activated Date Inactivated Comments 01/22/2021 10:29 AM 01/25/2021 2:48 PM Care Teams Manager Transition Relationship Specialty Start Date End Date Shelbi Perez MD [address] [facility] INT [facility] [place] [phone] PCP - General Internal Medicine 06/21/24
--- NOTE | 2024-10-22 06:38 | P.PNAN_ITS ---
Anes - Eval Pre Procedure Procedure: labor epidural Date/Time: 10/22/24 06:38 Surgeon: bridgette Preop Diagnosis: pain during labor Pre Op Diagnosis: IOL Patient Data Age: 29 Gender: F Height: Weight: Last Vital Signs Pulse 65 10/22/24 06:36 BP 114/83 10/22/24 06:36 Allergies Allergy/AdvReac Type Severity Reaction Status Date / Time cefdinir Allergy Severe Hives / Verified 10/20/24 11:08 Red Face cephalexin Allergy Intermediate Itching Verified 10/20/24 11:08 Penicillins Allergy Intermediate Nausea Verified 10/20/24 11:08 clindamycin Allergy Rash Verified 10/20/24 11:08 Home Medications ?Medication ?Instructions ?Recorded ?Confirmed ?Type levothyroxine 125 mcg tablet 125 mcg PO DAILY #30 tabs 07/29/24 10/20/24 Rx vits no.126-ferrous fum 1 tablet PO DAILY #60 tabs 10/05/24 10/20/24 Rx 28 mg iron-folic acid 800 mcg tablet (Classic ) Patient hx anesthesia problems: none Family hx anesthesia problems: none Results Review: All pre-operative results and documents have been reviewed as part of the pre- operative evaluation. [facility] Past Medical History Medical History (Updated 10/22/24 @ 06:40 by Zoe Aviles CRNA) hemorrhage Arthritis Neuropathy Depression Anxiety Hypoglycemia Vaginal discharge Encounter for screening examination for sexually transmitted disease Encounter for removal of intrauterine contraceptive device 10/22/2018 Encounter for insertion of intrauterine contraceptive device 06/16/2018 History of hypothyroidism Family History Family History Father Hypertension Grandparent Marfan syndrome Social History Social History Smoking status: Never smoker Second hand tobacco smoke exposure: No Alcohol intake: never Substance use: never Do You Feel Safe in your Home?: Yes Lack of Transportation: No Lack of Food: Sometimes True Current Housing: Decline to Answer Concerned About Future Housing: Decline to Answer Difficulty Paying Gas/Electric Bills: Decline to Answer Difficulty Paying for Meds: Decline to Answer Currently Unemployed: Decline to Answer Education: Decline to Answer Difficulty w/ Childcare or Family Care: Decline to Answer Living arrangements: with family Occupation/Education: unemployed Gender identity (if verbalized by the patient): Female Sexual Orientation (if Verbalized by the Patient): Straight or Heterosexual Spiritual care concerns: No Exam Day of Procedure 10/22/24 06:38
[2024-10-22 07:07] LABS: Hematocrit 37.9 % (37.0-47.0); Hemoglobin 12.9 g/dL (12.0-15.0); Immature Granulocyte Percent A 0.4 % (0-0.5); Lymphocytes Absolute Auto 1.61 K/mm3 (0.9-3.2); Mean Corpuscular HGB Conc 34.0 g/dl (32-36); Mean Corpuscular Hemoglobin 29.6 pg (26-34); Mean Corpuscular Volume 86.9 fl (80-100); Nucleated Red Blood Cells Absolute Auto 0.000 K/mm3 (0.0-0.012); Nucleated Red Blood Cells Perc 0.0 % (0.0-0.2); Platelet Count Result 113 k/mm3 (150-375); Red Blood Count 4.36 M/mm3 (4.2-5.4); White Blood Count 5.6 K/mm3 (4.5-10.0)
--- NOTE | 2024-10-22 07:13 | P.HP_ITS ---
H&P: HPI History of Present Illness Date/Time: 10/22/24 07:30 Chief Complaint: elective IOL Narrative: Millicent is a 29yo @ 39.1wks who presents for elective IOL. She has had regular care. She has been having occasional contractions. No VB or LOF. Her is complicated by: - hypothyroid- levothyroxine... Checked Q trimester - gestational thrombocytopenia; 122k --> 129k - GBS positive Review of Systems Constitutional: Constitutional: Denies chills, Denies fever(s) and Denies hea dache(s) Eyes: Eyes: Denies change in vision ENT: Denies headache(s) Cardiovascular: Cardiovascular: Denies chest pain and Denies dyspnea Respiratory: Respiratory: Denies dyspnea Genitourinary: Genitourinary: Denies abnormal vaginal bleeding and Denies vaginal discharge Neurologic: Denies headache(s) Psychiatric: Psychiatric: Denies anxiety and Denies depression [facility] Past Medical History Medical History (Updated 10/22/24 @ 06:40 by Zoe Aviles CRNA) hemorrhage Arthritis Neuropathy Depression Anxiety Hypoglycemia Vaginal discharge Encounter for screening examination for sexually transmitted disease Encounter for removal of intrauterine contraceptive device 10/22/2018 Encounter for insertion of intrauterine contraceptive device 06/16/2018 History of hypothyroidism Family History Family History Father Hypertension Grandparent Marfan syndrome Social History Social History Smoking status: Never smoker Second hand tobacco smoke exposure: No Alcohol intake: never Substance use: never Do You Feel Safe in your Home?: Yes Lack of Transportation: No Lack of Food: Never True Current Housing: I Have Housing Concerned About Future Housing: No Difficulty Paying Gas/Electric Bills: YES Difficulty Paying for Meds: No Currently Unemployed: No Education: High School Diploma/GED Difficulty w/ Childcare or Family Care: No Living arrangements: with family Occupation/Education: unemployed Gender identity (if verbalized by the patient): Female Sexual Orientation (if Verbalized by the Patient): Straight or Heterosexual Spiritual care concerns: No Meds Home Medications and Allergies Home Medications ?Medication ?Instructions ?Recorded ?Confirmed ?Type levothyroxine 125 mcg tablet 125 mcg PO DAILY #30 tabs 07/29/24 10/20/24 Rx vits no.126-ferrous fum 1 tablet PO DAILY #60 tabs 10/05/24 10/20/24 Rx 28 mg iron-folic acid 800 mcg tablet (Classic ) Allergies Allergy/AdvReac Type Severity Reaction Status Date / Time cefdinir Allergy Severe Hives / Verified 10/20/24 11:08 Red Face cephalexin Allergy Intermediate Itching Verified 10/20/24 11:08 Penicillins Allergy Intermediate Nausea Verified 10/20/24 11:08 clindamycin Allergy Rash Verified 10/20/24 11:08 Exam Const: General: cooperative, healthy appearing, comfortable and no acute distress Orientation/consciousness: patient oriented x3 Resp: Effort & Inspection: normal respiratory effort Cardio: Rate: regular rate GI: GI Palp: No abdominal tenderness : Other: FHT's: 1_0's/ mod tim/ + accels/ no decels - cat 1 TOCO: ctxs q_min Cervix: Membranes: intact Presentation: cephalic Skin: General skin exam: normal color Neuro: General: patient oriented x3 Extrem: General: normal to inspection Psych: Appearance: grossly normal Affect: normal affect Attitude: cooperative Assessment and Plan Assessment and plan (1) Encounter for elective induction of labor: Code(s): Z34.90 - Encounter for supervision of normal , unspecified, unspecified trimester Status: Acute Plan - Admitted for induction of labor; risks and benefits discussed - Cervix favorable - Low dose pitocin per protocol - Will plan for AROM after epidural/antibiotics - Continuous monitoring - GBS positive; ampicillin - Anesthesia consult PRN pain
[2024-10-22 07:53] LABS: Syphilis IgG/IgM Antibody Non-Reactive (Nonreactive)
[2024-10-22] MEDS: OXYTOCIN 30 UNITS/NS 500 ML 30 UNITS/500 ML BAG IV CONT (08:04)
[2024-10-22] MEDS: LACTATED RINGERS 1,000 ML 125 ML IV CONT (08:05)
[2024-10-22] MEDS: VANCOMYCIN 1,250 MG/NS 250 ML 1,250 MG/250 ML BAG 166.67 MG IVPB (08:05)
--- NOTE | 2024-10-22 12:31 | PM.OBPNLAB ---
Pain Control Date/time seen: 10/22/24 12:31 Pain control: epidural Pelvic Exam Dilation (cm): 4 (.5) Effacement (%): 70 station: -2 Amniotic membrane status: Ruptured (clear 1230) Contractions Monitor mode: External Contraction frequency: 2 (-3) Status status: Category l Assessment and Plan Pitocin rate (mU/min): 8 Assessment: induction ongoing Plan: continuous present management
--- NOTE | 2024-10-22 16:26 | PM.OBPRVD ---
OB - Vaginal Delivery Note Procedure Delivery date: 10/22/24 Events: Positive Group B Strep (GBS) and Other (hypothyroidism, gestational thrombocytopenia) Induction method: Per Pitocin Protocol Delivery augmentation: Rupture of Membranes Delivery monitor: External FHT and Internal Uterine Route of delivery: Episiotomy description: None Laceration Description: Periurethral (bilateral) Delivery repair: vicryl Specimen: No Quantitative Blood Loss (ml): 150 Anesthesia type: Epidural Disposition: Floor Complications: No immediate complications [place] Baby Date of : 10/22/24 Time of : 14:12 Gestational Age by Date: 39 (1) Infant gender: Male presentation: vertex Placenta delivery description: Expressed Cord Vessel Description: 3 Vessels score one minute: 8 score five minutes: 9 Narrative: Millicent progressed to complete dilation with strong desire to push. She pushed for approximately 3-4 contractions with good maternal effort. She delivered the head over intact perineum. No nuchal cord was palpated. She easily delivered the infant's shoulders and body without complication. The infant was immediately placed skin to skin and had spontaneous cry. Delayed cord clamping was performed. The umbilical cord was then doubly clamped and cut. Segment of the cord was collected for cord gases. The remaining cord blood was collected for typing. With Pitocin running and gentle downward traction on the cord, the placenta delivered without complications. Bimanual massage was performed and good uterine tone with minimal bleeding was noted. She was examined and bilateral periurethral lacerations were identified and hemostasis was noted. They were repaired in the normal fashion using 3-0 Vicryl. Sponge, lap, instrument, and needle counts were correct at the end of the procedure. Mom and baby were left bonding in the birthing suite in stable condition.
[2024-10-22] MEDS: OXYTOCIN 30 UNITS/NS 500 ML 30 UNITS/500 ML BAG 125 UNITS IV CONT (16:48)
[2024-10-22] MEDS: LORATADINE 10 MG TABLET PO (17:30)
--- NOTE | 2024-10-22 19:03 | OBPPTRN ---
Patient transferred to post room #280 via wheelchair. Support person present. Oriented to unit, room, information board, rooming in, admission packet and security measures. Patient verbalizes understanding.
[2024-10-22] MEDS: IBUPROFEN 600 MG TABLET PO (21:00)
[2024-10-22] MEDS: ACETAMINOPHEN 325 MG TABLET 650 MG PO (23:58)
[2024-10-23 00:25] VITALS: BP 104/74; PULSE 86; RESP 16; TEMP 36.8; O2SAT 97
[2024-10-23] MEDS: IBUPROFEN 600 MG TABLET PO (03:29)
[2024-10-23] MEDS: SIMETHICONE 80 MG TAB.CHEW PO (03:31)
[2024-10-23 04:00] VITALS: BP 92/59; PULSE 56; RESP 16; TEMP 36.9; O2SAT 97
[2024-10-23 06:03] LABS: Hematocrit 36.8 % (37.0-47.0); Hemoglobin 12.1 g/dL (12.0-15.0); Immature Platelet Fraction Pct 12.1 % (0.9-11.2); Mean Corpuscular HGB Conc 32.9 g/dl (32-36); Mean Corpuscular Hemoglobin 29.8 pg (26-34); Mean Corpuscular Volume 90.6 fl (80-100); Platelet Count Result 92 k/mm3 (150-375); Red Blood Count 4.06 M/mm3 (4.2-5.4); White Blood Count 7.2 K/mm3 (4.5-10.0)
[2024-10-23 07:41] VITALS: BP 99/65; PULSE 65; RESP 16; TEMP 36.9; O2SAT 96
--- NOTE | 2024-10-23 07:45 | P.PNOB_ITS ---
OB - PN: Subj Subjective Date/time seen: 10/23/24 07:45 Narrative: PPD#1 Millicent reports doing well today. 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 Her pain is controlled. She is tolerating regular diet, voiding, passing gas, and ambulating without issues. She is breast feeding. She would like her son circumcised. OB - PN: Obj Data Labs 10/23/24 03:38 Labs: Laboratory Results - last 24 hr 10/22/24 10/23/24 06:32 03:38 WBC 7.2 RBC 4.06 L Hgb 12.1 Hct 36.8 L MCV 90.6 MCH 29.8 MCHC 32.9 RDW 13.7 Plt Count 92 L MPV 13.1 H % Immature Plt Fraction 12.1 H Syphilis IgG/IgM Ab Non-reactive Blood Type A Positive Antibody Screen Negative OB - PN A/P Assessment and Plan (1) Normal vaginal delivery of fourth : Code(s): O80 - Encounter for full-term uncomplicated delivery Status: Acute Plan day: 1 Plan: routine care Comments: - PO pain meds - Regular diet - Ambulation and hydration encouraged - Continue putting baby to breast q2-3hr Time Spent With Patient Time: Total time spent is greater than 50% in coordination of care (as documented) at patient's floor/unit and/or counseling patient: Review of Systems 2 Constitutional: Constitutional: Denies chills, Denies fever(s) and Denies headache(s) Eyes: Eyes: Denies change in vision ENT: Denies dizziness and Denies headache(s) Cardiovascular: Cardiovascular: Denies chest pain, Denies palpitations and Denies dyspnea Respiratory: Respiratory: Denies cough and Denies dyspnea Gastrointestinal: Gastrointestinal: Denies nausea and Denies vomiting Neurologic: Denies dizziness and Denies headache(s) Endocrine: Endocrine: Denies palpitations Exam 2 Const: General: cooperative, comfortable and no acute distress O rientation/consciousness: patient oriented x3 Resp: Effort & Inspection: normal respiratory effort Auscultation: clear to auscultation bilaterally Cardio: Rate: regular rate GI: Inspection: non-distended GI Palp: No abdominal tenderness and Yes Soft to palpation Auscultation: normal bowel sounds : Other: fundus firm Skin: General skin exam: normal color Neuro: General: patient oriented x3 Extrem: General: normal to inspection Psych: Appearance: grossly normal Affect: normal affect Attitude: c ooperative
[2024-10-23] MEDS: MULTIVIT/MIN/PREN/FOL AC/IRON TABLET 1 TAB PO (08:08)
[2024-10-23] MEDS: ACETAMINOPHEN 325 MG TABLET 650 MG PO ×2 (08:08→22:15)
[2024-10-23] MEDS: LEVOTHYROXINE SODIUM 150 MCG TABLET PO (08:23)
--- NOTE | 2024-10-23 08:30 | PC.NURSE ---
Primary RN notified LC that patient was starting a feeding. Patient complains of soreness on both nipples and was educated that a deep latch will resolve most issues with nipple pain. When entering the room, baby was unswaddled in the crib and mom was eating breakfast. She states that baby latched for awhile on the right breast and then did a few minutes on the left breast. She says that she did notice when baby had a deeper latch with more breast tissue in his mouth that she does not feel as much pain with feeding. Patient is encouraged to call out at next feeding so that a latch may be observed. Primary RN updated.
--- NOTE | 2024-10-23 15:29 | PCCCNOTE ---
[facility] consult for financial resources. Met with pt. who reports this is her 4th baby. Pt. has an 8 year old boy who is with his father([place]) while she is in hospital. Pt. also has 3 and 2 year olds, who are with pt's mother and father. Pt. reports has been with FOB for 7 years and he is FOB of 3, 2, and . Pt. reports feels safe around both FOBs. Pt. reports her mother and father are very supportive and live in [place] as well. Pt. reports has baby supplies, but does ask if RN can provide any baby bottles upon discharge; RN aware. Pt. reports establishing with both WIC and [employer] [place]. 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 Pt. denies drug use, and DCFS involvement. Pt. was provided with [facility] Energy Assistance, Financial, and resources. [facility] aware of visit.
[2024-10-23 16:54] VITALS: BP 99/69; PULSE 79; RESP 16; TEMP 36.7; O2SAT 97
[2024-10-23 20:00] VITALS: BP 111/62; PULSE 77; RESP 14; TEMP 36.7; O2SAT 99
[2024-10-24] MEDS: LEVOTHYROXINE SODIUM 150 MCG TABLET PO (07:12)
[2024-10-24 07:15] VITALS: BP 98/57; PULSE 64; RESP 16; TEMP 36.7; O2SAT 97
[2024-10-24] MEDS: IBUPROFEN 600 MG TABLET PO (07:35)
--- NOTE | 2024-10-24 08:00 | PM.OBDSVD ---
DS: Admitting Diagnosis Discharge Date 10/24/24 Admitting Diagnosis induction of labor GBS positive DS: Discharge Diagnosis Discharge Diagnosis (1) Normal vaginal delivery of fourth : Code(s): O80 - Encounter for full-term uncomplicated delivery Status: Acute OB - DS: Summary OB Procedures : Ultrasound OB Procedures Intrapartum: Spontaneous Vag Delivery OB Procedures: : None Peripartum Data Infant Delivery Method: Natural Vaginal Laceration Description: Periurethral (bilateral) Episiotomy description: None complications: none 1: Gender: Male Disposition of : home Status at Discharge Functional status at discharge: independent ambulation Overall status at discharge: patient is back to baseline Time Spent with Patient Time attestation: Total time spent providing and/or coordinating discharge services: Exam Const: General: cooperative, comfortable and no acute distress Orientation/consciousness: patient oriented x3 Resp: Effort & Inspection: normal respiratory effort Auscultation: clear to auscultation bilaterally Cardio: Rate: regular rate GI: Inspection: non-distended GI Palp: No abdominal tenderness and Yes Soft to palpation Auscultation: normal bowel sounds : Other: fundus firm Skin: General skin exam: normal color Neuro: General: patient oriented x3 Extrem: General: normal to inspection Psych: Appearance: grossly normal Affect: normal affect Attitude: cooperative Discharge Plan Discharge Attending physician on discharge: Nisha Salinas Discharging Clinician: Nisha Salinas Anticipated Discharge Date/Time: 10/24/24 16:00 Patient Disposition: Home Activity: may shower and pelvic rest Diet: regular Patient Language: Andorran Stand Alone Forms: General Discharge Information Follow-up/Referrals: Nisha Salinas MD [Physician] - 4 Weeks Discharge Medications: New ibuprofen 800 mg tablet 800 mg PO TID Qty: 30 0RF acetaminophen 500 mg tablet 1,000 mg PO TID Qty: 60 0RF docusate sodium [Colace] 100 mg capsule 100 mg PO BID Qty: 90 0RF Continued levothyroxine 125 mcg tablet 125 mcg PO DAILY Qty: 30 2RF Classic 28 mg iron- 800 mcg tablet 1 tablet PO DAILY Qty: 60 2RF Rx Instructions: any vitamin covered by insurance is ok to fill Date of admission: 10/22/24 06:16 Primary Care Provider: PHYSICIAN,PLUG AND MOLD FINISHER Admitting Provider: Nisha Salinas Attending physician on admission: Nisha Salinas Condition: Stable
[2024-10-24] MEDS: MULTIVIT/MIN/PREN/FOL AC/IRON TABLET 1 TAB PO (09:41)
[2024-10-24] MEDS: DOCUSATE SODIUM 100 MG CAPSULE PO (09:41)
[2024-10-24] MEDS: ACETAMINOPHEN 325 MG TABLET 650 MG PO (11:14)
[2024-10-26 09:27] VITALS: BP 120/71; PULSE 78; RESP 18; TEMP 36.7; O2SAT 100
== END 2024-10-24 16:18 | disposition home or self-care (01) | DRG 560 ==
LOC: ANHLDR 06:19 → ANHOB2 19:05
PROVIDERS: Admitting Provider Obstetrics & Gynecology; Visit Provider Obstetrics & Gynecology
DX: O99.284 Endocrine, nutritional and metabolic diseases complicating childbirth (principal); E03.9 Hypothyroidism, unspecified; O99.12 Other diseases of the blood and blood-forming organs and certain disorders involving the immune mechanism complicating childbirth; D69.6 Thrombocytopenia, unspecified; O99.824 Streptococcus B carrier state complicating childbirth; O71.82 Other specified trauma to perineum and vulva; Z3A.39 39 weeks gestation of pregnancy; Z37.0 Single live birth
CPT/HCPCS: 36415; 85025; 85027; 85055; 86593; 86850; 86900; 86901; A9270; J1200; J2590; J2795; J3373; J7120

== ENCOUNTER 2024-11-24 12:50 | Emergency (ER) | payer OTHER, SELFPAY ==
[2024-11-24 13:06] VITALS: BP 101/67; PULSE 90; RESP 16; TEMP 36.9; O2SAT 99
[2024-11-24 13:26] LABS: EDSTREPNEGPOS1 Positive (Negative)
--- NOTE | 2024-11-24 13:32 | ED.GENADULT ---
HPI - General Adult General Chief complaint: Upper Respiratory Infection Stated complaint: fever symptoms Source: patient Mode of arrival: ambulatory Limitations: no limitations History of Present Illness HPI narrative: Pt presents with c/o sore throat, tactile fever. Sx began yesterday, resolved and then returned today. Reports her children have similar sx but no dx. No tx initiated [employer]. She is her 1 month old. No additional complaints. Related Data Home Medications ?Medication ?Instructions ?Recorded ?Confirmed ?Last Taken ?Type docusate sodium 100 mg capsule mg PO 11/24/24 Unknown History levothyroxine 150 mcg tablet mcg 11/24/24 Unknown History vit no.95-ferrous tablet PO 11/24/24 Unknown History fumarate 28 mg-folic acid 800 mcg tablet () Allergies Allergy/AdvReac Type Severity Reaction Status Date / Time cefdinir Allergy Severe Hives / Verified 11/24/24 13:00 Red Face cephalexin Allergy Intermediate Itching Verified 11/24/24 13:00 clindamycin Allergy Rash Verified 11/24/24 13:00 Penicillins AdvReac Intermediate Nausea Verified 11/24/24 13:00 Review of Systems Review of Systems: CONSTITUTIONAL: Reports fever, denies body aches, chills, or sweats. EYES: Denies visual changes, redness, or discharge. ENT: Reports sore throat, Denies rhinorrhea, congestion or otalgia. CARDIOVASCULAR: Denies chest pain, palpitations, or edema. RESPIRATORY: Denies cough or dyspnea. GASTROINTESTINAL: Denies abdominal pain, nausea, vomiting, or diarrhea. GENITOURINARY: Denies dysuria or hematuria. SKIN: Denies rash, itching, or wounds. MUSCULOSKELETAL: Denies back pain, joint pain, or myalgia. NEUROLOGIC: Denies headache, numbness, tingling, or weakness. PSYCH: Denies depression or anxiety. All systems reviewed & are unremarkable except as noted in HPI and below PMFSH Past Medical History Medical History hemorrhage Arthritis Neuropathy Depression Anxiety Hypoglycemia Vaginal discharge Encounter for screening examination for sexually transmitted disease Encounter for removal of intrauterine contraceptive device 10/22/2018 Encounter for insertion of intrauterine contraceptive device 06/16/2018 History of hypothyroidism Family History Family History Father Hypertension Grandparent Marfan syndrome Social History Social History Smoking status: Never smoker Second hand tobacco smoke exposure: No Alcohol intake: never Substance use: never Do You Feel Safe in your Home?: Yes Lack of Transportation: No Lack of Food: Never True Current Housing: I Have Housing Concerned About Future Housing: No Difficulty Paying Gas/Electric Bills: YES Difficulty Paying for Meds: No Currently Unemployed: No Education: High School Diploma/GED Difficulty w/ Childcare or Family Care: No Living arrangements: with family Occupation/Education: unemployed Gender identity (if verbalized by the patient): Female Sexual Orientation (if Verbalized by the Patient): Straight or Heterosexual Spiritual care concerns: No Exam Narrative: GENERAL: Well-appearing, well-nourished, and in no acute distress. HEAD: Normocephalic, atraumatic. EYES: EOMI. No redness or drainage. Conjunctivae normal. ENT: Tonsils are 2+ bilaterally with moderate erythema, exudate. Mild posterior pharyngeal erythema. Mucous membranes pink and moist. Nares clear. No rhinorrhea. TMs normal bilaterally. Uvula midline. NECK: Normal AROM. Supple. No lymphadenopathy. CHEST: No respiratory distress. Clear to auscultation. HEART: Regular rate and rhythm. No murmur appreciated. Normal peripheral pulses. MUSCULOSKELETAL: No bony tenderness. EXTREMITIES: Normal range of motion. No edema. SKIN: Warm, dry, no rash. Capillary refill normal. Normal skin turgor. NEURO: No focal deficits. Alert and oriented x3. Gait steady. PSYCH: Normal affect. No signs of depression or anxiety. Course Course Level of Care: Express Care Visit Vital Signs Vital signs: Vital Signs Temperature 98.4 F 11/24/24 13:06 Pulse Rate 90 11/24/24 13:06 Respiratory Rate 16 11/24/24 13:06 Blood Pressure 101/67 11/24/24 13:06 Pulse Oximetry 99 11/24/24 13:06 Temperature 98.4 F 11/24/24 13:06 Pulse Rate 90 11/24/24 13:06 Respiratory Rate 16 11/24/24 13:06 Blood Pressure 101/67 11/24/24 13:06 Pulse Oximetry 99 11/24/24 13:06 Medical Decision Making Vital Signs Vital Signs: Vital Signs Temperature 98.4 F 11/24/24 13:06 Pulse Rate 90 11/24/24 13:06 Respiratory Rate 16 11/24/24 13:06 Blood Pressure 101/67 11/24/24 13:06 Pulse Oximetry 99 11/24/24 13:06 Temperature 98.4 F 11/24/24 13:06 Pulse Rate 90 11/24/24 13:06 Respiratory Rate 16 11/24/24 13:06 Blood Pressure 101/67 11/24/24 13:06 Pulse Oximetry 99 11/24/24 13:06 Lab Data Lab results reviewed: Yes I reviewed the patient's lab results. Labs: Lab Results 11/24/24 Range/Units 13:21 POC Grp A Strep Screen Positive (Negative) Discharge Plan Discharge Clinical Impression: Pharyngitis due to group A beta hemolytic Streptococci Patient Disposition: Home Condition: Stable Instructions: Antibiotic Form, Strep Throat (DC) Additional Instructions: Go straight to ER should your symptoms become worse or should any new symptoms develop Patient Language: Kinyarwanda Prescriptions: New azithromycin 500 mg tablet 500 mg PO DAILY 5 Days Qty: 5 0RF No Action levothyroxine 150 mcg tablet docusate sodium 100 mg capsule PO PNV no.95-ferrous fumarate-FA [] 28 mg iron- 800 mcg tablet PO Follow-up/Referrals: PHYSICIAN,ARTIST MANAGER [Primary Care Provider] - 11/24/24 Time of Disposition: 13:34
--- NOTE | 2024-11-24 14:07 | PC.NURSE ---
1342- SIGN SHOP SUPERVISOR in to talk with patient about allergies, but pt and are asleep and mother is snoring, so we dimmed lights to let her rest for a little while.
== END 2024-11-24 14:05 | disposition home or self-care (01) ==
PROVIDERS: Emergency Provider Registered Nurse
DX: J02.0 Streptococcal pharyngitis (principal); O99.285 Endocrine, nutritional and metabolic diseases complicating the puerperium; E03.9 Hypothyroidism, unspecified; O90.89 Other complications of the puerperium, not elsewhere classified; M19.90 Unspecified osteoarthritis, unspecified site
CPT/HCPCS: 87880; 99213; G0463

== ENCOUNTER 2024-12-12 11:26 | Emergency (ER) | payer OTHER, SELFPAY ==
--- NOTE | 2024-12-12 11:42 | ED.URI ---
HPI - URI/Sore Throat General Chief Complaint: Upper Respiratory Infection Stated Complaint: Bodyaches Time Seen by Provider: 12/12/24 11:42 Source: patient Mode of arrival: ambulatory Limitations: no limitations History of Present Illness HPI Narrative: 29-year-old female presents with complaint of runny nose, body aches fatigue started this morning. Treated for strep throat 2 weeks ago. No sore throat today. Afebrile. All systems reviewed and negative except as noted above. Related Data Home Medications ?Medication ?Instructions ?Recorded ?Confirmed ?Last Taken ?Type docusate sodium 100 mg capsule mg PO 11/24/24 Unknown History levothyroxine 150 mcg tablet mcg 11/24/24 Unknown History vit no.95-ferrous tablet PO 11/24/24 Unknown History fumarate 28 mg-folic acid 800 mcg tablet () Allergies Allergy/AdvReac Type Severity Reaction Status Date / Time cefdinir Allergy Severe Hives / Verified 12/12/24 11:52 Red Face cephalexin Allergy Intermediate Itching Verified 12/12/24 11:52 clindamycin Allergy Rash Verified 12/12/24 11:52 Penicillins AdvReac Intermediate Nausea Verified 12/12/24 11:52 PMFSH Past Medical History Medical History hemorrhage Arthritis Neuropathy Depression Anxiety Hypoglycemia Vaginal discharge Encounter for screening examination for sexually transmitted disease Encounter for removal of intrauterine contraceptive device 10/22/2018 Encounter for insertion of intrauterine contraceptive device 06/16/2018 History of hypothyroidism Family History Family History Father Hypertension Grandparent Marfan syndrome Social History Social History Smoking status: Never smoker Second hand tobacco smoke exposure: No Alcohol intake: never Substance use: never Do You Feel Safe in your Home?: Yes Lack of Transportation: No Lack of Food: Never True Current Housing: I Have Housing Concerned About Future Housing: No Difficulty Paying Gas/Electric Bills: YES Difficulty Paying for Meds: No Currently Unemployed: No Education: High School Diploma/GED Difficulty w/ Childcare or Family Care: No Living arrangements: with family Occupation/Education: unemployed Gender identity (if verbalized by the patient): Female Sexual Orientation (if Verbalized by the Patient): Straight or Heterosexual Spiritual care concerns: No Comments At time of signature, agree with nursing past medical, surgical, social and family history. There is no relevant family history pertinent to the presenting complaint. Exam Narrative: GENERAL: This is a well-nourished, well-developed patient, in no apparent distress. HEAD: normocephalic, atraumatic. EYES: PERRL. Sclera clear/white. Vision is grossly intact. EARS: External ears normal, auditory canals clear and without drainage, TMs normal without perforation. Hearing grossly intact. NOSE: External nose normal with no obvious nasal discharge, nares without redness, no rhinorrhea. THROAT: Mucous membranes moist, posterior pharynx clear. NECK: Neck supple, non-tender without lymphadenopathy, masses or thyromegaly. CARDIOVASCULAR: Regular rate and rhythm without murmurs, gallops, or rubs. RESPIRATORY: Clear to auscultation. Breath sounds equal bilaterally. No wheezes, rales, or rhonchi. SKIN: warm, Dry, intact with no suspicious lesions or rash, good texture and turgor. NEURO: awake, alert, and oriented to person, place and time. There were no obvious focal neurologic abnormalities. EXTREMITIES: No joint tenderness, effusion, or edema noted. Course Course Level of Care: Express Care Visit Vital Signs Vital signs: Vital Signs Temperature 36.8 C 12/12/24 11:45 Pulse Rate 107 H 12/12/24 11:45 Respiratory Rate 16 12/12/24 11:45 Blood Pressure 90/71 L 12/12/24 11:45 Pulse Oximetry 98 12/12/24 11:45 Temperature 36.8 C 12/12/24 11:45 Pulse Rate 107 H 12/12/24 11:45 Respiratory Rate 16 12/12/24 11:45 Blood Pressure 90/71 L 12/12/24 11:45 Pulse Oximetry 98 12/12/24 11:45 Reviewed MDM - URI/Sore Throat MDM Narrative Medical decision making narrative: Negative COVID, influenza and strep. Strep culture ordered. Recommend [id number] medications to treat viral symptoms. Patient is well-appearing, nontoxic. Differential Diagnosis Differential diagnosis: Likely upper respiratory infection, sinusitis, viral infection, influenza and pharyngitis Lab Data Labs: Lab Results 12/12/24 Range/Units 11:54 POC Influenza A Ag Negative (Negative) POC Influenza B Ag Negative (Negative) POC SARS CoV-2 Ag Negative (Negative) POC Grp A Strep Screen Negative (Negative) Discharge Plan Discharge Clinical Impression: Upper respiratory infection, viral Patient Disposition: Home Condition: Stable Instructions: Upper Respiratory Infection (ED) Additional Instructions: Your COVID, influenza and strep test was negative today. Your strep culture will take 24-48 hours. If your strep culture is positive we will call you at that time and prescribed an antibiotic. Take [id number] medications as directed on packaging to treat her symptoms. Drink plenty water and rest. See your primary care physician if not improving. Patient Language: Japanese Prescriptions: No Action levothyroxine 150 mcg tablet docusate sodium 100 mg capsule PO PNV no.95-ferrous fumarate-FA [] 28 mg iron- 800 mcg tablet PO azithromycin 500 mg tablet 500 mg PO DAILY 5 Days Qty: 5 0RF Follow-up/Referrals: PHYSICIAN,ASSET PROTECTION DETECTIVE [Primary Care Provider, Internal Medicine] Time of Disposition: 12:32
[2024-12-12 11:45] VITALS: BP 90/71; PULSE 107; RESP 16; TEMP 36.8; O2SAT 98
[2024-12-12 12:32] LABS: EDCOVIDSCREEN Negative (Negative); EDINFLUASCREEN Negative (Negative); EDINFLUBSCREEN Negative (Negative); EDSTREPNEGPOS1 Negative (Negative)
== END 2024-12-12 12:45 | disposition home or self-care (01) ==
PROVIDERS: Emergency Provider Nurse Practitioner Family
DX: J06.9 Acute upper respiratory infection, unspecified (principal); Z20.822 Contact with and (suspected) exposure to COVID-19; E03.9 Hypothyroidism, unspecified; G62.9 Polyneuropathy, unspecified; M19.90 Unspecified osteoarthritis, unspecified site
CPT/HCPCS: 87081; 87426; 87804; 87880; 99213; G0463

== ENCOUNTER 2025-04-05 18:58 | Emergency (ER) | payer OTHER, SELFPAY ==
[2025-04-05 19:30] VITALS: BP 110/79; PULSE 78; RESP 16; TEMP 36.6; O2SAT 100
[2025-04-05 19:40] LABS: EDSTREPNEGPOS1 Negative (Negative)
--- NOTE | 2025-04-05 20:33 | ED_ITS ---
HPI - URI/Sore Throat General Chief Complaint: Upper Respiratory Infection Stated Complaint: SORE THROAT Time Seen by Provider: 04/05/25 20:11 Source: patient and RN notes reviewed Mode of arrival: ambulatory Limitations: no limitations History of Present Illness HPI Narrative: 29-year-old female patient presents today complaining of a 5 day history of sore throat, headache, and sneezing. She currently rates her pain 04/23. No OTC treatment prior to arrival. Related Data Home Medications ?Medication ?Instructions ?Recorded ?Confirmed ?Last Taken ?Type docusate sodium 100 mg capsule mg PO 11/24/24 Unknown History levothyroxine 150 mcg tablet mcg 11/24/24 Unknown His tory vit no.95-ferrous tablet PO 11/24/24 Unknown History fumarate 28 mg-folic acid 800 mcg tablet () Allergies Allergy/AdvReac Type Severity Reaction Status Date / Time cefdinir Allergy Severe Hives / Verified 12/12/24 11:52 Red Face cephalexin Allergy Intermediate Itching Verified 12/12/24 11:52 clindamycin Allergy Rash Verified 12/12/24 11:52 Penicillins AdvReac Intermediate Nausea Verified 12/12/24 11:52 PMFSH Past Medical History Medical History hemorrhage Arthritis Neuropathy Depression Anxiety Hypoglycemia Vaginal discharge Encounter for screening examination for sexually transmitted disease Encounter for removal of intrauterine contraceptive device 10/22/2018 Encounter for insertion of intrauterine contraceptive device 06/16/2018 History of hypothyroidism Family History Family History Father Hypertension Grandparent Marfan syndrome Social History Social History Smoking status: Never smoker Second hand tobacco smoke exposure: No Alcohol intake: never Substance use: never Lack of Transportation: No Lack of Food: Never True Current Housing: I Have Housing Concerned About Future Housing: No Difficulty Paying Gas/Electric Bills: YES Difficulty Paying for Meds: No Currently Unemployed: No Education: High School Diploma/GED Difficulty w/ Childcare or Family Care: No Living arrangements: with family Occupation/Education: unemployed Gender identity (if verbalized by the patient): Female Sexual Orientation (if Verbalized by the Patient): Straight or Heterosexual Spiritual care concerns: No Comments At time of signature, I have reviewed and agree with nursing past medical, surgical, social and family history unless otherwise noted. Please see nursing chart for further information. There is no relevant family history pertinent to the presenting complaint Exam Narrative: GENERAL: Well-appearing, well-nourished, and in no acute distress. HEAD: Normocephalic, atraumatic. EYES: EOMI. No redness or drainage. Conjunctivae normal. ENT: Mucous membranes pink and moist. Nares clear. No rhinorrhea. TMs normal bilaterally. Throat erythematous posteriorly with clear postnasal drainage. Uvula midline. NECK: Normal AROM. Supple. No lymphadenopathy. CHEST: No respiratory distress. Clear to auscultation. HEART: Regular rate and rhythm. No murmur appreciated. EXTREMITIES: Normal range of motion. No edema. SKIN: Warm, dry, no rash. Capillary refill normal. Normal skin turgor. NEURO: No focal deficits. Alert and oriented x3. Gait steady. PSYCH: Normal affect. No signs of depression or anxiety. Course Course Level of Care: Express Care Visit Vital Signs Vital signs: Vital Signs Temperature 97.9 F 04/05/25 19:30 Pulse Rate 78 04/05/25 19:30 Respiratory Rate 16 04/05/25 19:30 Blood Pressure 110/79 04/05/25 19:30 Pulse Oximetry 100 04/05/25 19:30 Temperature 97.9 F 04/05/25 19:30 Pulse Rate 78 04/05/25 19:30 Respiratory Rate 16 04/05/25 19:30 Blood Pressure 110/79 04/05/25 19:30 Pulse Oximetry 100 04/05/25 19:30 Reviewed MDM MDM Narrative Medical decision making narrative: 29-year-old female patient presents today complaining of a 5 day history of sore throat, headache, and sneezing. She currently rates her pain 1/10. No OTC treatment prior to arrival. Upon exam, patient has posterior erythematous throat without edema, exudate, with clear postnasal drainage. Negative rapid strep. Strep culture pending. Symptoms likely viral in etiology. Discussed [id number] medication use and duration of illness. No prescription medications indicated at this time. Anticipatory guidance given. Patient agrees with plan. Vital signs stable. Anticipatory guidance given. Differential Diagnosis Differential Diagnosis: URI, pharyngitis, strep throat Lab Data MDM Lab Attestation statement: I personally reviewed the patient's lab results. Labs: Lab Results 04/05/25 Range/Units 19:37 POC Grp A Strep Screen Negative (Negative) Critical Care Time Critical Care Time Critical Care Time: No Discharge Plan Discharge Clinical Impression: Upper respiratory infection Qualifiers: URI type: unspecified URI Qualified Code(s): J06.9 - Acute upper respiratory infection, unspecified Patient Disposition: Home Condition: Stable Instructions: Upper Respiratory Infection (DC) Additional Instructions: Your rapid strep swab was negative today at [facility]. You will be notified in a few days if the culture comes back positive for strep, and appropriate antibiotics will be called in for you at that time. Your symptoms are likely due to a viral illness, which is not treated with antibiotics. Viral symptoms can be present for up to 7-10 days. Take Tylenol or ibuprofen for fever or pain. Rest and stay hydrated. Follow up with your PCP in 7 days if symptoms are not improving. Go to the ER immediately if you have any difficulty breathing or swallowing. Patient Language: Guinean Prescriptions: No Action levothyroxine 150 mcg tablet docusate sodium 100 mg capsule PO PNV no.95-ferrous fumarate-FA [] 28 mg iron- 800 mcg tablet PO azithromycin 500 mg tablet 500 mg PO DAILY 5 Days Qty: 5 0RF Follow-up/Referrals: PHYSICIAN,UNMAN[employer] AIRCRAFT SYSTEMS ROBOTICIST [Primary Care Provider, Internal Medicine] Time of Disposition: 20:34
== END 2025-04-05 20:35 | disposition home or self-care (01) ==
PROVIDERS: Emergency Provider Nurse Practitioner
DX: J06.9 Acute upper respiratory infection, unspecified (principal); E03.9 Hypothyroidism, unspecified; M19.90 Unspecified osteoarthritis, unspecified site
CPT/HCPCS: 87081; 87880; 99213; G0463